=== PATIENT | female | born 1955 | race Caucasian/White ===

== ENCOUNTER → 2017-05-08 09:32 | Outpatient (CLI) | payer OTHER, SELFPAY ==
--- NOTE | 2017-05-08 09:47 | RAD_ITS ---
STUDY: X-RAY - LEFT KNEE REASON FOR EXAM: Female, 61 years old. Pain, no known injury TECHNIQUE: 4 view(s) of the knee. COMPARISON: None. FINDINGS: Normal visualized distal femur. Normal visualized proximal tibia and fibula. Normal proximal tibiofibular articulation. There is moderate degenerative arthrosis of the medial femorotibial compartment with moderate joint space narrowing. There is mild degenerative arthrosis of the lateral femorotibial compartment. There is mild degenerative arthrosis of the patellofemoral articulation. The soft tissue structures are unremarkable. RAD/Knee 4 or More Views IMPRESSION: Tricompartmental degenerative changes of the left knee most severely affecting the medial knee compartment. Electronically Signed: Joseph Boston MD at 22:22 EST , Service support ,
--- NOTE | 2017-05-08 09:49 | RAD_ITS ---
STUDY: X-RAY - RIGHT KNEE REASON FOR EXAM: Female, 61 years old. Bilateral knee pain TECHNIQUE: 4 view(s) of the knee. COMPARISON: None. FINDINGS: Normal visualized distal femur. Normal visualized proximal tibia and fibula. Normal proximal tibiofibular articulation. There is moderate degenerative arthrosis of the medial femorotibial compartment with moderate joint space narrowing. There is mild degenerative arthrosis of the lateral femorotibial compartment. There is severe degenerative arthrosis of the patellofemoral articulation. The soft tissue structures are unremarkable. RAD/Knee 4 or More Views IMPRESSION: Degenerative arthrosis. Electronically Signed: Josehp Boston MD at 16:52 EST , Service support ,
[2017-05-08 13:02] LABS: Absolute Lymphocyte Count 2.65 X10^3/ul (0.83-4.51); Absolute Neutrophil Count 3.6 X10^3/uL (2.0-7.7); Basophil# 0.04 X10^3/uL; Basophil% 0.6 % (0-1); Eosinophil# 0.16 X10^3/uL; Eosinophils% 2.3 % (0-5); Hematocrit 43.1 % (37-47); Hemoglobin 14.2 g/dl (12.0-15.0); Lymphocyte # 2.65 X10^3/ul (4.0); Lymphocyte % 37.7 % (19-41); Mean Corp Hgb Conc 32.9 g/gl (32-36); Mean Corpuscular Hgb 28.9 pg (27.0-32.0); Mean Corpuscular Volume 87.8 fL (81-99); Monocyte% 8.5 % (0-10); Neutrophil # 3.56 X10^3/uL (2.7-7.7); Neutrophil % 50.8 % (47-70); Platelet Count 285 K/mm3 (150-450); RBC Distribution Width CV 13.3 % (11.6-14.6); RBC Distribution Width SD 42.4 fl (35.1-43.9); Red Blood Count 4.91 M/mm3 (4.2-5.4)
[2017-05-08 13:06] LABS: POSITIVE COUNT NO; POSITIVE DIFFERENTIAL NO; POSITIVE MORPHOLOGY NO
[2017-05-08 13:08] LABS: Erythrocyte Sedimentation Rate 3 mm/hr (0-30)
[2017-05-08 13:14] LABS: ALB/GLOB Ratio 1.3 RATIO (0.9-2.4); AST(SGOT) 25 U/L (15-37); Alanine Aminotransfer ALT/SGPT 41 U/L (13-56); Albumin, Serum 4.3 g/dL (3.2-5.0); Alkaline Phosphatase 67 U/L (45-117); Anion Gap 9 (5-15); BUN 17 mg/dL (7-18); BUN/Creat Ratio 17.3 RATIO (10-20); CRP 5.27 mg/L (0.0-3.0); Calcium,Total 9.3 mg/dL (8.5-10.1); Chloride 101 mmol/L (98-107); Creatinine, Serum 0.98 mg/dL (0.55-1.02); EST Glomerular Filtration Rate 62 mL/min (>60); Est Glom Filt Rate - Afr Amer 74 mL/min (>60); Globulin 3.3 g/dL (2.2-4.2); Glucose 89 mg/dL (74-106); Potassium 3.9 mmol/L (3.5-5.1); Protein, Total 7.6 g/dL (6.4-8.2); Rheumatoid Factor < 10.0 IU/mL (<15); Sodium Level 138 mmol/L (136-145)
[2017-05-09 16:10] LABS: SJOGREN'S Anti-SS-A test < 0.2 AI (0.0-0.9); SJOGREN'S Anti-SS-B test 0.6 AI (0.0-0.9)
[2017-05-10 11:20] LABS: ANTINUCLEAR ANTIBODIES DIRECT Negative (Negative)
[2017-05-10 11:55] LABS: HEPATITIS B SURFACE AG Negative (Negative); Hep B Surface Antibodies Non Reactive (.); Hep C Antibodies <0.1 s/co ratio (0.0-0.9)
[2017-05-10 11:56] LABS: CCP IgG Antibodies < 1 units (0-19)
== END ==
PROVIDERS: Family Provider Internal Medicine; PCP Internal Medicine; Visit Provider Internal Medicine Rheumatology
DX: M06.4 Inflammatory polyarthropathy (principal); M17.0 Bilateral primary osteoarthritis of knee; M21.40 Flat foot [pes planus] (acquired), unspecified foot; I10 Essential (primary) hypertension; E11.9 Type 2 diabetes mellitus without complications; G47.33 Obstructive sleep apnea (adult) (pediatric)
CPT/HCPCS: 36415; 73564; 80053; 85025; 85652; 86038; 86140; 86200; 86235; 86431; 86706; 86803; 87340

== ENCOUNTER → 2017-09-17 07:37 | Outpatient (CLI) | payer OTHER, SELFPAY ==
[2017-09-17 10:41] LABS: Cholesterol 184 mg/dL (200); High Density Lipoprotein 42 mg/dL; Triglycerides 196 mg/dL; Very Low Density Lipoprotein 39 mg/dL (5-40)
== END ==
LOC: MTLAB 07:41
PROVIDERS: Family Provider Internal Medicine; PCP Internal Medicine; Visit Provider Internal Medicine
DX: E78.5 Hyperlipidemia, unspecified (principal)
CPT/HCPCS: 36415; 80061

== ENCOUNTER → 2018-03-13 08:17 | Outpatient (CLI) | payer OTHER, SELFPAY ==
[2018-03-13 10:20] LABS: Hemoglobin A1c 5.9 % (4.2-6.3)
[2018-03-13 10:30] LABS: Anion Gap 8 (5-15); BUN 24 mg/dL (7-18); BUN/Creat Ratio 30.3 RATIO (10-20); Calcium,Total 8.7 mg/dL (8.5-10.1); Chloride 104 mmol/L (98-107); Cholesterol 185 mg/dL (200); Creatinine, Serum 0.79 mg/dL (0.55-1.02); EST Glomerular Filtration Rate 78 mL/min (>60); Est Glom Filt Rate - Afr Amer 95 mL/min (>60); Glucose 105 mg/dL (74-106); High Density Lipoprotein 50 mg/dL; Potassium 3.7 mmol/L (3.5-5.1); Sodium Level 141 mmol/L (136-145); Triglycerides 146 mg/dL; Very Low Density Lipoprotein 29 mg/dL (5-40)
[2018-03-13 10:43] LABS: Microalbumin,Random Urine 5.9 mg/L (NO RANGE EST.)
== END ==
LOC: MTLAB 08:19
PROVIDERS: Family Provider Internal Medicine; PCP Internal Medicine; Referring Provider Internal Medicine; Visit Provider Internal Medicine
DX: E11.9 Type 2 diabetes mellitus without complications (principal); I10 Essential (primary) hypertension; E78.5 Hyperlipidemia, unspecified
CPT/HCPCS: 36415; 80048; 80061; 82043; 82570; 83036

== ENCOUNTER → 2018-05-12 07:46 | Outpatient (CLI) | payer OTHER, SELFPAY ==
[2018-05-12 10:10] LABS: Absolute Neutrophil Count 3.7 X10^3/uL (2.0-7.7); Basophil# 0.04 X10^3/uL; Basophil% 0.6 % (0-1); Eosinophil# 0.23 X10^3/uL; Eosinophils% 3.3 % (0-5); Hematocrit 42.4 % (37-47); Hemoglobin 13.9 g/dl (12.0-15.0); Lymphocyte % 35.6 % (19-41); Mean Corp Hgb Conc 32.8 g/gl (32-36); Mean Corpuscular Hgb 28.9 pg (27.0-32.0); Mean Corpuscular Volume 88.1 fL (81-99); Mean Platelet Vol. 9.8 fl (6.2-12.0); Monocyte# 0.55 X10^3/uL; Monocyte% 7.8 % (0-10); Neutrophil # 3.69 X10^3/uL (2.7-7.7); Neutrophil % 52.6 % (47-70); POSITIVE COUNT NO; POSITIVE DIFFERENTIAL NO; POSITIVE MORPHOLOGY NO; Platelet Count 263 K/mm3 (150-450); RBC Distribution Width CV 13.2 % (11.6-14.6); RBC Distribution Width SD 42.5 fl (35.1-43.9); Red Blood Count 4.81 M/mm3 (4.2-5.4)
[2018-05-12 10:46] LABS: ALB/GLOB Ratio 1.2 RATIO (0.9-2.4); AST(SGOT) 19 U/L (15-37); Alanine Aminotransfer ALT/SGPT 24 U/L (13-56); Alkaline Phosphatase 69 U/L (45-117); Anion Gap 8 (5-15); BUN 16 mg/dL (7-18); BUN/Creat Ratio 22.1 RATIO (10-20); Chloride 103 mmol/L (98-107); Cholesterol 137 mg/dL (200); Creatinine, Serum 0.72 mg/dL (0.55-1.02); EST Glomerular Filtration Rate 87 mL/min (>60); Est Glom Filt Rate - Afr Amer 105 mL/min (>60); Globulin 3.4 g/dL (2.2-4.2); Glucose 112 mg/dL (74-106); High Density Lipoprotein 63 mg/dL; Potassium 3.7 mmol/L (3.5-5.1); Protein, Total 7.4 g/dL (6.4-8.2); Sodium Level 138 mmol/L (136-145); Thyroid Stim Hormone (TSH) 2.59 uIU/mL (0.358-3.74); Triglycerides 98 mg/dL; Very Low Density Lipoprotein 20 mg/dL (5-40)
[2018-05-12 10:47] LABS: Hemoglobin A1c 5.7 % (4.2-6.3)
== END ==
LOC: MTLAB 07:49
PROVIDERS: Family Provider Family Medicine; PCP Family Medicine; Referring Provider Registered Nurse; Visit Provider Registered Nurse
DX: R53.82 Chronic fatigue, unspecified (principal); E66.9 Obesity, unspecified
CPT/HCPCS: 36415; 80053; 80061; 83036; 84443; 85025

== ENCOUNTER → 2019-03-20 08:57 | Outpatient (CLI) | payer OTHER, SELFPAY ==
--- NOTE | 2019-03-20 09:03 | RAD_ITS ---
STUDY: X-RAY - PELVIS AND BILATERAL HIPS REASON FOR EXAM: Female, 63 years old. hip pain, more on the left TECHNIQUE: AP view of the pelvis.? 2 views of the right hip, and 2 views of the left hip were obtained. COMPARISON: None. FINDINGS: There is a non-specific bowel gas pattern. Normal visualized soft tissue structures. There is narrowing with cortical sclerosis and osteophyte formation of the sacroiliac joint consistent with degenerative osteoarthritic changes. Normal bilateral superior and inferior pubic rami. Normal pubic symphysis. Normal bilateral ischial tuberosities. Normal visualized right femoral head. There is mild osteoarthritic spur formation of the right acetabular rim. There is mild articular joint space narrowing of the right hip. Normal visualized left femoral head. There is mild osteoarthritic spur formation of the left acetabular rim. There is mild articular joint space narrowing of the left hip. RAD/Hips B/L min 2 views w/ Pelvis IMPRESSION: Degenerative disease of the SI joints, bilateral hips otherwise normal X-ray examination of the pelvis and bilateral hips. Electronically Signed: Alana Zavala MD at 4:14 EST , Service support ,
--- NOTE | 2019-03-20 09:03 | RAD_ITS ---
STUDY: X-RAY - RIGHT KNEE REASON FOR EXAM: Female, 63 years old. Knee pain TECHNIQUE: 4 view(s) of the knee. COMPARISON: None. FINDINGS: Normal visualized distal femur. Normal visualized proximal tibia and fibula. Normal proximal tibiofibular articulation. There is moderate degenerative arthrosis of the medial femorotibial compartment with moderate joint space narrowing. Normal lateral femorotibial compartment. There is moderate degenerative arthrosis of the patellofemoral articulation. The soft tissue structures are unremarkable. RAD/Knee 4 or More Views IMPRESSION: Degenerative arthrosis. Electronically Signed: Abhishek Rubin MD at 9:08 EST , Service support ,
--- NOTE | 2019-03-20 09:03 | RAD_ITS ---
STUDY: X-RAY - LEFT KNEE REASON FOR EXAM: Female, 63 years old. Knee pain TECHNIQUE: 4 view(s) of the knee. COMPARISON: None. FINDINGS: Normal visualized distal femur. Normal visualized proximal tibia and fibula. Normal proximal tibiofibular articulation. Minimal spurring and narrowing at the medial femorotibial compartment. Mild spurring at the lateral femorotibial compartment. Mild spurring and narrowing at the patellofemoral articulation. The soft tissue structures are unremarkable. Chondrocalcinosis of the menisci. RAD/Knee 4 or More Views IMPRESSION: Degenerative changes of the knee. Electronically Signed: Alvin Cobb DO at 10:34 EST Tel [phone], Service support ,
[2019-03-20 09:09] LABS: Mucous, Urine 0 SEEN /hpf (<or=2+); Red Blood Cells-Urine 0 SEEN /hpf (0-5)
[2019-03-20 10:17] LABS: Color, Urine Yellow (Yellow); Glucose, Dipstick Normal (Normal); Ketone-Dipstick Negative (Negative); Leukocyte Esterase-Dipstick 500 /ul (Negative); Nitrite-Dipstick Negative (Negative); Occult Blood-Urine 10 /ul (Negative); Protein-Dipstick Negative (Negative); Urine Bilirubin Dipstick Negative (Negative); Urine Clarity Clear (Clear); Urine Urobilinogen Normal (Normal)
[2019-03-20 10:25] LABS: Absolute Lymphocyte Count 3.29 X10^3/uL (0.83-4.51); Absolute Neutrophil Count 4.7 X10^3/uL (2.0-7.7); Basophil# 0.07 X10^3/uL; Basophil% 0.8 % (0-1); Eosinophil# 0.15 X10^3/uL; Eosinophils% 1.7 % (0-5); Hematocrit 44.2 % (37-47); Hemoglobin 14.8 g/dL (12.0-15.0); Lymphocyte # 3.29 X10^3/ul (4.0); Lymphocyte % 36.7 % (19-41); Mean Corp Hgb Conc 33.5 g/dL (32-36); Mean Corpuscular Hgb 29.1 pg (27.0-32.0); Mean Platelet Vol. 9.9 fl (6.2-12.0); Monocyte# 0.78 X10^3/uL; Monocyte% 8.7 % (0-10); NRBC Flagged by Analyzer 0 % (0-5); Neutrophil # 4.65 X10^3/uL (2.7-7.7); Neutrophil % 51.9 % (47-70); Platelet Count 277 K/mm3 (150-450); RBC Distribution Width CV 12.7 % (11.6-14.6); Red Blood Count 5.08 M/mm3 (4.2-5.4)
[2019-03-20 10:38] LABS: Bacteria 1+ /hpf (None Seen); Squamous Epithelial Cells - UA 0-5 SEEN /hpf (5-10); White Blood Cells 0-5 SEEN /hpf (0-5)
[2019-03-20 10:49] LABS: Hemoglobin A1c 5.6 % (4.2-6.3)
[2019-03-20 10:54] LABS: ALB/GLOB Ratio 1.3 RATIO (0.9-2.4); AST(SGOT) 16 U/L (15-37); Alanine Aminotransfer ALT/SGPT 23 U/L (13-56); Albumin, Serum 4.4 g/dL (3.2-5.0); Alkaline Phosphatase 86 U/L (45-117); Anion Gap 5 (5-15); BUN 11 mg/dL (7-18); BUN/Creat Ratio 14.7 RATIO (10-20); Calcium,Total 9.7 mg/dL (8.5-10.1); Chloride 103 mmol/L (98-107); Cholesterol 153 mg/dL (200); Creatinine, Serum 0.75 mg/dL (0.55-1.02); EST Glomerular Filtration Rate 83 mL/min (>60); Est Glom Filt Rate - Afr Amer 101 mL/min (>60); Globulin 3.4 g/dL (2.2-4.2); Glucose 98 mg/dL (74-106); High Density Lipoprotein 66 mg/dL; Potassium 3.8 mmol/L (3.5-5.1); Protein, Total 7.8 g/dL (6.4-8.2); Sodium Level 137 mmol/L (136-145); Thyroid Stim Hormone (TSH) 1.44 uIU/mL (0.358-3.74); Triglycerides 105 mg/dL; Very Low Density Lipoprotein 21 mg/dL (5-40)
[2019-03-20 11:42] LABS: Microalbumin,Random Urine 10.3 mg/L (NO RANGE EST.); Microalbumin:Creatinine Ratio 15.8 mg/g CRE (<30 mg/g CRE)
== END ==
PROVIDERS: Family Provider Family Medicine; PCP Family Medicine; Referring Provider Family Medicine; Visit Provider Family Medicine
DX: M25.551 Pain in right hip (principal); M25.552 Pain in left hip; M25.561 Pain in right knee; M25.562 Pain in left knee; E11.9 Type 2 diabetes mellitus without complications; I10 Essential (primary) hypertension; E78.5 Hyperlipidemia, unspecified
CPT/HCPCS: 36415; 73521; 73564; 80053; 80061; 81001; 82043; 82570; 83036; 84443; 85025

== ENCOUNTER → 2020-05-26 11:34 | Outpatient (CLI) | payer MEDICAID, SELFPAY ==
[2020-05-26 14:56] LABS: Absolute Lymphocyte Count 3.13 X10^3/uL (0.83-4.51); Absolute Neutrophil Count 4.2 X10^3/uL (2.0-7.7); Basophil# 0.06 X10^3/uL; Basophil% 0.7 % (0-1); Eosinophil# 0.18 X10^3/uL; Eosinophils% 2.1 % (0-5); Lymphocyte # 3.13 X10^3/ul (4.0); Mean Corp Hgb Conc 33.3 g/dL (32-36); Mean Corpuscular Hgb 29.7 pg (27.0-32.0); Mean Corpuscular Volume 89.2 fL (81-99); Mean Platelet Vol. 10.1 fl (6.2-12.0); Monocyte# 0.84 X10^3/uL; Monocyte% 9.9 % (0-10); NRBC Flagged by Analyzer 0 % (0-5); Neutrophil # 4.22 X10^3/uL (2.7-7.7); Neutrophil % 49.9 % (47-70); Platelet Count 282 K/mm3 (150-450); RBC Distribution Width CV 13.8 % (11.6-14.6); RBC Distribution Width SD 45.1 fl (35.1-43.9); Red Blood Count 4.71 M/mm3 (4.2-5.4); White Blood Count 8.5 K/mm3 (4.4-11.0)
[2020-05-26 15:27] LABS: Hemoglobin A1c 5.6 % (3.8-5.6)
[2020-05-26 15:36] LABS: ALB/GLOB Ratio 1.2 RATIO (0.9-2.4); AST(SGOT) 10 U/L (15-37); Alanine Aminotransfer ALT/SGPT 20 U/L (13-56); Albumin, Serum 4.1 g/dL (3.2-5.0); Alkaline Phosphatase 73 U/L (45-117); Anion Gap 5 (5-15); BUN 25 mg/dL (7-18); BUN/Creat Ratio 31.7 RATIO (10-20); Calcium,Total 9.6 mg/dL (8.5-10.1); Chloride 102 mmol/L (98-107); Cholesterol 270 mg/dL (200); Creatinine, Serum 0.79 mg/dL (0.55-1.02); EST Glomerular Filtration Rate 78 mL/min (>60); Est Glom Filt Rate - Afr Amer 95 mL/min (>60); Globulin 3.5 g/dL (2.2-4.2); Glucose 97 mg/dL (74-106); High Density Lipoprotein 62 mg/dL; Potassium 3.9 mmol/L (3.5-5.1); Protein, Total 7.6 g/dL (6.4-8.2); Sodium Level 139 mmol/L (136-145); Thyroid Stim Hormone (TSH) 2.67 uIU/mL (0.358-3.74); Triglycerides 92 mg/dL; Very Low Density Lipoprotein 18 mg/dL (5-40)
== END ==
PROVIDERS: Nurse Practitioner Adult Health
DX: I10 Essential (primary) hypertension (principal); Z12.11 Encounter for screening for malignant neoplasm of colon
CPT/HCPCS: 36415; 80053; 80061; 82274; 83036; 84443; 85025

== ENCOUNTER → 2020-06-29 10:35 | Outpatient (CLI) | payer MEDICAID, SELFPAY ==
--- NOTE | 2020-06-29 10:37 | BI_ITS ---
MAMMOGRAPHY - BILATERAL SCREENING REASON FOR EXAM: Female, 64 years old. Routine annual screening examination. PERTINENT HISTORY: Non-contributory. TECHNIQUE: Digital bilateral breast emy (3D mammographic acquisition) in the CC and MLO projections. 2-D mediolateral oblique (MLO) and craniocaudad (CC) views of both breasts were obtained. CAD: Full Field Digital Mammography with Computer Added Detection was performed. COMPARISON: Comparison is made with prior examination dated 12/02/2015. FINDINGS: Breast Composition: The breasts are almost entirely fatty. There are no dominant masses or suspicious calcifications. No other significant abnormalities are identified. There has been no significant change since the prior study. BI/SCRN MAMM (CAD)W/EMY BILAT IMPRESSION: Stable bilateral screening mammogram. Yearly follow-up mammogram recommended. (A) ASSESSMENT CATEGORY: BIRADS Category 1: Negative. A letter regarding these results will be sent to the patient by the facility within 30 days. Approximately 10% of breast cancers are not detected by mammography. A normal mammogram should not delay biopsy of a clinically suspicious abnormality. [id number] Electronically Signed: Cooper Latham MD at 13:19 EDT , Service support ,
--- NOTE | 2020-06-29 10:40 | BD_ITS ---
STUDY: DUAL ENERGY X-RAY ABSORPTIOMETRY / DXA REASON FOR EXAM: Female, 64 years old. M810 -- OSTEO TECHNIQUE: Bone Mineral Density (BMD) measurements of lumbar spine and bilateral hips were obtained. COMPARISON: None. FINDINGS: Lumbar Spine (L1-L4): g/cm2 (1.384) / T-score (1.7) / Z-score (3.2) Findings are suggestive of normal bone density with a low fracture risk. Left Femur Total: g/cm2 (1.224) / T-score (1.7) / Z-score (2.8) Left Femoral Neck: g/cm2 (1.080) / T-score (0.3) / Z-score (1.7) Right Femur Total: g/cm2 (1.225) / T-score (1.7) / Z-score (2.8) Right Femoral Neck: g/cm2 (1.142) / T-score (0.7) / Z-score (2.1) BD/Dexa Bone Density Study IMPRESSION: The patient is considered normal as outlined below according to World Alok Organization (WHO) criteria with a low fracture risk. Reference Information: The T-score is the number of standard deviations above or below the standard which is normal for young adults at their peak bone mineral density. The World Health Organization (WHO) interprets the T-scores as follows: Above -1 Normal bone density Between -1 and -2.5 Osteopenia Equal to / or below -2.5 Osteoporosis As a practical clinical guideline, osteopenia may be graded as follows: Mild -1 through -1.5 Moderate -1.6 through -2.0 Severe -2.1 through -2.4 The Z-score is the number of standard deviations above or below age-matched controls. A Z-score of less than -1.5 would be considered abnormal. References: 1. NIH Osteoporosis and Related Bone Diseases www osteo.org 2. International Society for Clinical Densitometry www iscd.org 3. National Osteoporosis Foundation www nof.org Electronically Signed: Cooper Latham MD at 15:44 EDT , Service support ,
== END ==
DX: Z12.31 Encounter for screening mammogram for malignant neoplasm of breast (principal); M81.0 Age-related osteoporosis without current pathological fracture
CPT/HCPCS: 77063; 77067; 77080

== ENCOUNTER → 2022-05-18 | Outpatient (CLI) | payer MEDICARE, SELFPAY ==
[2022-05-18 11:28] LABS: Hematocrit 42.6 % (37-47); Hemoglobin 14.3 g/dL (12.0-15.0); Mean Corp Hgb Conc 33.6 g/dL (32-36); Mean Corpuscular Hgb 29.1 pg (27.0-32.0); Mean Corpuscular Volume 86.6 fL (81-99); Mean Platelet Vol. 9.8 fl (6.2-12.0); Platelet Count 287 K/mm3 (150-450); RBC Distribution Width CV 13.1 % (11.6-14.6); RBC Distribution Width SD 41.2 fl (35.1-43.9); Red Blood Count 4.92 M/mm3 (4.2-5.4)
[2022-05-18 11:59] LABS: ALB/GLOB Ratio 1.2 RATIO (0.9-2.4); AST(SGOT) 19 U/L (15-37); Alanine Aminotransfer ALT/SGPT 17 U/L (13-56); Albumin, Serum 4.3 g/dL (3.2-5.0); Alkaline Phosphatase 75 U/L (45-117); Anion Gap 5 (5-15); BUN 21 mg/dL (7-18); BUN/Creat Ratio 23.3 RATIO (10-20); Calcium,Total 9.4 mg/dL (8.5-10.1); Chloride 102 mmol/L (98-107); Cholesterol 151 mg/dL (200); EST Glomerular Filtration Rate 67 mL/min (>60); Est Glom Filt Rate - Afr Amer 81 mL/min (>60); Globulin 3.7 g/dL (2.2-4.2); Glucose 105 mg/dL (74-106); High Density Lipoprotein 59 mg/dL; Potassium 3.8 mmol/L (3.5-5.1); Sodium Level 138 mmol/L (136-145); T4 Total, Thyroxin 9.6 ug/dL (4.8-13.9); Thyroid Stim Hormone (TSH) 2.03 uIU/mL (0.358-3.74); Triglycerides 128 mg/dL; Very Low Density Lipoprotein 26 mg/dL (5-40)
[2022-05-18 12:01] LABS: Hemoglobin A1c 5.5 % (3.8-5.6)
== END | disposition home or self-care (01) ==
LOC: LAB 10:14
PROVIDERS: Referring Provider Nurse Practitioner Women's Health; Visit Provider Nurse Practitioner Women's Health
DX: R87.615 Unsatisfactory cytologic smear of cervix (principal); E78.5 Hyperlipidemia, unspecified
CPT/HCPCS: 36415; 80053; 80061; 83036; 84436; 84443; 85027

== ENCOUNTER → 2023-01-25 | Outpatient (CLI) | payer MEDICARE, SELFPAY ==
[2023-01-25 08:24] LABS: Erythrocyte Sedimentation Rate 7 mm/hr (0-30)
[2023-01-25 08:27] LABS: Absolute Lymphocyte Count 2.47 X10^3/uL (0.83-4.51); Absolute Neutrophil Count 4.8 X10^3/uL (2.0-7.7); Basophil# 0.06 X10^3/uL; Basophil% 0.7 % (0-1); Eosinophil# 0.28 X10^3/uL; Eosinophils% 3.3 % (0-5); Hematocrit 43.3 % (37-47); Hemoglobin 13.6 g/dL (12.0-15.0); Lymphocyte # 2.47 X10^3/ul (0.83-4.51); Lymphocyte % 29.5 % (19-41); Mean Corp Hgb Conc 31.4 g/dL (32-36); Mean Corpuscular Hgb 28.3 pg (27.0-32.0); Mean Corpuscular Volume 90.2 fL (81-99); Mean Platelet Vol. 9.6 fl (6.2-12.0); Monocyte% 8.4 % (0-10); NRBC Flagged by Analyzer 0 % (0-5); Neutrophil # 4.81 X10^3/uL (2.7-7.7); Neutrophil % 57.6 % (47-70); Platelet Count 316 K/mm3 (150-450); RBC Distribution Width CV 13.1 % (11.6-14.6); White Blood Count 8.4 K/mm3 (4.4-11.0)
[2023-01-25 09:37] LABS: Hemoglobin A1c 5.5 % (3.8-5.6)
[2023-01-25 11:07] LABS: ALB/GLOB Ratio 1.1 RATIO (0.9-2.4); AST(SGOT) 13 U/L (15-37); Alanine Aminotransfer ALT/SGPT 18 U/L (13-56); Albumin, Serum 3.8 g/dL (3.2-5.0); Alkaline Phosphatase 78 U/L (45-117); Anion Gap 3 (5-15); BUN 25 mg/dL (7-18); BUN/Creat Ratio 28.1 RATIO (10-20); CRP, High Sensitivity Cardiac 7.53 mg/L; Calcium,Total 9.3 mg/dL (8.5-10.1); Chloride 104 mmol/L (98-107); Cholesterol 230 mg/dL (200); Creatinine, Serum 0.89 mg/dL (0.55-1.02); EST Glomerular Filtration Rate 67 mL/min (>60); Est Glom Filt Rate - Afr Amer 82 mL/min (>60); Globulin 3.5 g/dL (2.2-4.2); Glucose 111 mg/dL (74-106); High Density Lipoprotein 51 mg/dL; Magnesium 2.6 mg/dL (1.6-2.6); Potassium 4.3 mmol/L (3.5-5.1); Protein, Total 7.3 g/dL (6.4-8.2); Rheumatoid Factor < 10.0 IU/mL (<15); Sodium Level 139 mmol/L (136-145); Triglycerides 152 mg/dL; Very Low Density Lipoprotein 30 mg/dL (5-40)
[2023-01-28 13:07] LABS: ANTINUCLEAR ANTIBODIES DIRECT Negative (Negative)
== END | disposition home or self-care (01) ==
LOC: LAB 07:19
PROVIDERS: Nurse Practitioner Family
DX: R00.2 Palpitations (principal); E78.5 Hyperlipidemia, unspecified; I10 Essential (primary) hypertension; E66.9 Obesity, unspecified; M25.50 Pain in unspecified joint
CPT/HCPCS: 36415; 80053; 80061; 83036; 83735; 84443; 85025; 85652; 86038; 86141; 86431

== ENCOUNTER 2023-02-04 14:31 | Emergency (ER) | payer MEDICARE, SELFPAY ==
[2023-02-04] VITALS (7 sets, daily range): BP systolic 187–231; BP diastolic 70–114; PULSE 60–90; RESP 20–22; TEMP 36.2; O2SAT 91–97; BMI 51.3
--- NOTE | 2023-02-04 14:50 | EKG12_ITS ---
Test Reason : SOB Blood Pressure : / mmHG Vent. Rate : 064 BPM Atrial Rate : 064 BPM P-R Int : 162 ms QRS Dur : 086 ms QT Int : 436 ms P-R-T Axes : 040 -17 006 degrees QTc Int : 449 ms Normal sinus rhythm Moderate voltage criteria for LVH, may be normal variant ( R in aVL , Patterson product ) Borderline ECG Confirmed by BIN MAN, KYLER ([id number]), book editor GABRIEL MANTILLA ([id number]) on 02/05/2023 7:53:53 AM Referred By: Confirmed By:KYLER STEWARD MD
--- NOTE | 2023-02-04 14:52 | ED.RN ---
NO OLD EKG
--- NOTE | 2023-02-04 14:54 | ED.VIS.DYS ---
HPI History of Present Illness Chief Complaint: Shortness of Breath Informant: patient Narrative Narrative: Presents to the ED by private vehicle worsening dyspnea over the past week. Denies cough. States minimal leg swelling. Denies orthopnea. Denies COPD or asthma, remote tobacco quit 15 years ago. Occasional chest pain and tightness with walking. No fevers or headaches. History of hypertension on metoprolol losartan hydrochlorothiazide took her dosing this morning. Denies any cardiac history. She states she works in [employer] and [employer]. Symptoms worsened today. States her pulse ox was 87% at home. She denies recent travel, surgeries, or immobilizations. No history of PE or DVT. She states she is hoping it was just COVID. PE Risk Factors: Negative for Cancer, OCP + Smoking + > 35, Prior DVT or PE, Recent immobilization, Recent surgery or Recent travel Prior similar symptoms: No PFSH PFSH Medical History (Updated 02/04/23 @ 20:[address] Stevenson Falcon DO) HTN (hypertension) Home Medications losartan 100 mg-hydrochlorothiazide 25 mg tablet tab 02/04/23 [History Last Taken Unknown] meloxicam 15 mg tablet mg 02/04/23 [History Last Taken Unknown] metoprolol tartrate 100 mg tablet mg 02/04/23 [History Last Taken Unknown] oxybutynin chloride 10 mg tablet,extended release 24 hr mg PO 02/04/23 [History Last Taken Unknown] rosuvastatin 10 mg tablet mg 02/04/23 [History Last Taken Unknown] Allergy/AdvReac Type Severity Reaction Status Date / Time No Known Allergies Allergy Verified 02/04/23 14:32 Social History Smoking Status: Former smoker ROS ROS ED Constitutional Constitutional ED: Denies chills, fever(s) or sweats Eyes Eyes: Denies change in vision ENT ENT ED: Denies dysphagia or sore throat Cardiovascular Cardiovascular: Denies chest pain, leg edema, orthopnea, palpitations or racing heartbeat Respiratory/Chest Respiratory/Chest: Reports dyspnea and dyspnea on exertion; Denies cough or orthopnea Gastrointestinal Gastrointestinal: Denies abdominal pain, diarrhea, nausea or vomiting Genitourinary Genitourinary ED: Denies dysuria, hematuria or urinary frequency Musculoskeletal Musculoskeletal: Denies back pain, extremity pain or neck pain Integumentary Denies rash or wounds Neurologic Neurologic: Denies headache(s), paresthesias or weakness EXAM Physical Exam Const Vital Signs: 02/04/23 14:32 02/04/23 15:01 02/04/23 15:05 Temperature 97.2 F L Temperature Source Temporal Pulse Rate 90 66 Respiratory Rate 20 H 20 H Respiratory Effort Normal Respiratory Depth Normal Respiratory Pattern Normal Blood Pressure 231/114 H 193/96 H Blood Pressure Mean 153 128 Pulse Ox 91 95 Oxygen Delivery Method Room Air Room Air Room Air 02/04/23 18:38 02/04/23 19:47 02/04/23 20:13 Temperature Temperature Source Pulse Rate 60 64 Respiratory Rate 22 H 21 H Respiratory Effort Respiratory Depth Respiratory Pattern Blood Pressure 187/70 H 195/97 H 202/95 H Blood Pressure Mean 109 129 130 Pulse Ox 96 97 Oxygen Delivery Method Room Air Room Air Positive well nourished and well developed General Appearance ED: well developed and NAD HEENT Reports moist mucous membranes normocephalic and atraumatic Eyes PERRL, EOMs intact bilaterally and conjunctivae normal General Eye ED: Yes normal appearance of both eyes Neck no lymphadenopathy and supple General: Negative for tenderness Chest Wall Chest: Negative for tenderness Resp normal respiratory effort and normal air movement Effort and Inspection: symmetric chest movement; Negative for respiratory distress Cardio regular rate, regular rhythm and no murmurs Peripheral Pulses: pulses 2+ throughout GI normal to inspection, nondistended, normoactive bowel sounds and non-tender Palpation: Negative for guarding or rebound tenderness present Back/Spine no CVA tenderness and no thoracic nor lumbar tenderness Extremity normal to inspection General Extremety ED: Negative for edema or tenderness General Extremity: Negative for edema Neuro oriented x3 and no sensory deficits noted Sensorium / Orientation: awake and alert Skin no rashes or lesions noted and no wounds MDM MDM MDM Narrative Medical decision making narrative: Interventions / MDM: Differential diagnosis: Dyspnea, hypertension Diagnosis considered but do not suspect: Pulm embolism however CT negative. DVT, negative ultrasound. ACS however EKG with no ischemic findings with cardiac enzymes negative x 2. My EKG interpretation: Sinus rhythm 64, no ST changes, isolated T wave version lead III. Nonspecific. Imaging independently reviewed and interpreted by myself: CTA chest: No PE, no acute process, artifact noted peripherally per radiology. External documents reviewed: N/A Test considered but not ordered:N/A ED course: Patient exertional dyspnea without any cough. Blood pressure elevated 231/114 on arrival. No orthopnea symptoms. Cardiac workup initiated, low risk Wells criteria for PE, D-dimer obtained. EKG with nonspecific findings. 1600: Initial opponent negative BNP 433. D-dimer up at 1.66. CTA chest ordered for further evaluation. COVID and flu. 1800: CTA negative for central PE there is respiratory artifact unable to evaluate peripherally per radiology read. Ultrasound lower extremities ordered negative for DVT. 1900: Repeat troponin negative. Patient was ambulated reported mild dyspnea however not as significant as previous, pulse ox lowest at 94%. Blood pressure improved without treatment. Daughter currently present and patient states she has been having increasing urine frequency no dysuria. Request urine be sent. This was ordered. Results of urine negative. Patient reassured. She will continue home blood pressure medicines she will keep a log. She will monitor symptoms. Discussed likely would need a stress echocardiogram for further evaluation as an outpatient. Strict return precautions. All questions were answered. Re-evaluation: stable Disposition discussed with patient/family/significant other: Patient and daughter Case discussed with consulting clinician: N/A This note was generated with [employer] dictation software. It may contain incorrect words, spelling, and punctuation that were not noted in checking the note before signing. Lab Data Attestation: I reviewed the patient's lab results. Labs: Laboratory Results - last 24 hr 02/04/23 02/04/23 02/04/23 15:00 17:45 19:20 WBC 10.7 RBC 4.79 Hgb 13.6 Hct 42.2 MCV 88.1 MCH 28.4 MCHC 32.2 RDW Std Deviation 42.1 RDW Coeff of Angelica 13.0 Plt Count 281 MPV 9.5 Immature Gran % (Auto) 0.600 Neut % (Auto) 63.2 Lymph % (Auto) 26.4 [place] % (Auto) 6.5 Eos % (Auto) 2.6 Baso % (Auto) 0.7 Absolute Neuts (auto) 6.8 Absolute Lymphs (auto) 2.83 Nucleated RBC % 0 PT 12.9 INR 1.0 APTT 29.6 D-Dimer Quant (PE/DVT) 1.66 H* Sodium 138 Potassium 3.9 Chloride 105 Carbon Dioxide 27.0 Anion Gap 6 BUN 19 H Creatinine 0.66 Estim Creat Clear Calc 51.81 Est GFR (MDRD) Af Amer 115 Est GFR (MDRD) Non-Af 95 BUN/Creatinine Ratio 28.8 H Glucose 105 Calcium 9.0 Troponin I High Sens 15 15 B-Natriuretic Peptide 433.7 H Urine Color Yellow Urine Clarity Clear Urine pH 8.0 Ur Specific [place] 1.010 Urine Protein Negative Urine Glucose (UA) Normal Urine Ketones Negative Urine Occult Blood 10 H Urine Nitrite Negative Urine Bilirubin Negative Urine Urobilinogen Normal Ur Leukocyte Esterase Negative Urine RBC 0 SEEN Urine WBC 0 SEEN Ur Squamous Epith Cells 0 SEEN Urine Bacteria 0 SEEN Urine Mucus 0 SEEN Radiography Diagnostic Testing: Clinical Impression(s) from Imaging Studies Chest CTA 02/04/23 15:36 IMPRESSION: No definitive evidence for embolus given limited study due to respiratory motion artifact If strong clinical suspicion for pulmonary embolus Doppler scanning of deep venous system of lower extremities recommended ASHD and mild interstitial thickening in the lower lobes. Electronically Signed: oCmpa Flowers MD at 16:33 EST Reading Location ID and State: [address] [place] [address] Tel [phone], Service support , Venous Duplex 02/04/23 17:07 IMPRESSION: Normal venous Doppler ultrasound of the bilateral lower extremities. Electronically Signed: Compa Flowers MD at 18:00 EST , Discharge Plan Triage Chief Complaint: Shortness of Breath ED Provider: Stevenson Falcon Dx/Rx/DC Orders Clinical Impression: Urine frequency, Dyspnea, Hypertension Instructions: Controlling High Blood Pressure, ED Dyspnea Prescriptions: No Action oxybutynin chloride 10 mg tablet extended release 24hr PO Patient Comments: take 1 tablet by mouth once daily metoprolol tartrate 100 mg tablet Patient Comments: take 1 tablet by mouth twice a day meloxicam 15 mg tablet Patient Comments: take 1 tablet by mouth once daily losartan-hydrochlorothiazide 100-25 mg tablet Patient Comments: take 1 tablet by mouth once daily rosuvastatin 10 mg tablet Patient Comments: take 1 tablet by mouth once daily Primary Care Provider: [facility] Referrals: [facility] [Primary Care Provider] - 3-5 Days Activity Restrictions/Additional Instructions: Your cardiac workup negative today. You are CT chest negative for PE. Your ultrasound leg negative for DVT. Your urine is negative for any infection. Blood pressure is elevated, continue home blood pressure medicines keep a log of your blood pressure. Follow-up with your primary team for recheck blood pressure and adjust medications if needed. He will likely need a stress echocardiogram for further evaluation of your symptoms continue. Pulse ox is stable in the ED. If your symptoms worsens, return to the emergency department for reevaluation. Disposition Disposition: Home, Self Care Discharge Date/Time: 02/04/23 20:35
[2023-02-04 15:13] LABS: Absolute Lymphocyte Count 2.83 X10^3/uL (0.83-4.51); Absolute Neutrophil Count 6.8 X10^3/uL (2.0-7.7); Basophil# 0.07 X10^3/uL; Basophil% 0.7 % (0-1); Eosinophil# 0.28 X10^3/uL; Eosinophils% 2.6 % (0-5); Hematocrit 42.2 % (37-47); Hemoglobin 13.6 g/dL (12.0-15.0); Lymphocyte # 2.83 X10^3/ul (0.83-4.51); Lymphocyte % 26.4 % (19-41); Mean Corp Hgb Conc 32.2 g/dL (32-36); Mean Corpuscular Hgb 28.4 pg (27.0-32.0); Mean Corpuscular Volume 88.1 fL (81-99); Mean Platelet Vol. 9.5 fl (6.2-12.0); Monocyte% 6.5 % (0-10); NRBC Flagged by Analyzer 0 % (0-5); Neutrophil # 6.76 X10^3/uL (2.7-7.7); Neutrophil % 63.2 % (47-70); Platelet Count 281 K/mm3 (150-450); RBC Distribution Width SD 42.1 fl (35.1-43.9); Red Blood Count 4.79 M/mm3 (4.2-5.4); White Blood Count 10.7 K/mm3 (4.4-11.0)
[2023-02-04 15:23] LABS: Prothrombin Time (Protime)PT. 12.9 SECONDS (11.7-14.9)
[2023-02-04 15:24] LABS: Partial Thromboplast Time 29.6 Seconds (24.1-36.2)
[2023-02-04 15:31] LABS: Anion Gap 6 (5-15); BUN 19 mg/dL (7-18); BUN/Creat Ratio 28.8 RATIO (10-20); Chloride 105 mmol/L (98-107); Creatinine, Serum 0.66 mg/dL (0.55-1.02); EST Glomerular Filtration Rate 95 mL/min (>60); Est Glom Filt Rate - Afr Amer 115 mL/min (>60); Estimated Creatinine Clearance 51.81 ml/min; Glucose 105 mg/dL (74-106); Potassium 3.9 mmol/L (3.5-5.1); Sodium Level 138 mmol/L (136-145); Troponin-I HS (w/2H Reflex) 15 pg/mL (3.0-54.0)
[2023-02-04 15:34] LABS: D-Dimer Quantitative (DVT/PE) 1.66 FEU/ug/m (0.27-0.49)
--- NOTE | 2023-02-04 15:36 | CT_ITS ---
STUDY: CTA CHEST REASON FOR EXAM: Female, 67 years old. dyspnea RADIATION DOSAGE (If Supplied By Facility): CTDIvol = ( 40.89 ) mGy, DLP = ( 745.65 ) mGycm TECHNIQUE: The examination was performed with the intravenous administration of IV 100mL Isovue-370. Post-processing of the angiographic images was performed, with multiplanar reformation and 3D reconstruction. Individualized dose optimization techniques were used for this CT. COMPARISON: None. FINDINGS: Normal enhancement of the main pulmonary artery and right and left pulmonary arteries. There is no definitive evidence for intraluminal clot although examination is limited due to multiple filling defects within the segmental and subsegmental vessels bilaterally due to respiratory motion artifact . Atherosclerotic changes of the aorta without evidence for aneurysm There is no demonstrated aortic dissection. The heart is enlarged. There is mild coronary artery calcification Tiny calcified left hilar and mediastinal nodes. Normal visualized trachea and bronchi. The lungs are well expanded. Mild interstitial thickening in the lower lobes. No focal infiltration or pulmonary nodules. Normal pleura. Normal chest wall structures. Dorsal spine demonstrates degenerative changes.. Small hiatal hernia noted Normal visualized upper abdomen. CT/CTA Chest W/WO Contrast IMPRESSION: No definitive evidence for embolus given limited study due to respiratory motion artifact If strong clinical suspicion for pulmonary embolus Doppler scanning of deep venous system of lower extremities recommended ASHD and mild interstitial thickening in the lower lobes. Electronically Signed: Compa Flowers MD at 16:33 EST ,
[2023-02-04 15:41] LABS: BNP,B-Type NATRIURETIC PEPTIDE 433.7 pg/mL (0-100)
--- NOTE | 2023-02-04 17:07 | US_ITS ---
STUDY: VENOUS DOPPLER ULTRASOUND - BILATERAL LOWER EXTREMITIES REASON FOR EXAM: Female, 67 years old. SOB TECHNIQUE: Ultrasound evaluation of the deep vein system to include onofre-scale imaging and compression was performed. Onofre-scale imaging and Doppler sonographic evaluation, including duplex spectral analysis and qualitative color flow sonography, was performed. COMPARISON: None. FINDINGS: RIGHT LEG Common Femoral Vein: Normal compression, spontaneity and augmentation. Normal color Doppler. Common Femoral Vein/Greater Saphenous Junction: Normal compression, spontaneity and augmentation. Normal color Doppler. Deep Femoral Vein: Normal compression, spontaneity and augmentation. Normal color Doppler. Femoral Proximal: Normal compression, spontaneity and augmentation. Normal color Doppler. Femoral Middle: Normal compression, spontaneity and augmentation. Normal color Doppler. Femoral Distal: Normal compression, spontaneity and augmentation. Normal color Doppler. Popliteal Vein: Normal compression, spontaneity and augmentation. Normal color Doppler. Posterior Tibial Vein: Normal compression, spontaneity and augmentation. Normal color Doppler. Peroneal Vein: Normal compression, spontaneity and augmentation. Normal color Doppler. LEFT LEG Common Femoral Vein: Normal compression, spontaneity and augmentation. Normal color Doppler. Common Femoral Vein/Greater Saphenous Junction: Normal compression, spontaneity and augmentation. Normal color Doppler. Deep Femoral Vein: Normal compression, spontaneity and augmentation. Normal color Doppler. Femoral Proximal: Normal compression, spontaneity and augmentation. Normal color Doppler. Femoral Middle: Normal compression, spontaneity and augmentation. Normal color Doppler. Femoral Distal: Normal compression, spontaneity and augmentation. Normal color Doppler. Popliteal Vein: Normal compression, spontaneity and augmentation. Normal color Doppler. Posterior Tibial Vein: Normal compression, spontaneity and augmentation. Normal color Doppler. Peroneal Vein: Normal compression, spontaneity and augmentation. Normal color Doppler. US/Venous Duplex Imag/Kody Extrem IMPRESSION: Normal venous Doppler ultrasound of the bilateral lower extremities. Electronically Signed: Compa Flowers MD at 18:00 EST ,
[2023-02-04 17:08] LABS: Reflex Troponin-HS? (from REC) Y
[2023-02-04 18:11] LABS: Troponin-I HS 15 pg/mL (3.0-54.0)
[2023-02-04 19:29] LABS: Color, Urine Yellow (Yellow); Glucose, Dipstick Normal (Normal); Ketone-Dipstick Negative (Negative); Leukocyte Esterase-Dipstick Negative /ul (Negative); Nitrite-Dipstick Negative (Negative); Occult Blood-Urine 10 /ul (Negative); Protein-Dipstick Negative (Negative); Urine Bilirubin Dipstick Negative (Negative); Urine Clarity Clear (Clear); Urine Urobilinogen Normal (Normal)
[2023-02-04 19:30] LABS: Bacteria 0 SEEN /hpf (None Seen); Mucous, Urine 0 SEEN /hpf (<or=2+); Red Blood Cells-Urine 0 SEEN /hpf (0-5); Squamous Epithelial Cells - UA 0 SEEN /hpf (5-10); White Blood Cells 0 SEEN /hpf (0-5)
== END 2023-02-04 20:35 | disposition home or self-care (01) ==
PROVIDERS: Emergency Provider Emergency Medicine; Visit Provider Emergency Medicine
DX: R35.0 Frequency of micturition (principal); I10 Essential (primary) hypertension; Z11.52 Encounter for screening for COVID-19; R06.00 Dyspnea, unspecified; R07.9 Chest pain, unspecified; Z79.899 Other long term (current) drug therapy; Z87.891 Personal history of nicotine dependence
CPT/HCPCS: 71275; 80048; 81001; 83880; 84484; 85025; 85379; 85610; 85730; 87428; 93005; 93970; 99284; Q9967; A4216

== ENCOUNTER → 2023-02-07 | Outpatient (CLI) | payer MEDICARE, SELFPAY | END | disposition home or self-care (01) | LOC: PSN 06:51 | PROVIDERS: Referring Provider Nurse Practitioner Family; Visit Provider Nurse Practitioner Family | DX: R00.2 Palpitations (principal) | CPT/HCPCS: 93225; 93226 ==

== ENCOUNTER → 2023-03-01 | Outpatient (CLI) | payer MEDICARE, SELFPAY ==
--- NOTE | 2023-03-01 15:10 | STRESSREP ---
Stress Test Report Pharmacologic myocardial perfusion stress test. 67-year-old lady with a history of shortness of breath Resting EKG demonstrates normal sinus rhythm with a rate of 62 bpm. Resting blood pressure is 128/70 mmHg. 0.4 mg of regadenoson was infused per usual protocol followed by rapid intravenous saline flush injection. Continuous EKG monitoring was performed. The maximum heart rate was 109 bpm which was 70% of max impacted heart rate the maximum workload was 1 metabolic equivalent. At rest there were no ST or T wave changes noted to suggest ischemia and at peak infusion nonspecific ST changes were noted which did not meet the criteria for ischemia. No clinical angina is noted. The final blood pressure was 132/70 mmHg. Myocardial perfusion protocol. 15.0 mCi of technetium 99m sestamibi was injected at rest. 0.4 mg of regadenoson was infused per usual protocol. At peak infusion 44.8 mCi of technetium 99m sestamibi was injected stress images were obtained stress and rest images were reconstructed and compared in the short axis vertical long and horizontal long axis. Gated images were also obtained. Perfusion SPECT analysis: Review of the stress images demonstrate normal uptake of tracer noted in all areas of the myocardium. The resting images similar demonstrated normal uptake of tracer noted in all areas of the myocardium. No areas of reversibility are noted to suggest ischemia and no previous infarct is noted. Gated SPECT analysis: The gated ejection fraction is 52%. Conclusion: Normal pharmacologic myocardial perfusion stress test. Preserved ejection fraction.
== END | disposition home or self-care (01) ==
LOC: CVS 06:09
PROVIDERS: Referring Provider Nurse Practitioner Family; Visit Provider Nurse Practitioner Family
DX: R06.09 Other forms of dyspnea (principal)
CPT/HCPCS: 78452; 93017; A9500; A4216; J2785

== ENCOUNTER → 2023-03-20 | Outpatient (CLI) | payer MEDICARE, SELFPAY ==
--- OUTSIDE RECORDS SUMMARY | 2023-03-20 16:57 | XMS RPT_ITS | CCD ---
Author Name Unknown Address [address] [place] [address] Organization [facility] Care Team Providers Care Runner Man Name Role Phone RAMON, HERBER AMADO Unavailable Unavailable ROYAL, SEAN S. Unavailable Unavailable [place], Sean S Unavailable Unavailable [place], Sean S Unavailable Unavailable [place], Sean S Unavailable Unavailable [place], Sean S Unavailable Unavailable [place], Sean S Unavailable Unavailable [place], Sean S Unavailable Unavailable [place], Sean S Unavailable Unavailable [place], Sean S Unavailable Unavailable [place], Sean S Unavailable Unavailable [place], Sean S Unavailable Unavailable [place], Sean S Unavailable Unavailable [place], Sean S Unavailable Unavailable [place], Sean S Unavailable Unavailable [place], Sean S Unavailable Unavailable [place], Sean S Unavailable Unavailable [place], Sean S Unavailable Unavailable [place], Sean S Unavailable Unavailable [place], Sean S Unavailable Unavailable [place], Sean S Unavailable Unavailable [place], Sean S Unavailable Unavailable [place], Sean S Unavailable Unavailable [place], Sean S Unavailable Unavailable SUSY TAFOYA Referring Unavailable BENJAMIN CONTRERAS Primary Care Unavailable BENJAMIN CONTRERAS Primary Care Unavailable SUSY TAFOYA Referring Unavailable BENJAMIN CONTRERAS Primary Care Unavailable SUSY TAFOYA Attending Unavailable Problems Problem Classification Problem Date Documented Da te Episodic/Chronic Other aftercare (1 source) 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; Translations: [Anticoagulated] Onset: 03-14-2023 Episodic Other circulatory disease (1 source) Personal history of other diseases of the circulatory system; Translations: [History of atrial fibrillation] Onset: 03-14-2023 Episodic Other connective tissue disease (1 source) Trochanteric bursitis, left hip; Translations: [Trochanteric bursitis of left hip] Onset: 03-14-2023 Episodic Other connective tissue disease (1 source) Trochanteric bursitis, right hip; Translations: [Trochanteric bursitis of right hip] Onset: 03-14-2023 Episodic Other non-traumatic joint disorders (1 source) Pain in right shoulder; Translations: [Bilateral shoulder pain, unspecified chronicity] Onset: 03-14-2023 Episodic Other non-traumatic joint disorders (1 source) Pain in left shoulder; Translations: [Bilateral shoulder pain, unspecified chronicity] Onset: 03-14-2023 Episodic Other non-traumatic joint disorders (1 source) Pain in unspecified joint; Translations: [Pain in joint, multiple sites] Onset: 03-14-2023 Episodic Other skin disorders (1 source) Rash and other nonspecific skin eruption; Translations: [Rash and nonspecific skin eruption] Onset: 03-14-2023 Episodic Results Test Name Value Interpretation Reference Range Facil ity Encounters Encounter Date Encounter Type Care Provider Facility Start: 03-14-2023 End: 03-14-2023 ambulatory [facility] Facility:[facility] Start: 09-19-2017 End: 09-20-2017 Patient encounter Sean S [facility] Start: 09-19-2017 Patient encounter Facil [id number] Start: 07-05-2017 End: 07-05-2017 Patient encounter Sean S [facility] Start: 05-06-2017 Ambulatory [facility] Start: 05-02-2017 End: 05-03-2017 Patient encounter Sean David Facility[facility] Start: 04-18-2017 End: 04-18-2017 Patient encounter Sean S [facility] Start: 03-20-2017 End: 03-21-2017 Patient encounter Sean David [facility] Start: 03-06-2017 End: 03-07-2017 Patient encounter Sean S [facility] Payers Date Payer Category Payer Private Health Insurance [id number] 2017 Private Health Insurance Private Health Insurance [id number] Progress note 03-14-2023 Note Date & Type Note Facility 03-14-2023 Note HNO ID: [id number] Author: MATTHEW HUERTAS RT(R) Service: Radiology Author Type: Technologist Type: Progress Notes Filed: 03/14/2023 13:27 Note Text: Radiology Service Progress Note PATIENT NAME: Ximena Odom DATE OF SERVICE: March 14, 2023 TIME: 1:26 PM PATIENT IDENTITY VERIFICATION COMPLETED USING TWO (2) IDENTIFIERS: Name and Date of confirmed by patient verbally. FALL SCREENING: Has the patient had 2 falls in the last year or 1 fall with injury or currently using an Ambulatory Assistive Device (Walker, Cane, Wheelchair, Crutches, etc.)? No PATIENT GENDER DATA: Female. status: Unknown status: NO. PATIENT RELEVANT IMPLANT DATA REVIEWED: Yes RADIOLOGY DEPARTMENT: General X-ray: Exam(s) Completed: Pelvis X-Ray: Pelvis with Hip Right and Left Lower Extremity X-Ray(s): Knee, AP / Lat / Tunne / Merchant Bilateral and Wt. Bearing and Feet, Bilateral Upper Extremity X-Ray(s): Shoulder, AP / TRUE AP bilateral and Hand, bilateral PERIPHERAL IV DATA: Not applicable SIGNED BY: RT Kalli(R) March 14, 2023 1:26 PM [facility] Summary Purpose Family History No Family History Records FoundNo Family History Records FoundNo Family History Records FoundNo Family History Records FoundNo Family History Records Found Advance Directives No Advanced Directives Records FoundNo Advanced Directives Records FoundNo Advanced Directives Records FoundNo Advanced Directives Records FoundNo Advanced Directives Records Found Additional Source Comments INFORMATION SOURCE (unrecogn ized section and content) DATE CREATED AUTHOR AUTHOR'S ORGANIZ ATION 09/20/2017 [facility] DATE CREATED AUTHOR AUTHOR'S ORGANIZ ATION 11/01/2017 [facility] DATE CREATED AUTHOR AUTHOR'S ORGANIZ ATION 04/25/2021 [facility] DATE CREATED AUTHOR AUTHOR'S ORGANIZ ATION 03/15/2023 [facility] FOR RECORDS PERTAINING TO PATIENTS WHO ARE OR HAVE BEEN ENROLLED IN A CHEMICAL DEPENDENCY/SUBSTANCEABUSE PROGRAM, SOME INFORMATION MAY BE OMITTED. This clinical summary was aggregated from multiple sources. Caution should be exercised in using it in the provision of clinical care. This summary normalizes information from multiple sources, and as a consequence, information in this document may materially change the coding, format and clinical context of patient data. In addition, data may be omitted in some cases. CLINICAL DECISIONS SHOULD BE BASED ON THE PRIMARY CLINICAL RECORDS. [facility] [employer] [facility]. provides no warranty or guarantee of the accuracy or completeness of information in this document.
[2023-03-23 16:09] LABS: Lyme IgG P18 Ab Absent (.); Lyme IgG P23 Ab Absent (.); Lyme IgG P28 Ab Absent (.); Lyme IgG P30 Ab Absent (.); Lyme IgG P39 Ab Absent (.); Lyme IgG P41 Ab Absent (.); Lyme IgG P45 Ab Absent (.); Lyme IgG P58 Ab Absent (.); Lyme IgG P66 Ab Absent (.); Lyme IgG P93 Ab Absent (.); Lyme IgG WB Interpretation Negative (.); Lyme IgM P23 Ab Absent (.); Lyme IgM P39 Ab Absent (.); Lyme IgM P41 Ab Absent (.); Lyme IgM WB Interpretation Negative (.)
== END | disposition home or self-care (01) ==
LOC: LAB 16:47
PROVIDERS: Referring Provider Nurse Practitioner Family; Visit Provider Nurse Practitioner Family
DX: M25.50 Pain in unspecified joint (principal)
CPT/HCPCS: 36415; 86617

== ENCOUNTER → 2023-04-29 | Outpatient (CLI) | payer MEDICARE, SELFPAY ==
--- NOTE | 2023-04-29 14:58 | ECHOD_ITS ---
Reason For Study: PALPITATIONS Procedure This was a 2D Doppler, Color Flow transthoracic echocardiogram. The study was technically difficult. Exam performed in department. Left Ventricle Normal LV size. Left ventricular systolic function is normal. The estimated ejection fraction is 65 %. Stage 1 diastolic dysfunction. No regional wall motion abnormalities noted. Right Ventricle Normal RV size. Normal systolic function. Atria The left atrium is mildly enlarged. Normal right atrium. Mitral Valve Normal mitral valve. Tricuspid Valve Normal tricuspid valve. Mild tricuspid valve insufficiency. Pulmonary artery systolic pressure is 30 mmHg. Aortic Valve Normal aortic valve. Pulmonic Valve Normal pulmonic valve. Great Vessels Normal aortic root. The pulmonary artery is normal size. Inferior vena cava collapse with respiration. Pericardium/Pleural No pericardial effusion. MMode/2D Measurements & Calculations LVIDd: 4.7 cm IVSd: 1.1 cm Ao root diam: 3.1 cm LVIDs: 3.2 cm LVPWd: 1.1 cm RVDd: 3.5 cm FS: 32.7 % LAV(MOD-bp): 55.1 ml LVAd ap4: 37.8 cm2 SV(MOD-sp4): 85.2 ml LAV(MOD-bp) Indexed: 23.2 ml/m2 LVLd ap4: 8.8 cm LAV(MOD-sp2): 54.1 ml EDV(MOD-sp4): 132.6 ml LAV(MOD-sp4): 55.9 ml EDV(sp4-el): 138.1 ml LVAs ap4: 20.0 cm2 LVLs ap4: 7.1 cm ESV(MOD-sp4): 47.4 ml ESV(sp4-el): 47.8 ml EF(MOD-sp4): 64.2 % EF(sp4-el): 65.4 % SV(sp4-el): 90.3 ml LA A4 area: 21.7 cm2 LA dimension(2D): 4.7 cm RA A4 area: 18.7 cm2 TAPSE: 2.8 cm Time Measurements MV dec time: 0.27 sec Doppler Measurements & Calculations MV E max elier: 72.1 cm/sec Lat Peak E' Elier: 13.1 cm/sec Med Peak E' Elier: 7.2 cm/sec MV A max elier: 83.0 cm/sec E/E' lat: 5.5 E/E' med: 10.0 MV E/A: 0.87 Ao V2 max: 155.1 cm/sec LV V1 max: 116.3 cm/sec PA V2 max: 122.9 cm/sec Ao max P.6 mmHg LV V1 max P.4 mmHg TR max elier: 260.0 cm/sec TR max P.0 mmHg ECHO/Echo Complete Interpretation Summary Normal LV size. Left ventricular systolic function is normal. The estimated ejection fraction is 65 %. Stage 1 diastolic dysfunction. The left atrium is mildly enlarged. Pulmonary artery systolic pressure is 30 mmHg. Ordering Physician: Mitch Perez Referring Physician: RAYMON TAM Performed By: Sully Ulloa RDCS
--- OUTSIDE RECORDS SUMMARY | 2023-04-29 17:56 | XMS RPT_ITS | CCD ---
Author Name Unknown Address [address] [place] [address] Organization [facility] Care Team Providers Care Vamp Wetter Name Role Phone RAMONHERBER Unavailable Unavailable ROYAL, SEAN S. Unavailable Unavailable Dundee, Sean S Unavailable Unavailable Dundee, Sean S Unavailable Unavailable Dundee, Sean S Unavailable Unavailable Dundee, Sean S Unavailable Unavailable Dundee, Sean S Unavailable Unavailable Dundee, Sean S Unavailable Unavailable Dundee, Sean S Unavailable Unavailable Dundee, Sean S Unavailable Unavailable Dundee, Sean S Unavailable Unavailable Dundee, Sean S Unavailable Unavailable Dundee, Sean S Unavailable Unavailable Dundee, Sean S Unavailable Unavailable Dundee, Sean S Unavailable Unavailable Dundee, Sean S Unavailable Unavailable Dundee, Sean S Unavailable Unavailable Dundee, Sean S Unavailable Unavailable Dundee, Sean S Unavailable Unavailable Dundee, Sean S Unavailable Unavailable Dundee, Sean S Unavailable Unavailable Dundee, Sean S Unavailable Unavailable Dundee, Sean S Unavailable Unavailable Dundee, Sean S Unavailable Unavailable Mika [employer] COUNSELOR, Benjamin Primary Care Provider ZAID DELGADILLO Attending Unavailable MIKA, BENJAMIN Primary Care Unavailable MICHELET, AMBREESH Referring Unavailable MIKA, BENJAMIN Primary Care Unavailable MICHELET, AMBREESH Referring Unavailable O'KIKIMALU ORTEGABENJAMIN Attending Unavailable MIKA, BENJAMIN Primary Care Unavailable MICHELET, AMBREESH Referring Unavailable MIKA, BENJAMIN Primary Care Unavailable MICHELET, AMBREESH Referring Unavailable MIKA, BENJAMIN Primary Care Unavailable MICHELET, AMBREESH Attending Unavailable MIKA, BENJAMIN Primary Care Unavailable MICHELET, AMBREESH Referring Unavailable O'KIKI, BENJAMIN Attending Unavailable MIKA, BENJAMIN Primary Care Unavailable MICHELET, AMBREESH Referring Unavailable BENJAMIN JAUREGUI Attending Unavailable Medications Current Medications Medication Drug Class(es) Dates Sig (Normalized) Sig (Original) methocarbamol 750 mg oral tablet (1 source) Muscle Relaxant Start: 04-09-2023 End: 07-08-2023 take 1 tablet by mouth three times daily methocarbamol (ROBAXIN) 750 mg tablet Take 1 tablet by mouth three times a day. 90 tablet 2 04/09/2023 07/08/2023 Active Completed/Discontinued Medications Medication Drug Class(es) Dates Sig (Normalized) Sig (Original) amLODIPine 10 mg oral tablet (2 sources) Dihydropyridine Calcium Channel Alan Start: 03-13-2023 take 1 tablet by mouth once amLODIPine (NORVASC) 10 mg tablet Take 1 tablet by mouth every afternoon. 0 03/13/2023 Active Problems Problem Classification Problem Date Documented Da te Episodic/Chronic Other aftercare (1 source) Drug therapy finding; Translations: [intermediate (current) use of anticoagulants] 03-14-2023 Episodic Other aftercare (1 source) intermediate (current) use of anticoagulants; Translations: [Anticoagulated] Onset: 03-14-2023 Episodic Other circulatory disease (1 source) H/O: atrial fibrillation; Translations: [Personal history of other diseases of the circulatory system] 03-14-2023 Episodic Other circulatory disease (1 source) Personal history of other diseases of the circulatory system; Translations: [History of atrial fibrillation] Onset: 03-14-2023 Episodic Other connective tissue disease (2 sources) Trochanteric bursitis of left hip; Translations: [Trochanteric bursitis, left hip] Onset: 03-26-2023 03-14-2023 Episodic Other connective tissue disease (2 sources) Trochanteric bursitis of right hip; Translations: [Trochanteric bursitis, right hip] Onset: 03-26-2023 03-14-2023 Episodic Other connective tissue disease (1 source) Trochanteric bursitis, left hip; Translations: [Trochanteric bursitis of left hip] Onset: 03-14-2023 Episodic Other connective tissue disease (1 source) Trochanteric bursitis, right hip; Translations: [Trochanteric bursitis of right hip] Onset: 03-14-2023 Episodic Other non-traumatic joint disorders (3 sources) Pain in right shoulder; Translations: [Pain in joint, shoulder region] Onset: 03-14-2023 03-14-2023 Episodic Other non-traumatic joint disorders (3 sources) Multiple joint pain; Translations: [Pain in unspecified joint] Onset: 03-26-2023 03-14-2023 Episodic Other non-traumatic joint disorders (1 source) Pain in left shoulder; Translations: [Bilateral shoulder pain, unspecified chronicity] Onset: 03-14-2023 Episodic Other non-traumatic joint disorders (1 source) Pain in unspecified joint; Translations: [Pain in joint, multiple sites] Onset: 03-14-2023 Episodic Other skin disorders (1 source) Eruption; Translations: [Rash and other nonspecific skin eruption] 03-14-2023 Episodic Other skin disorders (1 source) Rash and other nonspecific skin eruption; Translations: [Rash and nonspecific skin eruption] Onset: 03-14-2023 Episodic Results Test Name Value Interpretation Reference Range Facil ity Vital Signs Date Time Vital Sign Value Performing Clinician Faci lity 03-14-2023 11:14-0500 Body weight 138.71 kg Charlene Villalta MD Work Phone: [facility] 03-14-2023 11:14-0500 Diastolic blood pressure 73 mm[Hg] Charlene Villalta MD Work Phone: [facility] 03-14-2023 11:14-0500 Heart rate 59 /min Charlene Villalta MD Work Phone: [facility] 03-14-2023 11:14-0500 Systolic blood pressure 161 mm[Hg] Charlene Villalta MD Work Phone: [facility] Encounters Encounter Date Encounter Type Care Provider Facility Start: 04-16-2023 ambulatory Charlene briones MD Work Phone: Rheumatology Plan of Treatment Date Care Activity Detail Author Start: 03-14-2026 Diabetes Screening Diabetes Screening [facility] Start: 04-18-2023 End: 07-18-2023 Erythrocyte sedimentation rate SED RATE [facility] Lab Routine Pain in joint, multiple sites Expected: 04/18/2023, Expires: 07/18/2023 [facility] Work Phone: Payers Date Payer Category Payer Medicare [employer]NA MEDICARE HU[employer]NA GOLD PLUS [id number] 2022-Present [phone] [address] [address] [place] [address] HMO [id number] 2022 Private Health Insurance [id number] 2017 Private Health Insurance Private Health Insurance [id number] Social History Date Type Detail Facility Start: 03-14-2023 [facility] End: 03-11-2002 History of tobacco use Current smoker [facility] End: 03-11-2002 History of tobacco use Cigarette Smoker [facility] Start: 03-14-2023 Tobacco use and exposure Smoke less tobacco non-user [facility] Start: 03-14-2023 History of Social function [facility] Start: 03-14-2023 Tobacco use panel [facility] National Score (1-10 0), lower number is lower risk 51 [facility] Start: 1955 Sex Assigned At Not on file [facility] Clinical Notes 03-14-2023 to 04-15-2023 Patient Charlene Mary MD - 03/14/2023 11:32 AM EST Note Date & Type Note Facility 04-15-2023 Note HNO ID: [id number] Author: ZAID DELGADILLO PT, DPT Service: ? Author Type: Physical Therapist Type: Progress Notes Filed: 04/15/2023 17:48 Note Text: Episode Visit Count: 4 Therapist That Will Accept/Oversee The Plan Of Care: Benjamin Jauregui Start of Care Date: 03/26/23 Onset Date: 02/04/23 Plan of Care Certification Date: 03/26/23 Next Certification Due Date: 04/30/23 Patient Identified by Name and Date of : Yes REHABILITATION AND SPORTS THERAPY PHYSICAL THERAPY TREATMENT NOTE ASSESSMENT: Ximena Odom tolerated the session with decreased symptoms. She demonstrated ongoing difficulty with AROM of bilateral shoulders L>R due to pain. Tolerated scapular strengthening exercises well this session. Enjoyed GH distraction pendulum with 5# DB. She tolerated progression of LE exercises without pain this session. The patient will continue to benefit from ongoing skilled physical therapy to progress toward set goals. PLAN FOR NEXT VISIT: Progress shoulder and hip HEP as able, shoulder AAROM, scapular strength SUBJECTIVE: Patient is taking muscle relaxer but is unsure if it is helping. Patient is doing HEP ~1 time per day Pain: Pain Pain Level: 6 Pain Location: Shoulder - Left, Hip - Right Post Treatment Pain Post Treatment Pain Level: Better Post Treatment Pain Location: Hip - Right, Shoulder - Left OBJECTIVE MEASURES WITH LEVEL OF FUNCTION: UE AROM R Shoulder Flex: (~160 degrees AAROM during wall slide) L Shoulder Flex: (~160 degrees AAROM during wall slide, more painful than right) TREATMENT: Therapeutic Exercise: 1: Nustep level 2, 5 min, 1:1 throughout, subjective collected 2: Standing straight arm pull down verse GTB 2x10 3: Standing shoulder extension AAROM with dowel 2x10 4: Wall slide x10 bilat, table slide x10 bilat 5: ER band pull apart at neutral verse OTB 2x10 6: GH joint distraction pendulum position with 5# DB x1 minute bilat 7: Seated hip add isometric with ball 5 sec hold 2x10 8: Seated hip IR x10 bilat 9: *Standing hip abduction 2x10 bilat 10: *Supine bridge x10, supine bridge adduction iso x10, supine bridge abduction iso GTB x10 Skilled Intervention: Patient was educated in proper exercise technique and purpose for exercises. Reviewed and educated patient on additions/changes for home exercise program as above (*). Skilled judgment was used in selection of appropriate interventions. Provided written instruction for home exercise program to facilitate proper performance and compliance. Correct performance of therapeutic exercises was facilitated with verbal and visual cuing. Billing Therapeutic Exercise Treatment Minutes: 42 Skilled Treatment Time Minutes (timed and untimed codes): 42 Total Session Time (minutes): 42 Session Start Time : 1546 Session Stop Time : 1628 Zaid Delgadillo PT, DPT [facility] 04-10-2023 Note HNO ID: [id number] Author: BENJAMIN JAUREGUI PT Service: ? Author Type: Physical Therapist Type: Progress Notes Filed: 04/10/2023 17:01 Note Text: Episode Visit Count: 3 Therapist That Will Accept/Oversee The Plan Of Care: Benjamin Jauregui Start of Care Date: 03/26/23 Onset Date: 02/04/23 Plan of Care Certification Date: 03/26/23 Next Certification Due Date: 04/30/23 REHABILITATION AND SPORTS THERAPY PHYSICAL THERAPY TREATMENT NOTE ASSESSMENT: Ximena Odom tolerated the session with increased symptoms. She demonstrated improvements in activity tolerance when using nustep and beata AAROM for the shoulders. She demonstrates full AAROM FE with beata each shoulder without reports of pain. The patient will continue to benefit from ongoing skilled physical therapy to progress toward set goals. PLAN FOR NEXT VISIT: Address hip pain SUBJECTIVE: Pt. reports that physician has Rx'd a muscle relaxer for her. She plans to try this at home, she just picked it up. Pain: Pain Pain Level: 10 Pain Location: Shoulder - Right Description: Aching Pain Level 2: 10 Pain Location 2: Hip - Right Frequency 2: Standing, Walking Post Treatment Pain Post Treatment Pain Level: 0 Post Treatment Pain Location: Shoulder - Left Post Treatment Symptoms: 0 Post Treatment Pain Location 2: Hip - Right OBJECTIVE MEASURES WITH LEVEL OF FUNCTION: TREATMENT: Therapeutic Exercise: 1: Nustep level 1, 5 min, 1:1 throughout, subjective collected 2: seated beata AAROM flexion 2x10,5 sec hold 3: seated scapular retraction 2x15 4: seated H abd beata 2x10 each side 5: Access Code: [email or web address] URL: [email or web address] Date: 04/10/2023 Prepared by: Benjamin Jauregui Exercises - Seated Shoulder Flexion AAROM with Beata Behind - 2 x daily - 7 x weekly - 2 sets - 20 reps - 5 hold - Seated Scapular Retraction - 2 x daily - 7 x weekly - 2 sets - 15 reps - 1 hold - Seated Shoulder Scaption AAROM with Beata at Side - 1 x daily - 7 x weekly - 2 sets - 20 reps - 1 hold 6: seated scapular circles fwd and reverse 1x15 each direction 7: *old HEP 1x./day, new beata HEP 1x/day 8: *beata issued Skilled Intervention: Patient was educated in proper exercise technique and purpose for exercises. Skilled judgment was used in selection of appropriate interventions. Provided written instruction for home exercise program to facilitate proper performance and compliance. Correct performance of therapeutic exercises was facilitated with verbal, visual, and tactile cuing. Educated patient on rationale for performing exercises in regards to decreasing fatigue , increase ease of ADL, and ROM and function . Patient education as noted. Billing Therapeutic Exercise Treatment Minutes: 40 Skilled Treatment Time Minutes (timed and untimed codes): 40 Total Session Time (minutes): 40 Session Start Time : 1628 Session Stop Time : 1708 Benjamin Jauregui PT [facility] 04-02-2023 Note HNO ID: [id number] Author: BENJAMIN JAUREGUI PT Service: ? Author Type: Physical Therapist Type: Progress Notes Filed: 04/02/2023 17:02 Note Text: Episode Visit Count: 2 Therapist That Will Accept/Oversee The Plan Of Care: Benjamin Jauregui Start of Care Date: 03/26/23 Onset Date: 02/04/23 Plan of Care Certification Date: 03/26/23 Next Certification Due Date: 04/30/23 REHABILITATION AND SPORTS THERAPY PHYSICAL THERAPY TREATMENT NOTE ASSESSMENT: Ximena Odom tolerated the session with decreased symptoms. She demonstrated improvements in R hip and L shoulder pain following AAROM repeated movements today. The patient will continue to benefit from ongoing skilled physical therapy to progress toward set goals. Current Frequency: 2x/week PLAN FOR NEXT VISIT: SUBJECTIVE: Pt. reports her hip has increased hip pain. Pain: Pain Pain Level: 7 Pain Location: Shoulder - Left, Elbow - Left Description: Aching Frequency: With movement Pain Level 2: 0 Pain Location 2: Hip - Right Frequency 2: Standing, Walking Post Treatment Pain Post Treatment Pain Level: Better Post Treatment Pain Location: Shoulder - Left Post Treatment Symptoms: better per pt. report -- even with WB ambulation Post Treatment Pain Location 2: Hip - Right OBJECTIVE MEASURES WITH LEVEL OF FUNCTION: UE PROM R UE PROM: 180 AAROM with wand scaption and flexion L UE PROM: 180 AAROM with wand scaption and flexion ( discomfort but not pain felt at end range) LE PROM R Hip Flexion: 100 Degrees LE Flexibility Flexibility: Hip Flexor Flexibility R Hip Flexor Flexibility: limited TREATMENT: Therapeutic Exercise: 1: supine hook lying RLE hip [place] 2x10 ( feels good per pt. report) 2: *Access Code: [email or web address] URL: [email or web address] Date: 04/02/2023 Prepared by: Benjamin Jauregui Exercises - Supine Gluteal Sets - 2 x daily - 7 x weekly - 2 sets - 10 reps - 1 hold - Supine Quad Set - 2 x daily - 7 x weekly - 2 sets - 10 reps - 5 hold - Supine Heel Slide - 2 x daily - 7 x weekly - 2 sets - 10 reps - 1 hold 3: supine wand scapular protraction wand AAROM 2x15 4: supine AAROM wand B shoulder flexion 2x15 5: supine AAROM wand B shoulder scaption 2x15 Skilled Intervention: Patient was educated in proper exercise technique and purpose for exercises. Skilled judgment was used in selection of appropriate interventions. Provided written instruction for home exercise program to facilitate proper performance and compliance. Educated patient on rationale for performing exercises in regards to decreasing fatigue , increase ease of ADL, and ROM and function . Patient education as noted. Billing Therapeutic Exercise Treatment Minutes: 40 Skilled Treatment Time Minutes (timed and untimed codes): 40 Total Session Time (minutes): 40 Session Start Time : 1624 Session Stop Time : 1704 Benjamin Jauregui PT [facility] 03-26-2023 Note HNO ID: [id number] Author: BENJAMIN JAUREGUI PT Service: ? Author Type: Physical Therapist Type: Progress Notes Filed: 03/26/2023 16:26 Note Text: Episode Visit Count: 1 Therapist That Will Accept/Oversee The Plan Of Care: Benjamin Jauregui Start of Care Date: 03/26/23 Onset Date: 02/04/23 Plan of Care Certification Date: 03/26/23 Next Certification Due Date: 04/30/23 Patient Identified by Name and Date of : Yes REHABILITATION AND SPORTS THERAPY PHYSICAL THERAPY EVALUATION PLAN OF CARE: Assessment: Ximena Odom presents with diagnosis of bilateral shoulder pain, trochanteric bursitis of the R and L hip, pain in multiple joints that interferes with physical activities, walking in the community, walking in the house, walking, standing, reaching overhead, use hand with arm at shoulder level . She presents with impairments in ADL's, flexibility, gait, independence in exercise, joint mobility, overall function, patient reported outcome measures, posture, range of motion, strength, and symptom management. PROMIS? (Patient-Reported Outcomes Measurement Information System) scores were reviewed and physical function domain and self efficacy domain identified as a rehabilitation concern. Prognosis for therapy is Good due to: current objective clinical presentation, good overall health status, acuteness of condition, good support system/ coping skills, within-session changes, positive past response to therapy . She will benefit from skilled therapy services to meet the goals established for this plan of care as noted below. Goals for Episode of Care: created on 03/26/23 through 05/07/23 [place] in home exercise program. Patient will decrease pain rating by 2 points to meet minimal clinical important difference for numeric pain rating scale. Patient will increase active ROM of L shoulder abduction to 135 or greater to allow pt to to improve performance of ADLs. Perform sit > standing with decreased report of symptoms/pain in 6 weeks. Perform community distance ambulation without pain. Normal gait. Patient Goals: pt. wants to be able to help her daughter with ADLs Planned Interventions, Frequency, and Duration: Current Frequency: 2x/week Duration: 6 weeks Total Number of Visits Planned: 12 Planned Treatment Interventions: Therapeutic exercise (00874), Self-mcfp management (99779), Neuromuscular re-education (37159), Manual therapy (60900), Therapeutic activities (33398), Gait Training (37362) PLAN FOR NEXT VISIT: assess hip next visit Patient demonstrates good understanding of plan of care and treatment. The above goals and plan of care were discussed and agreed upon by patient/family. SUBJECTIVE: for pain everywhere. She reports that she became ill and had ED visit 02/04/23. Not admitted to the hospital. Pt. reports SOB, HTN, and aftib. She states that she tested negative for covid but has felt generalized pain and fatigue since. Pt. has started some chair exercises. Pt. reports new onset of L shoulder pain since hospitalization, stating she can barely lift it up. Pt. has returned to a keto diet but does not noticed reduced symptoms. R hip pain with rising from a chair and L shoulder pain with raising the L shoulder overhead or out to the side Patient Goals: pt. wants to be able to help her daughter with ADLs Functional Limitations: physical activities, walking in the community, walking in the house, walking, standing, reaching overhead, use hand with arm at shoulder level Prior Level of Function: Independent without limitations Relevant History Past Relevant Medical Conditions: Anxiety, Depression, Hypertension, Atrial Fibrillation Right or Left Handed: Right Home Environment Patient Lives With: Family Intake Information: Prescription present Falls Interview: No positive findings with falls interview Red Flags Vertebral Fracture Red Flags: Female Vertebral Fracture Clinical Reasoning: Proceed with caution due to the above (1-2) risk factors Abdominal Aortic Aneurysm Red Flags: Age >60 Abdominal Aortic Aneurysm Clinical Reasoning: Proceed with caution Cancer Red Flags: Age >50 or <20 Cancer Clinical Reasoning: Proceed with caution Infection Clinical Reasoning: No identified risk factors. Cauda Equina Syndrome Clinical Reasoning: No identified risk factors. Red Flags - Cervical Cancer Red Flags: Age >50 or <20 Cancer Clinical Reasoning: Proceed with caution Infection Clinical Reasoning: No identified risk factors. Spine History Symptoms Location at Onset: Back, Thigh Symptoms Since Onset: Unchanging Pain is Worse Always: Standing, Walking, On the Move, Rising Pain is Better Always: Lying Sleeping Position: Supine Sleep Affected by Pain: Pain awakens Pain: Pain Pain Level: 8 Pain Location: Shoulder - Left, Elbow - Left Description: Aching Frequency: With movement Additional Pain Information : Location 2 Pa (more content not included)... [facility] 03-14-2023 Note HNO ID: [id number] Author: RHIANNON JARRETT RT(R) Service: Radiology Author Type: Technologist Type: [...] PERIPHERAL IV DATA: Not applicable SIGNED BY: Rhiannon Jarrett, RT(R) March 14, 2023 1:26 PM [facility] 03-14-2023 Note HNO ID: [id number] Author: CHARLENE VILLALTA MD Service: ? Author Type: Physician Type: Progress Notes Filed: 03/24/2023 12:16 Note Text: Rheumatology History AND Physical Patient name: Ximena Odom Requesting provider: No att. providers found SUBJECTIVE History of Present Illness: Ms. Ximena Odom is a 67 year old female who has a PMHx of former smoker, atrial fibrillation (on AC), HTN, obesity, anxiety/depression, urinary incontinence, HLD, anxiety/depression who presents for rheumatologic evaluation. PSHx: She has no past surgical history on file. Allergies: She has No Known Allergies. Current Meds: amlodipine, eliquis, fluoxetine, lisdexamfetamine, losartan-hydrochlorothiazide, metoprolol tartrate (short acting), oxybutynin er, and rosuvastatin. Family History: she is unsure whether she has any FHx of rheumatologic conditions. Social History: She reports that she quit smoking about 21 years ago. Her smoking use included cigarettes. She has never used smokeless tobacco. OUTSIDE RECORDS: 01/31: (-)RF TSH WNL DEXA 06/29: normal lowest T score 0.3 LFN XR L KNEE 03/30: minimal spurring and narrowing of medial femorotibial compartment. Chondrocalcinosis of menisci XR R KNEE 04/28: moderate degenerative arthrosis of the medial femorotibial compartment with moderate joint space narrowing RHEUMATOLOGY EVALUATION 03/14/2023 Patient seen and examined - c/o joint pain. Notes today worsening pain in hips, shoulders bilaterally. Feels these are most bothersome on a day to day basis I can hardly raise my arms anymore over the past month. Has been on rosuvastatin/crestor for years notes she was initially on atorvastatin and was switched to rosuvastatin (switched 2 months ago) per patient no subjective improvement in joint pain. No pain/stiffness over hands/feet. No recent joint swelling/redness/warmth, denies prolonged morning stiffness; able to make a fist. 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 Rheumatologic ROS (+) in bold; all rest are negative/denies history of: Chest pain, shortness of breath, history of pleural effusion or pericarditis, oral/nasal ulcers, photosensitivity, rash, history of DVT/PE/ANDor miscarriages, renal disease, seizures, dry eyes, dry mouth, cervical lymphadenopathy or parotid gland swelling, raynaud's phenomenon, alopecia, psoriasis, history of iritis/uveitis or scleritis, nail pitting, dactylitis, history of sacroiliitis or inflammatory bowel disease, arm weakness in raising arms above head, leg weakness in standing up from a seated position, skin tightening, dysphagia, changes in vision, scalp tenderness, jaw claudication, stiffness in shoulders/hip girdle, auricular or nasal chondritis OBJECTIVE 03/14/23 1114 BP: 161/73 BP Site: Left Arm BP Position: Sitting BP Cuff Size: Large Adult Pulse: (!) 59 Weight: (!) 138.7 kg (305 lb 12.8 oz) General: No acute distress. obese Eye: Pupils are equal, round and reactive to light, Extraocular movements are intact, Normal conjunctiva. HENT: Oral mucosa is moist, no oral ulcerations, no areas of alopecia appreciated Neck: Supple, Non-tender. No lymphadenopathy Respiratory: Lungs are clear to auscultation, Respirations are non-labored, Breath sounds are equal. Cardiovascular: Normal rate, Regular rhythm. Gastrointestinal: soft, non-tender, non-distended. Musculoskeletal: no synovitis appreciated; Camilo positive over R shoulder; TTP over trochanteric bursa bilaterally Integumentary: Warm, Dry. Scalp with flakey maculopapular rash, possibly psoriatic in nature; no nail dysplasia Neurologic: Alert, Oriented. Psychiatric: Cooperative. IMPRESSION AND RECOMMENDATIONS Ms. Ximena Odom is a 67 year old female who has a PMHx of former smoker, atrial fibrillation (on AC), HTN, obesity, anxiety/depression, urinary incontinence, HLD, anxiety/depression who presents for rheumatologic evaluation. OUTSIDE RECORDS: 01/31: (-)RF TSH WNL DEXA 06/29: normal lowest T score 0.3 LFN XR L KNEE 03/30: minimal spurring and narrowing of medial femorotibial compartment. Chondrocalcinosis of menisci XR R KNEE 04/28: moderate degenerative arthrosis of the medial femorotibial compartment with moderate joint space narrowing 67 y/o F with medical history as above - pleasant 67 y/o F with medical history as above - outside records as above; current articular complaints, MSK exam c/w mechanical/degenerative etiology. No h/o small joint pain/stiffness, joint swelling - lower clinical suspicion for inflammatory arthritis. Suspect severe OA, rotator cuff pathology. Recommend PT, weight loss; h/o skin psoriasis without signs of inflammatory arthritis to suspect psoriatic arthritis. Recommend dermatology evaluation. Recommendations provided to patient: The lack of hist (more content not included)... [facility] 03-14-2023 Instructions Charlene Villalta MD - 03/14/2023 12:10 PM EST The lack of history of joint pain associated with swelling/redness/warmth, limitations in range of motion/closing your hands to make a fist points against a rheumatologic etiology for your arthritis. I suspect you have osteoarthritis/degenerative joint disease and trochanteric bursitis. Please complete -blood work -x-rays -read over information provided on trochanteric bursitis, at home exercises for hips, knees, shoulders Call [phone] to schedule with -physical therapy -dermatology for evaluation of your scalp rash to ensure this is not psoriasis. For osteoarthritis, I recommend: -physical therapy -occupational therapy -tylenol arthritis strength 650mg tablet every 8 hours as needed (do not exceed 2500-3000mg per 24 hours) Do not use any NSAIDs as you are on a blood thinner for your AFib -topicals such as voltaren gel, capsaicin cream, asper cream (topical lidocaine/menthol), paraffin wax bath, salonpas patches, icy hot, aleve x spray, biofreeze, arnica gel -weight loss -can consider injections in the next visit if clinically appropriate documented in this encounter [facility] 03-14-2023 History of Present illness Narrative Images from the original note were not included. Rheumatology History & Physical Patient name: Ximena Odom Requesting provider: No att. providers found SUBJECTIVE History of Present Illness: Ms. Ximena Odom is a 67 year old female who has a PMHx of former smoker, atrial fibrillation (on AC), HTN, obesity, anxiety/depression, urinary incontinence, HLD, anxiety/depression who presents for rheumatologic evaluation. PSHx: She has no past surgical history on file. Allergies: She has No Known Allergies. Current Meds: amlodipine, eliquis, fluoxetine, lisdexamfetamine, losartan-hydrochlorothiazide, metoprolol tartrate (short acting), oxybutynin er, and rosuvastatin. Family History: she is unsure whether she has any FHx of rheumatologic conditions. Social History: She reports that she quit smoking about 21 years ago. Her smoking use included cigarettes. She has never used smokeless tobacco. OUTSIDE RECORDS: 01/31: (-)RF TSH WNL DEXA 06/29: normal lowest T score 0.3 LFN XR L KNEE 03/30: minimal spurring and narrowing of medial femorotibial compartment. Chondrocalcinosis of menisci XR R KNEE 04/28: moderate degenerative arthrosis of the medial femorotibial compartment with moderate joint space narrowing RHEUMATOLOGY EVALUATION 03/14/2023 Patient seen and examined - c/o joint pain. Notes today worsening pain in hips, shoulders bilaterally. Feels these are most bothersome on a day to day basis I can hardly raise my arms anymore over the past month. Has been on rosuvastatin/crestor for years notes she was initially on atorvastatin and was switched to rosuvastatin (switched 2 months ago) per patient no subjective improvement in joint pain. No pain/stiffness over hands/feet. No recent joint swelling/redness/warmth, denies prolonged morning stiffness; able to make a fist. Notes she feels she has scalp psoriasis - notes Tgel, dandruf shampoo has not been helpful No h/o dactylitis, joint swelling, nail pitting/dysplasia, or IBD. Rheumatologic ROS (+) in bold; all rest are negative/denies history of: Chest pain, shortness of breath, history of pleural effusion or pericarditis, oral/nasal ulcers, photosensitivity, rash, history of DVT/PE/&or miscarriages, renal disease, seizures, dry eyes, dry mouth, cervical lymphadenopathy or parotid gland swelling, raynaud's phenomenon, alopecia, psoriasis, history of iritis/uveitis or scleritis, nail pitting, dactylitis, history of sacroiliitis or inflammatory bowel disease, arm weakness in raising arms above head, leg weakness in standing up from a seated position, skin tightening, dysphagia, changes in vision, scalp tenderness, jaw claudication, stiffness in shoulders/hip girdle, auricular or nasal chondritis OBJECTIVE 03/14/23 1114 BP: 161/73 BP Site: Left Arm BP Position: Sitting BP Cuff Size: Large Adult Pulse: (!) 59 Weight: (!) 138.7 kg (305 lb 12.8 oz) General: No acute distress. obese Eye: Pupils are equal, round and reactive to light, Extraocular movements are intact, Normal conjunctiva. HENT: Oral mucosa is moist, no oral ulcerations, no areas of alopecia appreciated Neck: Supple, Non-tender. No lymphadenopathy Respiratory: Lungs are clear to auscultation, Respirations are non-labored, Breath sounds are equal. Cardiovascular: Normal rate, Regular rhythm. Gastrointestinal: soft, non-tender, non-distended. Musculoskeletal: no synovitis appreciated; Camilo positive over R shoulder; TTP over trochanteric bursa bilaterally Integumentary: Warm, Dry. Scalp with flakey maculopapular rash, possibly psoriatic in nature; no nail dysplasia Neurologic: Alert, Oriented. Psychiatric: Cooperative. IMPRESSION & RECOMMENDATIONS Ms. Ximena Odom is a 67 year old female who has a PMHx of former smoker, atrial fibrillation (on AC), HTN, obesity, anxiety/depression, urinary incontinence, HLD, anxiety/depression who presents for rheumatologic evaluation. OUTSIDE RECORDS: 01/31: (-)RF TSH WNL DEXA 06/29: normal lowest T score 0.3 LFN XR L KNEE 03/30: minimal spurring and narrowing of medial femorotibial compartment. Chondrocalcinosis of menisci XR R KNEE 04/28: moderate degenerative arthrosis of the medial femorotibial compartment with moderate joint space narrowing 67 y/o F with medical history as above - pleasant 67 y/o F with medical history as above - outside records as above; current articular complaints, MSK exam c/w mechanical/degenerative etiology. No h/o small joint pain/stiffness, joint swelling - lower clinical suspicion for inflammatory arthritis. Suspect severe OA, rotator cuff pathology. Recommend PT, weight loss; h/o skin psoriasis without signs of inflammatory arthritis to suspect psoriatic arthritis. Recommend dermatology evaluation. Recommendations provided to patient: The lack of history of joint pain associated with swelling/redness/warmth, limitations in range of motion/closing your hands to make a fist points against a rheumatologic etiology for your arthritis. I suspect you have osteoarthritis/degenerative joint disease and trochanteric bursitis. Please complete -blood work -x-rays -read over information provided on trochanteric bursitis, at home exercises for hips, knees, shoulders Schedule with: -physical therapy -dermatology for evaluation of your scalp rash to ensure this is not psoriasis. For osteoarthritis, I recommend: -physical therapy -occupational therapy -tylenol arthritis strength 650mg tablet every 8 hours as needed (do not exceed 2500-3000mg per 24 hours) Do not use any NSAIDs as you are on a blood thinner for your AFib -topicals such as voltaren gel, capsaicin cream, asper cream (topical lidocaine/menthol), paraffin wax bath, salonpas patches, icy hot, aleve x spray, biofreeze, arnica gel -weight loss -can consider injections in the next visit if clinically appropriate I spent a total of 50 minutes on the date of the service which included preparing to see the patient, [id number] patient care, completing clinical documentation, obtaining and/or reviewing separately obtained history, performing a medically appropriate examination, counseling and educating the patient/family/caregiver, ordering medications, tests, or procedures, communicating results to the patient/family/caregiver and care coordination (not separately reported). Charlene Villalta MD Rheumatology Staff documented in this encounter [facility] Diagnosis Pain in joint, multiple sites- Primary [facility] Diagnostic Procedure Only (Routine) - Closed Specialty Diagnoses / Procedures Referred By Contac t Referred To Contact XR IMAGING Diagnoses Bilateral shoulder pain, unspecified chronicity Trochanteric bursitis of left hip Trochanteric bursitis of right hip History of atrial fibrillation Anticoagulated Pain in joint, multiple sites Rash and nonspecific skin eruption Procedures XR FOOT GENERAL 3V AP/LAT/OBL BILATERAL RADEX FOOT COMPLETE MINIMUM 3 VIEWS Charlene Villalta MD [address] [place] [address] [facility] [place] [address] Referral ID Status Reason Start Date Expiration Date V isits Requested Visits Authorized [id number] Closed Auto-Generate d Referral 03/14/2023 04/12/2024 1 1 * Diagnostic Procedure Only (Routine) - Closed Specialty Diagnoses / Procedures Referred By Jose Rafael t Referred To Contact XR IMAGING Diagnoses Bilateral shoulder pain, unspecified chronicity Trochanteric bursitis of left hip Trochanteric bursitis of right hip History of atrial fibrillation Anticoagulated Pain in joint, multiple sites Rash and nonspecific skin eruption Procedures XR KNEE GENERAL 4V AP BOTH/PA BOTH/LAT/MERC BILATERAL RADIOLOGIC EXAM KNEE COMPLETE 4/MORE VIEWS Charlene Villalta MD [address] [place] [address] [facility] [place] [address] Referral ID Status Reason Start Date Expiration Date V isits Requested Visits Authorized [id number] Closed Auto-Generate d Referral 03/14/2023 04/12/2024 1 1 * Physical Therapy (Routine) - Authorized Specialty Diagnoses / Procedures Referred By Jose Rafael t Referred To Contact [facility] Diagnoses Bilateral shoulder pain, unspecified chronicity Trochanteric bursitis of left hip Trochanteric bursitis of right hip History of atrial fibrillation Anticoagulated Pain in joint, multiple sites Rash and nonspecific skin eruption Procedures CONSULT TO PHYSICAL THERAPY PHYSICAL THERAPY EVALUATION HIGH COMPLEX 45 MINS Charlene Villalta MD [address] [place] [id number] [facility] [place] [address] [place] [address] Referral ID Status Reason Start Date Expiration Date Visits Requested Visits Authorized [id number] Authorized Auto-Generat ed Referral 03/11/2023 03/10/2024 1 1 * Transition of Care (Routine) - Ref Not Required Specialty Diagnoses / Procedures Referred By Jose Rafael t Referred To Contact Dermatology Diagnoses Bilateral shoulder pain, unspecified chronicity Trochanteric bursitis of left hip Trochanteric bursitis of right hip History of atrial fibrillation Anticoagulated Pain in joint, multiple sites Rash and nonspecific skin eruption Procedures CONSULT TO DERMATOLOGY Charlene Villalta MD [address] [place] [address] Referral ID Status Reason Start Date Expiration Date Visits Requested Visits Authorized [id number] Ref Not Required PCP Requested Referral 03/14/2023 03/13/2024 1 1 * Diagnostic Procedure Only (Routine) - Closed Specialty Diagnoses / Procedures Referred By Contac t Referred To Contact XR IMAGING Diagnoses Bilateral shoulder pain, unspecified chronicity Trochanteric bursitis of left hip Trochanteric bursitis of right hip History of atrial fibrillation Anticoagulated Pain in joint, multiple sites Rash and nonspecific skin eruption Procedures XR HAND GENERAL 3V PA/LAT/OBL BILATERAL RADEX HAND MINIMUM 3 VIEWS Charlene Villalta MD [address] [place] [address] [place] [address] Referral ID Status Reason Start Date Expiration Date V isits Requested Visits Authorized [id number] Closed Auto-Generate d Referral 03/14/2023 04/12/2024 1 1 * Diagnostic Procedure Only (Routine) - Closed Specialty Diagnoses / Procedures Referred By Contac t Referred To Contact XR IMAGING Diagnoses Bilateral shoulder pain, unspecified chronicity Trochanteric bursitis of left hip Trochanteric bursitis of right hip History of atrial fibrillation Anticoagulated Pain in joint, multiple sites Rash and nonspecific skin eruption Procedures XR SHOULDER [id number] AP/TRUE AP RIGHT RADEX SHOULDER COMPLETE MINIMUM 2 VIEWS Charlene Villalta MD [address] [place] [phone] [id number] Referral ID Status Reason Start Date Expiration Date V isits Requested Visits Authorized [id number] Closed Auto-Generate d Referral 03/14/2023 04/12/2024 1 1 * Diagnostic Procedure Only (Routine) - Closed Specialty Diagnoses / Procedures Referred By Contac t Referred To Contact XR IMAGING Diagnoses Bilateral shoulder pain, unspecified chronicity Trochanteric bursitis of left hip Trochanteric bursitis of right hip History of atrial fibrillation Anticoagulated Pain in joint, multiple sites Rash and nonspecific skin eruption Procedures XR SHOULDER LIMITED 2V AP/TRUE AP LEFT RADEX SHOULDER COMPLETE MINIMUM 2 VIEWS Charlene Villalta MD [address] [place] [address] Xr Imaging [id number] Referral ID Status Reason Start Date Expiration Date V isits Requested Visits Authorized [id number] Closed Auto-Generate d Referral 03/14/2023 04/12/2024 1 1 * Diagnostic Procedure Only (Routine) - Closed Specialty Diagnoses / Procedures Referred By Contac t Referred To Contact XR IMAGING Diagnoses Bilateral shoulder pain, unspecified chronicity Trochanteric bursitis of left hip Trochanteric bursitis of right hip History of atrial fibrillation Anticoagulated Pain in joint, multiple sites Rash and nonspecific skin eruption Procedures XR HIP GENERAL 3V PELV/AP/LAT RIGHT RADEX HIP UNILATERAL WITH PELVIS 2-3 VIEWS Charlene Villalta MD [address] [place] [phone] [id number] Referral ID Status Reason Start Date Expiration Date V isits Requested Visits Authorized [id number] Closed Auto-Generate d Referral 03/14/2023 04/12/2024 1 1 * Diagnostic Procedure Only (Routine) - Closed Specialty Diagnoses / Procedures Referred By Jose Rafael t Referred To Contact XR IMAGING Diagnoses Bilateral shoulder pain, unspecified chronicity Trochanteric bursitis of left hip Trochanteric bursitis of right hip History of atrial fibrillation Anticoagulated Pain in joint, multiple sites Rash and nonspecific skin eruption Procedures XR HIP GENERAL 3V PELV/AP/LAT LEFT RADEX HIP UNILATERAL WITH PELVIS 2-3 VIEWS Charlene Villalta MD [address] [place] [phone] [facility] [place] [address] Referral ID Status Reason Start Date Expiration Date V isits Requested Visits Authorized [id number] Closed Auto-Generate d Referral 03/14/2023 04/12/2024 1 1 [facility] Summary Purpose Family History No Family History [...] DATE CREATED AUTHOR AUTHOR'S ORGANIZ ATION 09/20/2017 [facility] DATE CREATED AUTHOR AUTHOR'S ORGANIZ ATION 11/01/2017 [facility] DATE CREATED AUTHOR AUTHOR'S ORGANIZ ATION 04/25/2021 [facility] DATE CREATED AUTHOR AUTHOR'S ORGANIZ ATION 04/16/2023 [facility] Source Comments (unrecognize d section and content) In the event this informatio n is protected by the Federal Confidentiality of Alcohol and Drug Abuse Patient Records regulations: The Federal rules restrict any use of the information to criminally investigate or prosecute any alcohol or drug abuse patient.[facility] the event this information is protected by the Federal Confidentiality of Alcohol and Drug Abuse Patient Records regulations: The Federal rules restrict any use of the information to criminally investigate or prosecute any alcohol or drug abuse patient.[facility] Reason for Visit (unrecogniz ed section and content) Care Teams (unrecognized sec tion and content) Vamp Wetter Relationship Specialty Start Date End Date Benjamin Brennan NP [address] [place] [id number] PCP - General Family Medicine 02/05/23 FOR RECORDS PERTAINING TO PATIENTS WHO ARE [...] BE BASED ON THE PRIMARY CLINICAL RECORDS. [employer] provides no warranty or guarantee of the accuracy or completeness of information in this document.
== END | disposition home or self-care (01) ==
PROVIDERS: Referring Provider Internal Medicine Cardiovascular Disease; Visit Provider Internal Medicine Cardiovascular Disease
DX: R00.2 Palpitations (principal); I10 Essential (primary) hypertension
CPT/HCPCS: 93306

== ENCOUNTER → 2023-10-31 | Outpatient (CLI) | payer MEDICARE, SELFPAY ==
[2023-10-31 17:19] LABS: Absolute Lymphocyte Count 3.23 X10^3/uL (0.83-4.51); Absolute Neutrophil Count 6.2 X10^3/uL (2.0-7.7); Basophil# 0.07 X10^3/uL; Basophil% 0.7 % (0-1); Eosinophil# 0.27 X10^3/uL; Eosinophils% 2.6 % (0-5); Hematocrit 40.8 % (37-47); Hemoglobin 13.9 g/dL (12.0-15.0); Lymphocyte # 3.23 X10^3/ul (0.83-4.51); Lymphocyte % 30.8 % (19-41); Mean Corp Hgb Conc 34.1 g/dL (32-36); Mean Corpuscular Hgb 29.6 pg (27.0-32.0); Mean Platelet Vol. 9.4 fl (6.2-12.0); Monocyte# 0.74 X10^3/uL; Monocyte% 7.1 % (0-10); NRBC Flagged by Analyzer 0 % (0-5); Neutrophil # 6.15 X10^3/uL (2.7-7.7); Neutrophil % 58.5 % (47-70); Platelet Count 350 K/mm3 (150-450); RBC Distribution Width CV 12.7 % (11.6-14.6); RBC Distribution Width SD 40.2 fl (35.1-43.9); Red Blood Count 4.69 M/mm3 (4.2-5.4); White Blood Count 10.5 K/mm3 (4.4-11.0)
[2023-10-31 17:38] LABS: Vitamin D,25 Hydroxy 22.6 ng/mL
[2023-10-31 17:50] LABS: AST(SGOT) 21 U/L (15-37); Alanine Aminotransfer ALT/SGPT 22 U/L (13-56); Albumin, Serum 3.9 g/dL (3.2-5.0); Alkaline Phosphatase 83 U/L (45-117); Anion Gap 8 (5-15); BUN 19 mg/dL (7-18); BUN/Creat Ratio 18.4 RATIO (10-20); Calcium,Total 9.6 mg/dL (8.5-10.1); Chloride 101 mmol/L (98-107); Cholesterol 237 mg/dL (200); Creatinine, Serum 1.03 mg/dL (0.55-1.02); EST Glomerular Filtration Rate 57 mL/min (>60); Est Glom Filt Rate - Afr Amer 69 mL/min (>60); Globulin 3.8 g/dL (2.2-4.2); Glucose 103 mg/dL (74-106); High Density Lipoprotein 43 mg/dL; Potassium 3.5 mmol/L (3.5-5.1); Protein, Total 7.7 g/dL (6.4-8.2); Sodium Level 138 mmol/L (136-145); Triglycerides 248 mg/dL; Very Low Density Lipoprotein 50 mg/dL (5-40)
== END | disposition home or self-care (01) ==
LOC: VSLAB 16:33
PROVIDERS: PCP Nurse Practitioner Family; Visit Provider Nurse Practitioner Family
DX: E66.9 Obesity, unspecified (principal); I10 Essential (primary) hypertension; E55.9 Vitamin D deficiency, unspecified
CPT/HCPCS: 36415; 80053; 80061; 82306; 84443; 85025

== ENCOUNTER → 2023-12-17 | Outpatient (CLI) | payer MEDICARE, SELFPAY ==
--- NOTE | 2023-12-17 13:55 | BD_ITS ---
STUDY: DUAL ENERGY X-RAY ABSORPTIOMETRY / DXA REASON FOR EXAM: Female, 67 years old. 733.00OsteoporosisBONE DENSITY REASON FOR EXAM TECHNIQUE: Bone Mineral Density (BMD) measurements of lumbar spine and bilateral hips were obtained. COMPARISON: None. FINDINGS: Lumbar Spine (L1-L4): g/cm2 (1.260) / T-score (1.9) / Z-score (3.8) Findings are suggestive of normal bone density with a low fracture risk. Left Femur Total: g/cm2 (1.160) / T-score (1.8) / Z-score (3.1) Left Femoral Neck: g/cm2 (0.803) / T-score (-0.4) / Z-score (1.2) Right Femur Total: g/cm2 (1.134) / T-score (1.6) / Z-score (2.9) Right Femoral Neck: g/cm2 (0.910) / T-score (0.5) / Z-score (2.) The T-Scores on the most recent prior examination were: Lumbar Spine (L1-L4): There has been improvement of bone density since the previous examination. Left Femur Total: which represents an improvement of 0.7%. Right Femur Total: which represents a worsening of 1.6%. BD/Dexa Bone Density Study IMPRESSION: The patient is considered normal as outlined below according to World Alok Organization (WHO) criteria with a low fracture risk. There has been improvement of bone density since the previous examination. Reference Information: The T-score is the number of standard deviations above or below the standard which is normal for young adults at their peak bone mineral density. The World Health Organization (WHO) interprets the T-scores as follows: Above -1 Normal bone density Between -1 and -2.5 Osteopenia Equal to / or below -2.5 Osteoporosis As a practical clinical guideline, osteopenia may be graded as follows: Mild -1 through -1.5 Moderate -1.6 through -2.0 Severe -2.1 through -2.4 The Z-score is the number of standard deviations above or below age-matched controls. A Z-score of less than -1.5 would be considered abnormal. References: 1. NIH Osteoporosis and Related Bone Diseases www osteo.org 2. International Society for Clinical Densitometry www iscd.org 3. National Osteoporosis Foundation www nof.org Electronically Signed: Cooper Latham MD at 8:43 EDT ,
== END | disposition home or self-care (01) ==
LOC: OPBD 13:45
PROVIDERS: PCP Nurse Practitioner Family; Referring Provider Nurse Practitioner Family; Visit Provider Nurse Practitioner Family
DX: M81.0 Age-related osteoporosis without current pathological fracture (principal)
CPT/HCPCS: 77080

== ENCOUNTER → 2024-02-18 | Outpatient (CLI) | payer MEDICARE, SELFPAY ==
[2024-02-18 16:28] LABS: AST(SGOT) 17 U/L (15-37); Alanine Aminotransfer ALT/SGPT 22 U/L (13-56)
== END | disposition home or self-care (01) ==
PROVIDERS: PCP Nurse Practitioner Family; Referring Provider Podiatrist; Visit Provider Podiatrist
DX: D35.1 Benign neoplasm of parathyroid gland (principal)
CPT/HCPCS: 36415; 84450; 84460

== ENCOUNTER → 2024-06-09 | Outpatient (CLI) | payer MEDICARE, SELFPAY ==
[2024-06-09 17:13] LABS: Absolute Neutrophil Count 6.4 X10^3/uL (2.0-7.7); Basophil# 0.08 X10^3/uL; Basophil% 0.7 % (0-1); Eosinophil# 0.23 X10^3/uL; Eosinophils% 2.1 % (0-5); Hematocrit 42.4 % (37-47); Hemoglobin 14.6 g/dL (12.0-15.0); Lymphocyte % 30.7 % (19-41); Mean Corp Hgb Conc 34.4 g/dL (32-36); Mean Corpuscular Hgb 30.2 pg (27.0-32.0); Mean Corpuscular Volume 87.6 fL (81-99); Monocyte# 0.91 X10^3/uL; Monocyte% 8.2 % (0-10); NRBC Flagged by Analyzer 0 % (0-5); Neutrophil # 6.42 X10^3/uL (2.7-7.7); Platelet Count 305 K/mm3 (150-450); RBC Distribution Width CV 12.6 % (11.6-14.6); RBC Distribution Width SD 40.2 fl (35.1-43.9); Red Blood Count 4.84 M/mm3 (4.2-5.4); White Blood Count 11.1 K/mm3 (4.4-11.0)
[2024-06-09 18:21] LABS: ALB/GLOB Ratio 1.4 RATIO (0.9-2.4); AST(SGOT) 21 U/L (<=31); Alanine Aminotransfer ALT/SGPT 14 U/L (<=34); Albumin, Serum 4.6 g/dL (3.4-4.8); Alkaline Phosphatase 93 U/L (35-104); Anion Gap 14 (5-15); BUN 21 mg/dL (4-19); BUN/Creat Ratio 19.4 RATIO (10-20); Calcium,Total 9.4 mg/dL (7.6-11.0); Chloride 99 mmol/L (98-108); Cholesterol 291 mg/dL (<=200); Creatinine, Serum 1.07 mg/dL (0.70-1.20); EST Glomerular Filtration Rate 57 (>60); Globulin 3.3 g/dL (2.2-4.2); Glucose 101 mg/dL (70-99); High Density Lipoprotein 55 mg/dL; Low Density Lipoprotein Calc. 187 mg/dL; Potassium 3.5 mmol/L (3.3-5.1); Protein, Total 7.9 g/dL (5.9-8.4); Sodium Level 138 mmol/L (133-145); Triglycerides 246 mg/dL; Very Low Density Lipoprotein 49 mg/dL (5-40); Vitamin B12 1001 pg/mL (180-914); Vitamin D,25 Hydroxy 42.2 ng/mL (30-100)
== END | disposition home or self-care (01) ==
LOC: VSLAB 15:56
PROVIDERS: PCP Nurse Practitioner Family; Visit Provider Nurse Practitioner Family
DX: I10 Essential (primary) hypertension (principal); E55.9 Vitamin D deficiency, unspecified; E66.9 Obesity, unspecified; R41.3 Other amnesia
CPT/HCPCS: 36415; 80053; 80061; 82306; 82607; 82746; 84443; 85025

== ENCOUNTER → 2024-08-06 | Outpatient (CLI) | payer MEDICARE, SELFPAY ==
--- NOTE | 2024-08-06 11:43 | RAD_ITS ---
PROCEDURE: CHEST PA AND LATERAL 08/06/2024 REASON FOR EXAM: SOB Wheezing and shortness of breath. TECHNIQUE: Frontal and lateral views of the chest. COMPARISON: None FINDINGS: Hardware: None Heart: Heart size upper limits of normal. Mediastinum: The mediastinal contour is unremarkable. Lungs: The lungs are clear. Bones: Degenerative changes are identified within the thoracic spine. RAD/Chest PA and Lateral IMPRESSION: NO ACUTE FINDINGS. Reading Location: [facility]
[2024-08-06 12:30] LABS: Absolute Lymphocyte Count 2.86 X10^3/uL (0.83-4.51); Absolute Neutrophil Count 6.5 X10^3/uL (2.0-7.7); Basophil% 0.9 % (0-1); Eosinophils% 2.8 % (0-5); Hemoglobin 12.9 g/dL (12.0-15.0); Lymphocyte # 2.86 X10^3/ul (0.83-4.51); Lymphocyte % 26.9 % (19-41); Mean Corp Hgb Conc 33.9 g/dL (32-36); Mean Corpuscular Hgb 29.6 pg (27.0-32.0); Mean Corpuscular Volume 87.2 fL (81-99); Mean Platelet Vol. 9.1 fl (6.2-12.0); Monocyte# 0.79 X10^3/uL; Monocyte% 7.4 % (0-10); NRBC Flagged by Analyzer 0 % (0-5); Neutrophil # 6.54 X10^3/uL (2.7-7.7); Neutrophil % 61.6 % (47-70); Platelet Count 300 K/mm3 (150-450); RBC Distribution Width CV 12.9 % (11.6-14.6); Red Blood Count 4.36 M/mm3 (4.2-5.4); White Blood Count 10.6 K/mm3 (4.4-11.0)
[2024-08-06 12:56] LABS: ALB/GLOB Ratio 1.5 RATIO (0.9-2.4); AST(SGOT) 24 U/L (<=31); Alanine Aminotransfer ALT/SGPT 18 U/L (<=34); Albumin, Serum 4.3 g/dL (3.4-4.8); Alkaline Phosphatase 80 U/L (35-104); Anion Gap 11 (5-15); BUN 16 mg/dL (4-19); BUN/Creat Ratio 21.4 RATIO (10-20); Calcium,Total 9.7 mg/dL (7.6-11.0); Carbon Dioxide 25.7 mmol/L (21.0-32.0); Chloride 101 mmol/L (98-108); Creatinine, Serum 0.73 mg/dL (0.70-1.20); EST Glomerular Filtration Rate 90 (>60); Globulin 2.8 g/dL (2.2-4.2); Glucose 113 mg/dL (70-99); Potassium 4.1 mmol/L (3.3-5.1); Pro- Brain NATRIURETIC PEPTIDE 435 pg/mL (<=900); Protein, Total 7.1 g/dL (5.9-8.4); Sodium Level 138 mmol/L (133-145); Total Bilirubin 0.25 mg/dL (0.00-1.30)
[2024-08-06 15:06] LABS: D-Dimer Quantitative (DVT/PE) 0.86 FEU/ug/m (0.27-0.49)
== END | disposition home or self-care (01) ==
LOC: VSLAB 11:17
PROVIDERS: PCP Nurse Practitioner Family; Visit Provider Nurse Practitioner Family
DX: R06.02 Shortness of breath (principal); I48.0 Paroxysmal atrial fibrillation; R60.0 Localized edema
CPT/HCPCS: 36415; 71046; 80053; 83880; 85025; 85379

== ENCOUNTER → 2024-08-28 | Outpatient (CLI) | payer MEDICARE, SELFPAY ==
--- NOTE | 2024-08-28 09:43 | STEWCON_ITS ---
Reason For Study Reason For Study: Dyspnea Stress Results Protocol: Rachid Protocol WITH DEFINITY Maximum Predicted HR: 153 bpm Target HR: 130 bpm % Maximum Predicted HR: 91 % DurationHeart Rate Stage (mm:ss) (bpm) BP Comment Baseline 80 152/78No Chest Pain; 2 ML Diluted Definity Rachid Protocol Stage I 3:00 114 172/74No Chest Pain; Mild/Moderate Dyspnea Rachid Protocol Stage II 1:40 139 190/72No Chest Pain; Moderate/Severe Dyspnea Recovery 99 136/72No Chest Pain; No Dyspnea Stress Duration: 4:40 mm:ss Maximum Stress HR: 139 bpm METS: 7 Baseline Echocardiogram Findings Stress Echo Wall motion Data Resting WM Intermediate WM Stress WM ECHO/Stress Test Echo W/Contrast Interpretation Summary Stress echo with and without Definity. Resting EKG demonstrates normal sinus rhythm with a rate of 75 bpm resting bloo d pressure is 152/78 mmHg. Patient exercised according to the regular Rachid protocol for total duration of 4 minut es and 40 seconds. The maximum heart rate attained was 139 bpm which was 90% of maximum predicted heart rate the maximum workload was 7 metabolic equivalents. At rest there were no ST ST or T wave changes noted suggest ischemia and at peak e xercise nonspecific ST-T wave changes were noted we did not meet the criteria for ischemia. No clinical angina was no davon. The test was terminated due to shortness of breath. The peak blood pressure was 190/72 mmHg which was a normal blood pressure response to exercise. No arrhythmias were noted. Stress echocardiogram. Stress echocardiogram was performed with Definity enhanc ement. The resting echocardiogram demonstrated preserved ejection fraction of 65% with no wall motion abnormaliti es present. At peak exercise there was thickening of all kent and reduction of low ventricular cavity size peaking at 70% no ischemia was noted no arrhythmias were noted. Conclusion: Stress echocardiogram with no EKG or echocardiographic criteria for ischemia at a moderate workload. No arrhythmias noted. Ordering Physician: Emery Lira Referring Physician: Emery Lira Performed By: Estelita Buenrostro RDCS
== END | disposition home or self-care (01) ==
LOC: CVS 09:40
PROVIDERS: PCP Nurse Practitioner Family; Referring Provider Student in an Organized Health Care Education/Training Program; Visit Provider Student in an Organized Health Care Education/Training Program
DX: R06.02 Shortness of breath (principal)
CPT/HCPCS: 93017; 93350; Q9957; A4216; C8928

== ENCOUNTER → 2024-10-06 | Outpatient (CLI) | payer MEDICARE, SELFPAY ==
[2024-10-06 14:56] LABS: Anion Gap 13 (5-15); BUN 15 mg/dL (4-19); BUN/Creat Ratio 16.3 RATIO (10-20); Calcium,Total 10.0 mg/dL (7.6-11.0); Carbon Dioxide 27.4 mmol/L (21.0-32.0); Chloride 100 mmol/L (98-108); Glucose 105 mg/dL (70-99); Potassium 4.2 mmol/L (3.3-5.1)
[2024-10-06 15:14] LABS: D-Dimer Quantitative (DVT/PE) 1.04 FEU/ug/m (0.27-0.49)
== END | disposition home or self-care (01) ==
LOC: LAB 14:09
PROVIDERS: PCP Nurse Practitioner Family; Referring Provider Student in an Organized Health Care Education/Training Program; Visit Provider Student in an Organized Health Care Education/Training Program
DX: R06.02 Shortness of breath (principal); I10 Essential (primary) hypertension; M79.605 Pain in left leg
CPT/HCPCS: 36415; 80048; 85379

== ENCOUNTER → 2024-10-08 | Outpatient (CLI) | payer MEDICARE, SELFPAY ==
--- NOTE | 2024-10-08 10:11 | VDLE_ITS ---
Reason For Study Reason For Study: Elevated D-dimer RIGHT LEFT CFV is compressible, spontaneous, phasic, competent GSV is normal. and demonstrates normal augmentation. CFV is compressible, spontaneous, phasic, competent, Procedure and demonstrates normal augmentation. This is a venous duplex using B-mode, color flow and FV is compressible, spontaneous, phasic, competent spectral Doppler. and demonstrates normal augmentation. Exam performed in department. POP V is compressible, spontaneous, phasic, competent A preliminary report was called and/or faxed to [facility] and demonstrates normal augmentation. RN. T/P Trunk is compressible. PTV is compressible. LT PerV is compressible. VL/Venous Duplex US, Unilateral Interpretation Summary Deep veins of the left lower extremity are patent and compressible segmentally. There is no evidence of left lower extremity deep vein thrombosis. The left great saphenous vein appears patent an d compressible segmentally. Ordering Physician: Emery Lira Referring Physician: Brook Brennan Performed By: Charu Sparrow RVT
--- NOTE | 2024-10-08 10:35 | RAD_ITS ---
PROCEDURE: KNEE 4 OR MORE VIEWS 10/08/2024 REASON FOR EXAM: KNEE PAIN TECHNIQUE: KNEE 4 OR MORE VIEWS COMPARISON: 03/20/2019 FINDINGS: Severe medial femorotibial joint space narrowing, subchondral sclerosis, osteophytes. No acute bone or soft tissue pathology. RAD/Knee 4 or More Views IMPRESSION: Advanced left knee osteoarthritis. Reading Location: [place] [address]
--- NOTE | 2024-10-08 10:35 | RAD_ITS ---
PROCEDURE: SHOULDER MIN 2 VIEWS 10/08/2024 REASON FOR EXAM: SHOULDER PAIN TECHNIQUE: Four view left shoulder series and four view right shoulder series (combined dictation). COMPARISON: None. RAD/Shoulder min 2 Views IMPRESSION: On the left, mild acromioclavicular joint degenerative changes are seen. Moderate to moderately severe left glenohumeral joint degenerative changes are noted, with partial associated joint narrowing. On the right, moderate acromioclavicular joint degenerative changes are seen. The right glenohumeral joint demonstrates moderately severe degenerative change s, with moderately severe to severe associated joint narrowing. No acute fracture or dislocation is seen. Reading Location: [facility]
--- NOTE | 2024-10-08 10:36 | RAD_ITS ---
PROCEDURE: SHOULDER MIN 2 VIEWS 10/08/2024 REASON FOR EXAM: SHOULDER PAIN TECHNIQUE: Four view left shoulder series and four view right shoulder series (combined dictation). COMPARISON: None. RAD/Shoulder min 2 Views IMPRESSION: On the left, mild acromioclavicular joint degenerative changes are seen. Moderate to moderately severe left glenohumeral joint degenerative changes are noted, with partial associated joint narrowing. On the right, moderate acromioclavicular joint degenerative changes are seen. The right glenohumeral joint demonstrates moderately severe degenerative change s, with moderately severe to severe associated joint narrowing. No acute fracture or dislocation is seen. Reading Location: [facility]
--- NOTE | 2024-10-08 10:36 | RAD_ITS ---
PROCEDURE: KNEE 4 OR MORE VIEWS 10/08/2024 REASON FOR EXAM: KNEE PAIN TECHNIQUE: KNEE 4 OR MORE VIEWS COMPARISON: 03/20/2019 FINDINGS: Severe medial femorotibial joint space narrowing, osteophytes. Severe lateral patellofemoral joint space narrowing, large osteophytes. Varus angulation. No acute bone or soft tissue pathology. RAD/Knee 4 or More Views IMPRESSION: Severe right knee osteoarthritis. [facility]
--- NOTE | 2024-10-08 10:36 | RAD_ITS ---
EXAM: XR Cervical Spine, 6 or More Views CLINICAL INDICATION: NECK PAIN TECHNIQUE: Frontal, lateral, oblique and flexion/extension views of the cervical spine. COMPARISON: No relevant prior studies available. FINDINGS: VERTEBRAE: Degenerative facet arthropathy throughout the cervical spine. Normal alignment. No fracture or significant dynamic instability. DISC SPACES: Degenerative disc disease throughout the cervical spine. SOFT TISSUES: Unremarkable. RAD/Cerv Spine Obl/Flex/Ext Comp IMPRESSION: 1. No fracture or significant dynamic instability. 2. Degenerative changes of the cervical spine as described. Reading Location: [id number]
== END | disposition home or self-care (01) ==
PROVIDERS: PCP Nurse Practitioner Family; Referring Provider Student in an Organized Health Care Education/Training Program; Visit Provider Student in an Organized Health Care Education/Training Program
DX: M79.89 Other specified soft tissue disorders (principal); M79.661 Pain in right lower leg
CPT/HCPCS: 72052; 73030; 73564; 93971

== ENCOUNTER → 2024-11-05 | Outpatient (CLI) | payer MEDICARE, SELFPAY ==
[2024-11-05 12:00] LABS: Anion Gap 12 (5-15); BUN 17 mg/dL (4-19); BUN/Creat Ratio 19.4 RATIO (10-20); Calcium,Total 9.7 mg/dL (7.6-11.0); Carbon Dioxide 27.4 mmol/L (21.0-32.0); Chloride 100 mmol/L (98-108); Glucose 110 mg/dL (70-99); Potassium 4.4 mmol/L (3.3-5.1)
[2024-11-05 12:05] LABS: Cholesterol 150 mg/dL (<=200); Low Density Lipoprotein Calc. 44 mg/dL; Triglycerides 262 mg/dL; Very Low Density Lipoprotein 52 mg/dL (5-40); cholesterol:hdl ratio screen 2.80
[2024-11-05 12:14] LABS: AST(SGOT) 26 U/L (<=31); Alanine Aminotransfer ALT/SGPT 14 U/L (<=34); Albumin, Serum 4.4 g/dL (3.4-4.8); Alkaline Phosphatase 74 U/L (35-104); Bilirubin, Direct < 0.08 mg/dL (0.00-0.30); Globulin 3.0 g/dL (2.2-4.2)
== END | disposition home or self-care (01) ==
LOC: LAB 10:29
PROVIDERS: PCP Nurse Practitioner Family; Referring Provider Student in an Organized Health Care Education/Training Program; Visit Provider Student in an Organized Health Care Education/Training Program
DX: I10 Essential (primary) hypertension (principal); E78.49 Other hyperlipidemia
CPT/HCPCS: 36415; 80048; 80061; 80076

== ENCOUNTER 2024-11-23 10:09 | Day surgery (SDC) | payer MEDICARE, SELFPAY ==
--- NOTE | 2024-11-17 13:04 | PAT.ANESEVAL ---
Pre-Assessment Diagnosis/Proposed Procedure Planned Operative Procedure(s): Injection,Shoulder, RIGHT Anesthesia History Anesthesia History - customer support advisor: Anesthesia History - customer support advisor Hx Hospitalization No 11/17/24 08:54 Any Problems With Anesthesia No 11/17/24 08:54 Cholinesterase deficiency No 11/17/24 08:54 You/Your Family Experience No 11/17/24 08:54 fever (hyperthermia) with Relationship Recent Exposure to Contagious Disease Does patient have nerve No 11/17/24 08:54 stimulator Patient instructed to have device shut off --Does patient have Pacemaker or ICD? When Was Last Pacemaker Check QUESTION #4 FULL TEXT: You/Your Family Experience fever (hyperthermia) with Anesthesia Last Oral Intake Last Oral intake: Last Oral Intake NPO since Meds taken in AM with sips of water? Meds patient instructed to take am of surgery PONV PONV - customer support advisor: PONV - customer support advisor Female Yes 11/17/24 08:54 HX of Motion Sickness No 11/17/24 08:54 HX of N/V After Surgery No 11/17/24 08:54 Non-Smoker Yes 11/17/24 08:54 Duration of Surgery greater No 11/17/24 08:54 than 60 minutes Number of Risk Factors 2 11/17/24 08:54 PONV Score Moderate Risk 11/17/24 08:54 Height & Weight Height & Weight: Anesthesia: Height & Weight Height 5 ft 6 in 10/06/24 13:00 Respiratory Assessment Respiratory Assessment - customer support advisor: Respiratory Tract Infection Hx - customer support advisor Hx Respiratory Tract Infection No 11/17/24 08:54 STOP Sleep Apnea STOP Sleep Apnea - customer support advisor: STOP Sleep Apnea - customer support advisor Hx Hypertension Yes: PER PT, CONTROLLED ON 11/17/24 08:54 MEDS Hx Sleep Apnea Yes 11/17/24 08:54 CPAP Yes 11/17/24 08:54 BIPAP No 11/17/24 08:54 Do you snore loudly (louder than talking or can be heard Do you often feel tired/ fatigued/ sleepy during daytime? Has anyone observed you stop breathing during sleep? STOP Results Positive 11/17/24 08:54 QUESTION #5 FULL TEXT : Do you snore loudly (louder than talking or can be heard through closed doors)? 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 Specify any problems Hx of Preganancy in last 3 No 11/17/24 08:54 Months Nurse Filling Out Transfusion JERAMY 11/17/24 08:54 & Questions: Date: 11/17/24 11/17/24 08:54 Time: 08:57 11/17/24 08:54 Patient unable to answer at this time (ie. confused, unrespo /Reproduction History /Reproductive History - customer support advisor: /Reproductive Hx- customer support advisor Hx Now No 11/17/24 08:54 Gestational Age (in weeks): EDC: Hx Hx Para Hx Section SAB No 11/17/24 08:54 PFS Medical History (Updated 11/17/24 @ 09:05 by Arely Honeycutt) Wears glasses Loose, teeth Wears partial dentures Depression Anxiety Arthritis Urinary incontinence High cholesterol CPAP (continuous positive airway pressure) dependence Sleep apnea Former smoker Leg cramps History of edema Shortness of breath on exertion History of atrial fibrillation History of Holter monitoring History of echocardiogram History of stress test Cardiology follow-up encounter KEV (obstructive sleep apnea) Intermittent palpitations HTN (hypertension) Home Medications ?Medication ?Instructions ?Recorded ?Last Taken ?Type metoprolol tartrate 100 mg tablet 100 mg PO BID 02/11/23 Unknown History oxybutynin chloride 10 mg 10 mg PO DAILY 02/11/23 Unknown History tablet,extended release 24 hr apixaban 5 mg tablet (Eliquis) 5 mg PO BID #60 tabs 03/13/23 Unknown Rx cholecalciferol (vitamin D3) 125 125 mcg PO QDAY 08/25/24 Unknown History mcg (5,000 unit) capsule terbinafine HCl 250 mg tablet 250 mg PO QDAY 08/25/24 Unknown History amlodipine 5 mg tablet 5 mg PO DAILY #90 tabs 10/06/24 Unknown Rx bupropion HCl 150 mg 24 hr tablet, 300 mg PO QDAY 10/06/24 Unknown History extended release evolocumab 140 mg/mL subcutaneous 140 mg subcut Q2W #2 mL 10/06/24 Unknown Rx pen injector (Reptodda Telloick) hydrochlorothiazide 25 mg tablet 50 mg (2 x 25 mg) PO QDAY #180 tabs 10/06/24 Unknown Rx losartan 100 mg tablet 100 mg PO QDAY #90 tabs 10/06/24 Unknown Rx Allergy/AdvReac Type Severity Reaction Status Date / Time rosuvastatin AdvReac Severe myalgias Verified 11/17/24 08:49 [id number] Reductase AdvReac Intermediate intolerant Verified 11/17/24 08:49 Inhibitor Family History Father Heart disease Surgical History History of dilatation and curettage Social History Smoking Status: Former smoker Tobacco: How many years used: 12 alcohol intake: never substance use type: does not use caffeine: Yes Audit: Pertinent Findings Pertinent Findings EKG Perinent findings: March 13, 2023. Sinus rhythm. LVH. Nonspecific T abnormality. Stress test pertinent findings: August 28, 2024. Patient achieved a METS of 7. No EKG or echogenic criteria met for ischemia at a moderate workload. No arrhythmias. Echo (EF%) pertinent findings: August 28, 2024. Resting EF of 65% improved to 70% with stress. April 29, 2023. EF of 65%. PASP is 30 mmHg. No aortic valve stenosis is noted. Consult pertinent findings: October 06, 2024. 1. Shortness of breath-improved since last visit. Last stress echo was negative for ischemia with a preserved EF. Increase HCTZ. 2. Atrial fibrillation-paroxysmal by history. Patient has 16% A-fib on her 48-hour Holter in 2022. Patient has a [id number] score of 3 Continue metoprolol and Eliquis. 3. Hypertension-slightly elevated in office and at home. Patient will continue losartan and metoprolol. Increase her HCTZ. Monitor BPs at home and report back to office. 4. KEV-patient is compliant with her CPAP. 5. Left leg pain?acute-obtain D-dimer and if elevated recommend ultrasound. Additional pertinent findings: Holter monitor. 02/07/2023. Normal sinus rhythm with paroxysmal atrial fibrillation and occasional PACs/ PVCs. Recommendation Anesthesia Recommendation Anesthesia recommendation: OPTIMIZED for anesthesia
[2024-11-23] VITALS (7 sets, daily range): BP systolic 119–161; BP diastolic 59–85; PULSE 60–68; RESP 16–18; TEMP 36.2–36.8; O2SAT 96–100; BMI 51.5
--- NOTE | 2024-11-23 10:22 | PCM.PRE.AN2 ---
ASA Classification* ASA Classification ASA Classification: 3 Assessment & Plan Anesthesia* Anesthesia Assessment Anesthesia Assessment: Discussed sedation and/or anesthesia options, risks, benefits, and alternatives with patient/parents/legal guardian/POA. Questions invited. The patient/parents/legal guardian/POA seems to understand and agrees to proceed with anesthesia plan. Reviewed the physical assessment, medical history, allergy history and patient home medications list prior to surgery/procedure/anesthetic and documented any changes. Performed airway and anesthesia risk assessments. Anesthesia Type Anesthesia Type: MAC Anesthesia Focused Assessment* Airway Assessment Mouth opens: >3 cm Mallampati Score: II Labs Anesthesia Preop lab: CBC WBC 10.6 K/mm3 (4.4-11.0) 08/06/24 11:17 08/06/24 RBC 4.36 M/mm3 (4.2-5.4) 08/06/24 11:17 08/06/24 Hgb 12.9 g/dL (12.0-15.0) 08/06/24 11:17 08/06/24 Hct 38.0 % (37-47) 08/06/24 11:17 08/06/24 Plt Count 300 K/mm3 (150-450) 08/06/24 11:17 08/06/24 CHEMISTRY Potassium 4.4 mmol/L (3.3-5.1) 11/05/24 10:37 11/05/24 Sodium 139 mmol/L (133-145) 11/05/24 10:37 11/05/24 Magnesium 2.6 mg/dL (1.6-2.6) 01/25/23 07:23 01/25/23 BUN 17 mg/dL (4-19) 11/05/24 10:37 11/05/24 Creatinine 0.90 mg/dL (0.70-1.20) 11/05/24 10:37 11/05/24 Glucose 110 mg/dL (70-99) H 11/05/24 10:37 11/05/24 TSH 2.310 uIU/mL (0.300-4.200) 06/09/24 15:57 06/09/24 COAG PT 12.9 SECONDS (11.7-14.9) 02/04/23 15:00 02/04/23 Pre-Assessment Diagnosis/Proposed Procedure Planned Operative Procedure(s): Injection,Shoulder, RIGHT Anesthesia History 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 When Was Last Pacemaker Check QUESTION #4 FULL TEXT: You/Your Family Experience fever (hyperthermia) with Anesthesia Last Oral Intake Last Oral intake: Last Oral Intake NPO since Meds taken in AM with sips of water? Meds patient instructed to take am of surgery PONV PONV - balance bridge inspector: PONV - balance bridge inspector Female Yes 11/17/24 08:54 HX of Motion Sickness No 11/17/24 08:54 HX of N/V After Surgery No 11/17/24 08:54 Non-Smoker Yes 11/17/24 08:54 Duration of Surgery greater No 11/17/24 08:54 than 60 minutes Number of Risk Factors 2 11/17/24 08:54 PONV Score Moderate Risk 11/17/24 08:54 Height & Weight Height & Weight: Anesthesia: Height & Weight Height 5 ft 6 in 10/06/24 13:00 Respiratory Assessment Respiratory Assessment - balance bridge inspector: Respiratory Tract Infection Hx - balance bridge inspector Hx Respiratory Tract Infection No 11/17/24 08:54 STOP Sleep Apnea STOP Sleep Apnea - balance bridge inspector: STOP Sleep Apnea - balance bridge inspector Hx Hypertension Yes: PER PT, CONTROLLED ON 11/17/24 08:54 MEDS Hx Sleep Apnea Yes 11/17/24 08:54 CPAP Yes 11/17/24 08:54 BIPAP No 11/17/24 08:54 Do you snore loudly (louder than talking or can be heard Do you often feel tired/ fatigued/ sleepy during daytime? Has anyone observed you stop breathing during sleep? STOP Results Positive 11/17/24 08:54 QUESTION #5 FULL TEXT : Do you snore loudly (louder than talking or can be heard through closed doors)? 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 Specify any problems Hx of Preganancy in last 3 No 11/17/24 08:54 Months Nurse Filling Out Transfusion MGRIFFITH 11/17/24 08:54 & Questions: Date: 11/17/24 11/17/24 08:54 Time: 08:57 11/17/24 08:54 Patient unable to answer at this time (ie. confused, unrespo /Reproduction History /Reproductive History - balance bridge inspector: /Reproductive Hx- balance bridge inspector Hx Now No 11/17/24 08:54 Gestational Age (in weeks): EDC: Hx Hx Para Hx Section SAB No 11/17/24 08:54 Active Medications Active Medications: Current Medications Generic Name Dose Route Start Last Admin Trade Name Freq PRN Reason Stop Dose Admin Lactated Ringer's 1,000 mls @ 15 mls/hr 11/23/24 10:30 IV .Q48H ISIS PFSH Medical History Wears glasses Loose, teeth Wears partial dentures Depression Anxiety Arthritis Urinary incontinence High cholesterol CPAP (continuous positive airway pressure) dependence Sleep apnea Former smoker Leg cramps History of edema Shortness of breath on exertion History of atrial fibrillation History of Holter monitoring History of echocardiogram History of stress test Cardiology follow-up encounter KEV (obstructive sleep apnea) Intermittent palpitations HTN (hypertension) Home Medications ?Medication ?Instructions ?Recorded ?Last Taken ?Type metoprolol tartrate 100 mg tablet 100 mg PO BID 02/11/23 Unknown History oxybutynin chloride 10 mg 10 mg PO DAILY 02/11/23 Unknown History tablet,extended release 24 hr apixaban 5 mg tablet (Eliquis) 5 mg PO BID #60 tabs 03/13/23 Unknown Rx cholecalciferol (vitamin D3) 125 125 mcg PO QDAY 08/25/24 Unknown History mcg (5,000 unit) capsule terbinafine HCl 250 mg tablet 250 mg PO QDAY 08/25/24 Unknown History amlodipine 5 mg tablet 5 mg PO DAILY #90 tabs 10/06/24 Unknown Rx bupropion HCl 150 mg 24 hr tablet, 300 mg PO QDAY 10/06/24 Unknown History extended release evolocumab 140 mg/mL subcutaneous 140 mg subcut Q2W #2 mL 10/06/24 Unknown Rx pen injector (Randal Chavez) hydrochlorothiazide 25 mg tablet 50 mg (2 x 25 mg) PO QDAY #180 tabs 10/06/24 Unknown Rx losartan 100 mg tablet 100 mg PO QDAY #90 tabs 10/06/24 Unknown Rx Allergy/AdvReac Type Severity Reaction Status Date / Time rosuvastatin AdvReac Severe myalgias Verified 11/17/24 08:49 [id number] Reductase AdvReac Intermediate intolerant Verified 11/17/24 08:49 Inhibitor Family History Father Heart disease Surgical History History of dilatation and curettage Social History Smoking Status: Former smoker Tobacco: How many years used: 12 alcohol intake: never substance use type: does not use caffeine: Yes Review of Systems (Anesthesia) ROS Narrative System reviewed and no additional complaints, except as documented.
[2024-11-23] MEDS: Lactated Ringers 1,000 ML 15 ML IV (10:42)
--- NOTE | 2024-11-23 11:04 | RAD_ITS ---
PROCEDURE: SHOULDER ONE VIEW 11/23/2024 REASON FOR EXAM: SHOULDER INJECTION TECHNIQUE: Fluoro for procedure COMPARISON: None FINDINGS: 1 image, 5 seconds, 1.2 mGy RAD/Shoulder One View IMPRESSION: Fluoro was provided. Reading Location: [facility]
[2024-11-23] MEDS: Lidocaine 1% (5 ml sdv) 5 ML Vial (11:11)
--- NOTE | 2024-11-23 11:18 | PCM.POST.ANE ---
Anesthesia: Postop Eval I Current Vital Signs Temperature: 97.2 F Pulse Rate: 68 Blood Pressure: 119/64 Respiratory Rate: 18 Pulse Ox: 100 Oxygen Delivery Method: Room Air Assessment Airway patent: Yes Spontaneous unlabored respirations: Yes Mental status: Awake and Calm nausea: No Vomiting: No Anesthesia Complication: No Fluid Hydration Crystalloid volume administer (ml): 200 Total IV fluid infused: 200 Progress Note Anesthesia document: Postop Eval 1 completed: Yes
--- NOTE | 2024-11-23 11:18 | PCM.OPRPT ---
Operative Report (Standard) Operative Information Date of Procedure: 11/23/24 Pre-Operative Diagnosis: Osteoarthritis of the right shoulder Post-Operative Diagnosis: Osteoarthritis of the right shoulder Surgery/Procedure Performed: Right shoulder intra-articular steroid injection under fluoroscopic guidance application developer manager: No Type of Anesthesia: Local MAC RN Documented Start/Stop Times: Operation Date: 11/23/24 11:40 Case Time Into Pre-Op 11/23/24 10:15 Anesthesia Start 11/23/24 11:05 Into Room 11/23/24 11:05 Procedure Start 11/23/24 11:10 Procedure End 11/23/24 11:13 Anesthesia End 11/23/24 11:15 Out of Room 11/23/24 11:15 Procedure Start Time: 11:19 Procedure Stop Time: 11:19 Select all DRAINS/GRAFTS/IMPLANTS that apply: None Estimated Blood Loss: 1 Specimen collected: No Description of surgery: PROCEDURE PERFORMED: Right shoulder intraarticular steroid injection under fluoroscopic guidance. ANESTHESIA: MAC. BLOOD LOSS: Minimal. COMPLICATIONS: None. DESCRIPTION OF PROCEDURE: History and physical of today was reviewed. Risks and benefits of the procedure were explained. The patient understood and agreed to proceed. Informed consent was obtained. IV inserted per routine protocol. The patient was taken to the operating room and placed in the supine position. The right shoulder area was prepped and draped in a sterile fashion using iodine x3. Under fluoroscopic guidance on AP view, the right shoulder joint was visualized. The skin and subcutaneous tissue was anesthetized with approximately 3 mL of 1% lidocaine using a 25-gauge regular needle at the anterior shoulder joint area. Under direct visualization with fluoroscopy on AP view, using a 22-gauge 3-1/2-inch spinal needle, the needle was advanced via the skin directed towards the intraarticular position at the supraspinatus level. Once the tip of the needle was at the vicinity of the shoulder joint, after negative aspiration for blood, positive aspiration for serosanguineous synovial fluid, a total of 3 mL of contrast was injected to confirm correct placement of the needle as well as anterior and posterior spread of the contrast at the shoulder joint. Cephalocaudal spread as well was visualized through the arthrogram. After confirmation on AP as well as oblique view and repeated negative aspiration for blood, a total of 4 mL of preservative-free 0.25% Marcaine with 40 mg of Depo-Medrol was injected easily. The needle was then removed intact. The patient experienced no sign or symptoms of intravascular injection. The patient experienced no paresthesia. The procedure was completed without any apparent difficulty or any complications. The patient appeared to tolerate it well. Assessment and plan: This is a 68-year-old female with osteoarthritis of the right shoulder status post right shoulder intra-articular steroid injection under fluoroscopic guidance, patient will continue her current medications, patient will follow-up in approximately 2 weeks for reevaluation. Surgical Findings: 0 Complications Complications: No Admit VTE Documentation VTE Present on Admission: No VTE Mechan Device Prophylaxis: None VTE Pharm Prophylaxis ordered?: No
--- NOTE | 2024-11-23 12:12 | POSTOPAN2_ITS ---
Anesthesia Postop Eval I Sum Postop Eval Completion status Anesthesia document: Postop Eval 1 completed: Yes Anesthesia Postop Eval I Summary Anesthesia Postop Eval I Summary: Anesthesia Postop Eval I: Assessment Summary Airway patent Yes 11/23/24 11:19 ECONOMIC RESEARCH ANALYST.EVELYNOBMiguel Spontaneous unlabored Yes 11/23/24 11:19 ECONOMIC RESEARCH ANALYST.YAKELIN respirations Mental status Awake,Calm 11/23/24 11:19 ECONOMIC RESEARCH ANALYST.YAKELIN nausea No 11/23/24 11:19 ECONOMIC RESEARCH ANALYST.YAKELIN Vomiting No 11/23/24 11:19 ECONOMIC RESEARCH ANALYST.YAKELIN Anesthesia Postop Eval I: Fluid Summary Crystalloid volume administer 200 11/23/24 11:19 ECONOMIC RESEARCH ANALYST.EVELYNOBY (ml) Colloids volume administered ( ml) Blood Product volume administered (ml) Total IV fluid infused 200 11/23/24 11:19 ECONOMIC RESEARCH ANALYST.YAKELIN Anesthesia Postop Eval I: Summary Notes Anesthesia Complication No 11/23/24 11:19 ECONOMIC RESEARCH ANALYST.YAKELIN Anesthesia Complication Comment: Post-operative progress note Anesthesia: Postop Eval II Evaluation Mental status: Awake Pain Level: 2 nausea: No Vomiting: No
--- NOTE | 2024-11-23 12:12 | PCM.POSTANE2 ---
Anesthesia Postop Eval I Sum Postop Eval Completion status Anesthesia document: Postop Eval 1 completed: Yes Anesthesia Postop Eval I Summary Anesthesia Postop Eval I Summary: Anesthesia Postop Eval I: Assessment Summary Airway patent Yes 11/23/24 11:19 BSA/AML COMPLIANCE OFFICER.EVELYNOBMiguel Spontaneous unlabored Yes 11/23/24 11:19 BSA/AML COMPLIANCE OFFICER.YAKELIN respirations Mental status Awake,Calm 11/23/24 11:19 BSA/AML COMPLIANCE OFFICER.YAKELIN nausea No 11/23/24 11:19 BSA/AML COMPLIANCE OFFICER.YAKELIN Vomiting No 11/23/24 11:19 BSA/AML COMPLIANCE OFFICER.YAKELIN Anesthesia Postop Eval I: Fluid Summary Crystalloid volume administer 200 11/23/24 11:19 BSA/AML COMPLIANCE OFFICER.EVELYNOBY (ml) Colloids volume administered ( ml) Blood Product volume administered (ml) Total IV fluid infused 200 11/23/24 11:19 BSA/AML COMPLIANCE OFFICER.YAKELIN Anesthesia Postop Eval I: Summary Notes Anesthesia Complication No 11/23/24 11:19 BSA/AML COMPLIANCE OFFICER.YAKELIN Anesthesia Complication Comment: Post-operative progress note Anesthesia: Postop Eval II Evaluation Mental status: Awake Pain Level: 2 nausea: No Vomiting: No
== END 2024-11-23 12:13 | disposition home or self-care (01) ==
LOC: SDC 10:11 → AC 10:12
PROVIDERS: PCP Nurse Practitioner Family; Referring Provider Anesthesiology Pain Medicine; Visit Provider Anesthesiology Pain Medicine
PROC: 3E0U3GC Introduction of Other Therapeutic Substance into Joints, Percutaneous Approach (ICD-10-PCS; CPT 20610; principal; 2024-11-23 11:35)
DX: M19.011 Primary osteoarthritis, right shoulder (principal)
CPT/HCPCS: 20611; 64490; 73020

== ENCOUNTER → 2024-12-08 | Outpatient (CLI) | payer MEDICARE, SELFPAY ==
--- NOTE | 2024-12-08 16:44 | CT_ITS ---
PROCEDURE: CT CHEST WITH CONTRAST 12/08/2024 REASON FOR EXAM: SOB, ABNORMAL COAGULATION PROFILE TECHNIQUE: Procedure Code: CTCHW Modality: CT Procedure: CHEST WITH CONTRAST Coronal and Sagittal reconstruction series were provided. CONTRAST: Isovue 300 VOLUME: 98 mL One or more dose reduction techniques were used (e.g., Automated exposure control, adjustment of the mA and/or kV according to patient size, use of iterative reconstruction technique). RADIATION DOSE SUMMARY: DLP: 706.47 mGycm COMPARISON: 02/04/2023 FINDINGS: LUNGS/PLEURA: Clear. No airspace consolidation or findings of pulmonary edema. No pneumothorax or pleural effusion. Patent central airways. Fat containing right Bochdalek hernia. MEDIASTINUM: No lymphadenopathy. Benign granulomatous calcifications. HEART: Normal in size. No pericardial effusion. Mild aortic root and coronary artery calcification. No central pulmonary arterial emboli identified. THORACIC AORTA: Normal caliber. No aneurysm or dissection. Mild atherosclerotic disease. UPPER ABDOMEN: No significant abnormality. Multiple splenic calcified granulomas. BONES: Degenerative changes of the spine with DISH, and bilateral glenohumeral arthrosis. CT/Chest WITH Contrast IMPRESSION: No acute intrathoracic abnormality. Clear lungs and pleura. Reading Location: [id number]
== END | disposition home or self-care (01) ==
LOC: CT 16:41
PROVIDERS: PCP Nurse Practitioner Family; Referring Provider Nurse Practitioner Family; Visit Provider Nurse Practitioner Family
DX: R06.02 Shortness of breath (principal); R79.1 Abnormal coagulation profile
CPT/HCPCS: 71260; Q9967

== ENCOUNTER 2025-01-25 08:27 | Day surgery (SDC) | payer MEDICARE, SELFPAY ==
[2025-01-25] MEDS: Lidocaine 1% (5 ml sdv) 5 ML Vial (07:04)
[2025-01-25 09:25] VITALS: BP 166/93; PULSE 66; RESP 16; TEMP 36.1; O2SAT 97; BMI 50.5
--- NOTE | 2025-01-25 09:40 | RAD_ITS ---
PROCEDURE: FLUORO GUIDED NEEDLE PLACEMENT; O.R. FLUORO FOR C-ARM 01/25/2025 REASON FOR EXAM: BILATERAL KNEE INJECTIONS TECHNIQUE: Procedure Code: RADFGN; RADORFL_C_ARM Modality: DX Procedure: FLUORO GUIDED NEEDLE PLACEMENT; O.R. FLUORO FOR C-ARM. Fluoroscopy time: 5.1 seconds. Dose: 0.83 mGy. RAD/Fluoro Guided Needle Placement IMPRESSION: Intraoperative fluoroscopy was performed before right knee joint injection. A solitary fluoroscopic image was obtained. Reading Location: [place] [address]
--- NOTE | 2025-01-25 09:40 | RAD_ITS ---
PROCEDURE: FLUORO GUIDED NEEDLE PLACEMENT 01/25/2025 REASON FOR EXAM: BILATERAL KNEE INJECTIONS TECHNIQUE: Procedure Code: RADFGN Modality: DX Procedure: FLUORO GUIDED NEEDLE PLACEMENT. RAD/Fluoro Guided Needle Placement IMPRESSION: Intraoperative fluoroscopy was performed for left knee injection. A total of 2 spot images were also obtained. Reading Location: [place] [address]
--- NOTE | 2025-01-25 09:40 | RAD_ITS ---
PROCEDURE: FLUORO GUIDED NEEDLE PLACEMENT; O.R. FLUORO FOR C-ARM 01/25/2025 REASON FOR EXAM: BILATERAL KNEE INJECTIONS TECHNIQUE: Procedure Code: RADFGN; RADORFL_C_ARM Modality: DX Procedure: FLUORO GUIDED NEEDLE PLACEMENT; O.R. FLUORO FOR C-ARM. Fluoroscopy time: 5.1 seconds. Dose: 0.83 mGy. RAD/O.R. Fluoro for C-Arm IMPRESSION: Intraoperative fluoroscopy was performed before right knee joint injection. A solitary fluoroscopic image was obtained. Reading Location: [place] [address]
--- NOTE | 2025-01-25 09:54 | OP.PCM_ITS ---
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 BLOOD LOSS: Minimal. COMPLICATIONS: None. DESCRIPTION OF PROCEDURE: History and physical of today was reviewed. Risks and benefits of the procedure were explained. The patient understood and agreed to proceed. Informed consent was obtained. IV inserted per routine protocol. The patient was taken to the operating room and placed in the supine position. The bilateral knee area was prepped and draped in a sterile fashion using iodine x3. Under fluoroscopy guidance on AP view, the bilateral knee joint was visualized. The skin and subcutaneous tissue was anesthetized with approximatel y 3 mL of 1% lidocaine using a 25-gauge regular needle at the medial aspect of the bilateral knee. Under direct visualization with fluoroscopy, on AP view, using a 22-gauge 3-1/2-inch spinal needle, the needle was advanced via the skin. The tip of the needle was maneuvered and directed towards the intraarticular space at the medial compartment of the bilateral knee. Once the tip of the needle was at the vicinity of the knee, after negative aspiration for blood, positive aspiration of the synovial fluid, a total of 1 mL of contrast was injected to confirm correct placement of the needle as well as intraarticular spread medial as well as lateral compartment. After confirmation on AP as well as lateral view and repeated negative aspiration, a total of 5 mL of preservative-free 0.25% Marcaine with 40 mg of Depo-Medrol was injected easily into each joint. The needle was then removed intact. The patient experienced no sign or symptoms of intravascular injection. The patient experienced no paresthesia. The procedure was completed without any apparent difficulty or any complications. The patient appeared to tolerate it well. Assessment and plan: This is a 69-year-old female with osteoarthritis of bilateral knees status post bilateral knee intra-articular steroid injection under fluoroscopic guidance, patient will continue her current medications, patient will follow-up in approximately 2 weeks for reevaluation. Surgical Findings: none Complications Complications: No Admit VTE Documentation VTE Present on Admission: No VTE Mechan Device Prophylaxis: None VTE Pharm Prophylaxis ordered?: No
[2025-01-25 09:59] VITALS: BP 149/69; BP 166/93; PULSE 65; RESP 16; TEMP 36.3; O2SAT 97
== END 2025-01-25 10:10 | disposition home or self-care (01) ==
LOC: SDC 08:29 → AC 08:52
PROVIDERS: PCP Nurse Practitioner Family; Visit Provider Anesthesiology Pain Medicine
DX: M17.0 Bilateral primary osteoarthritis of knee (principal); E78.5 Hyperlipidemia, unspecified; Z79.899 Other long term (current) drug therapy; Z79.01 Long term (current) use of anticoagulants
CPT/HCPCS: 20610; 36415; 76000; 77002; 80061; 80076; A4216

== ENCOUNTER → 2025-01-25 | Outpatient (CLI) | payer MEDICARE, SELFPAY ==
--- OUTSIDE RECORDS SUMMARY | 2025-01-25 09:00 | XMS RPT_ITS | CCD ---
Author Organization [facility] Care Team Providers Care Ed Transporter Name Role Phone HERBER RAMON Unavailable Unavailable ROYAL, JAYMIE S. Unavailable Unavailable [place], Jaymie S Unavailable Unavailable [place], Jaymie S Unavailable Unavailable [place], Jaymie S Unavailable Unavailable [place], Jaymie S Unavailable Unavailable [place], Jaymie S Unavailable Unavailable [place], Jaymie S Unavailable Unavailable [place], Jaymie S Unavailable Unavailable [place], Jaymie S Unavailable Unavailable [place], Jaymie S Unavailable Unavailable [place], Jaymie S Unavailable Unavailable [place], Jaymie S Unavailable Unavailable [place], Jaymie S Unavailable Unavailable [place], Jaymie S Unavailable Unavailable [place], Jaymie S Unavailable Unavailable [place], Jaymie S Unavailable Unavailable [place], Jaymie S Unavailable Unavailable [place], Jaymie S Unavailable Unavailable [place], Jaymie S Unavailable Unavailable [place], Jaymie S Unavailable Unavailable [place], Jaymie S Unavailable Unavailable [place], Jaymie S Unavailable Unavailable [place], Jaymie S Unavailable Unavailable [facility], [facility] Primary Care Pro vider Mika PROMOTIONS MANAGER, PROMOTIONS MANAGER-C Brook Referring Provider Mika PROMOTIONS MANAGER, PROMOTIONS MANAGER-C Brook Other Provider Dr. Mitch Perez Attending Provider Mika PROMOTIONS MANAGER, Brook Primary Care Provider [phone] [facility] Referring Provid er Mika PROMOTIONS MANAGER-CBrook Primary Care Provider Dr. Shahzad Pagan DPM Attending Provider Dr. Shahzad Pagan DPM Referring Provider [phone] Mika PROMOTIONS MANAGER-CBrook Attending Provider Mika PROMOTIONS MANAGER-C, Brook Primary Care Provider Tannhof PROMOTIONS MANAGER-C, Laurel Attending Provider Mika PROMOTIONS MANAGER-C, Brook Referring Provider Demiter PA Emery Attending Provider Demiter PA, Emery Referring Provider Chris MAN, Dr. Meyer Attending Provider Mika PROMOTIONS MANAGER-C, Brook Primary Care Provider NP. Destinee Padilla Other Provider Raven MAN, Dr. Posadas Attending Provider Willem MAN, Dr. Chatman Attending Provider Willem MAN, Dr. Chatman Referring Provider [phone] Mika PROMOTIONS MANAGER-C, Brook Primary Care Physician [phone] Joel Peñalozayler Attending Physician Chris MAN, Dr. Meyer Attending Physician NP. Randy Destinee Nurse Practitioner Raven MAN, Dr. Posadas Attending Physician Willem MAN, Dr. Chatman Attending Physician Tannhof PROMOTIONS MANAGER-C, Laurel Attending Physician Tannhof PROMOTIONS MANAGER-C, Laurel Referring Provider Mika VSC, Brook Primary Care Unavailabl e Tannhof, Laurel Referring Unavailable Tannhof, Laurel Attending Unavailable Mika VSC, Brook Primary Care Unavailabl Compa Martinez Attending Unavailable Imka VSC, Brook Primary Care Unavailabl e RandyDestinee carreon Consulting Unavailable Demiter, Emery Attending Unavailable Demiter, Emery Referring Unavailable Mika VSC, Brook Primary Care Unavailabl e Mitch Perez Attending Unavailable Cuauhtemoc Carbajal Attending Unavailable Mika VSC, Brook Primary Care Unavailabl e Demiter, Emery Referring Unavailable Mika VSC, Brook Primary Care Unavailabl e Mika VSC, Brook Referring Unavailabl e Chris Mitch Attending Unavailable [facility], [facility] Primary Care Unavailabl e [facility], [facility] Referring Unavailabl e Demiter, Emery Attending Unavailable [facility] Primary Care Unavailabl e [facility], [facility] Referring Unavailabl e Demiter, Emery Attending Unavailable [facility], [facility] Unavailabl e Demiter, Emery Attending Unavailable Demiter, Emery Referring Unavailable [facility], [facility] Primary [facility] Unavailabl e Tannhof, Laurel Referring Unavailable Tannhof, Laurel Attending Unavailable [facility], [facility] Unavailabl e Shahzad Pagan Referring Unavailable Shahzad Pagan Attending Unavailable [facility], [facility] Attending Unavailabl e [facility], [facility] Care Unavailabl e [facility], [facility] Care Unavailabl e Tannhof, Laurel Attending Unavailable [facility], [facility] Unavailabl e Compa Bangura Referring Unavailable Compa Bangura Attending Unavailable [facility], [facility] Unavailabl e Demiter, Emery Referring Unavailable Demiter, Emery Attending Unavailable [facility] Unavailabl e Demiter, Emery Attending Unavailable Demiter, Emery Referring Unavailable Allergies Allergy Classification Reported Allergen(s) Allergy Type Date of Onset Reaction(s) Facility (6 sources) rosuvastatin Drug Allergy 5 myalgias [facility] (6 sources) Pmpblcv-Sof-Efk Reductase Inhibitor Propensity to adverse reactions 5 intolerant [facility] (1 source) rosuvastatin Drug Allergy 5 [facility] (1 source) Uwsghfm-Hts-Iud Reductase Inhibitor Drug allergy (disorder) 5 [facility] Medications Current Medications Medication Drug Class(es) Dates Sig (Normalized) Sig (Original) amLODIPine 5 mg oral tablet (20 sources) Dihydropyridine Calcium Channel Alan Start: 10-06-2024 take 1 tablet by mouth once daily Start: 08-25-2024 End: 08-25-2024 take 5 mg by mouth once daily Amlodipine 10 mg tablet Discontinued 5 mg PO DAILY August 25, 2024 1:11pm August 25, 2024 2:00pm Start: 03-13-2023 End: 10-06-2024 take 1 tablet by mouth once daily Amlodipine 10 mg tablet Discontinued 10 mg PO DAILY 90 3 August 31, 2024 1:14pm October 06, 2024 1:43pm Comment on above: Take 1 tablet by shabnam th every afternoon. 24 hr buPROPion hydrochlorid e 150 mg extended release oral tablet (20 sources) Aminoketone Start: 10-06-2024 Start: 10-06-2024 take 1 tablet by shabnam th once daily Bupropion Hcl 150 mg tablet extended release 24 hr Active 150 mg PO daily October 06, 2024 12:00am Start: 08-25-2024 End: 10-06-2024 take 1 tablet by mouth twice daily Bupropion Hcl 100 mg tablet sustained-release 12 hr Discontinued 100 mg PO TWICE A DAY August 25, 2024 12:00am October 06, 2024 1:02pm Start: 02-11-2023 End: 03-13-2023 take 1 tablet by mouth twice daily Bupropion Hcl 100 mg tablet sustained-release 12 hr Discontinued 100 mg PO TWICE A DAY February 11, 2023 1:00am March 13, 2023 11:59am cholecalciferol 0.125 mg oral capsule (9 sources) Vitamin D Start: 08-25-2024 take 1 capsule by mouth once daily 1 ml evolocumab 140 mg/ml auto-injector (1 source) PCSK9 Inhibitor Start: 10-06-2024 Evolocumab (Repatha Sureclick) 140 mg/mL pen injector (6 sources) Start: 10-06-2024 Evolocumab (Repatha Sureclick) 140 mg/mL pen injector Active 140 mg SC every 2 weeks 2 October 06, 2024 12:00am hydroCHLOROthiazide 25 mg oral tablet (7 sources) Thiazide Diuretic Start: 10-06-2024 take 2 tablets by mouth once daily losartan potassium 100 mg oral tablet (7 sources) Angiotensin 2 Receptor Alan Start: 10-06-2024 take 1 tablet by mouth once daily methocarbamol 750 mg oral tablet (3 sources) Muscle Relaxant Start: 04-09-2023 End: 07-08-2023 take 1 tablet by mouth three times daily methocarbamol (ROBAXIN) 750 mg tablet Take 1 tablet by mouth three times a day. 90 tablet 2 04/09/2023 07/08/2023 Active Comment on above: Take 1 tablet by shabnam th three times a day. metoprolol tartrate 100 mg oral tablet (20 sources) beta-Adrenergic Alan Start: 02-04-2023 End: 02-11-2023 take 1 tablet by mouth twice daily Start: 02-04-2023 End: 02-11-2023 Metoprolol Tartrate Disconti nued MG February 04, 2023 12:00am February 11, 2023 9:50am Start: 01-22-2023 take 1 tablet by shabnam th every twelve hours metoprolol tartrate, short acting, (LOPRESSOR) 100 mg tablet Take 1 tablet by mouth every 12 hours. 0 01/22/2023 Active Comment on above: Take 1 tablet by shabnam th every 12 hours. 24 hr oxybutynin chloride 10 mg extended release oral tablet (20 sources) Cholinergic Muscarinic Antagonist Start: 02-11-2023 take 1 tablet by mouth once daily Start: 02-04-2023 End: 02-11-2023 take 1 tablet by mouth every twenty-four hours Oxybutynin Chloride 10 mg tablet extended release 24hr Discontinued mg PO February 04, 2023 1:00am February 11, 2023 10:50am Start: 02-04-2023 End: 02-11-2023 Oxybutynin Chloride Disconti nued MG PO February 04, 2023 12:00am February 11, 2023 9:50am Start: 01-24-2023 take 1 tablet by mouth every h our oxybutynin ER (DITROPAN XL) 10 mg 24 hr tablet Take 1 tablet by mouth every afternoon. 0 01/24/2023 Active Comment on above: Take 1 tablet by shabnam th every afternoon. terbinafine 250 mg oral tablet (9 sources) Allylamine Antifungal Start: 08-25-2024 take 1 tablet by mouth once daily Completed/Discontinued Medications Medication Drug Class(es) Dates Sig (Normalized) Sig (Original) apixaban 5 mg oral tablet (17 sources) Factor Xa Inhibitor Start: 03-13-2023 take 1 tablet by mouth every twelve hours ELIQUIS 5 mg tab(s) Take 1 tablet by mouth every 12 hours. 0 03/13/2023 Active Start: 03-13-2023 take 1 tablet by mouth twice d aily Comment on above: Take 1 tablet by shabnam th every 12 hours. FLUoxetine 20 mg oral capsule (19 sources) Serotonin Reuptake Inhibitor Start: End: take 1 capsule by mouth once daily Fluoxetine 20 mg capsule Discontinued 20 mg PO DAILY February 11, 2023 1:00am August 25, 2024 1:13pm Comment on above: Take 1 tablet by shabnam th every afternoon. hydroCHLOROthiazide 25 mg / losartan potassium 100 mg oral tablet (20 sources) Thiazide Diuretic, Angiotensin 2 Receptor Alan Start: End: Losartan-Hydrochlor othiazide 100-25 mg tablet Discontinued 1 {tbl} PO DAILY February 11, 2023 10:47am October 06, 2024 1:41pm Start: 02-11-2023 take 1 tablet by shabnam th once daily Losartan-Hydrochlorothiazide Active 1 TA BLET PO DAILY February 11, 2023 9:47am Start: 02-04-2023 End: 02-11-2023 Losartan-Hydrochlorothiazide 100-25 mg tablet Discontinued {tbl} February 04, 2023 1:00am February 11, 2023 10:50am Start: 02-04-2023 End: 02-11-2023 Losartan-Hydrochlorothiazide Discontinued TABLET February 04, 2023 12:00am February 11, 2023 9:50am Start: 01-24-2023 take 1 tablet by shabnam th once losartan-hydroCHLOROthiazide (HYZAAR) 10 0-25 mg per tablet Take 1 tablet by mouth every afternoon. 0 01/24/2023 Active Comment on above: Take 1 tablet by shabnam th every afternoon. lisdexamfetamine dimesylate 30 mg oral capsule (4 sources) Central Nervous System Stimulant Start: take 1 capsule by mouth once daily in the morning lisdexamfetamine (VYVANSE) 30 mg capsule Take 30 mg by mouth every morning. 0 03/08/2023 Active Comment on above: Take 30 mg by mouth every morning. Magnesium (20 sources) Start: 024 End: take 1 tablet by mouth once daily as needed Magnesium 250 mg tablet Discontinued 250 mg PO DAILY as needed March 13, 2023 11:59am August 25, 2024 1:15pm Start: 03-13-2023 take 1 tablet by shabnam once daily as needed Magnesium 250 mg tablet Active 250 mg PO DAILY as needed March 13, 2023 11:59am Start: 03-13-2023 take 250 mg by mouth once chula y Magnesium Active 250 MG PO DAILY March 13, 2023 10:59am Start: 02-11-2023 End: 03-13-2023 take 1 tablet by mouth once daily Magnesium 250 mg tablet Discontinued 250 mg PO DAILY February 11, 2023 1:00am March 13, 2023 12:00pm Start: 02-11-2023 End: 03-13-2023 take 250 mg by mouth once daily Magnesium Discontinued 250 MG PO DAILY February 11, 2023 12:00am March 13, 2023 11:00am Start: 02-11-2023 take 250 mg by mouth once chula y Magnesium Active 250 MG PO DAILY February 11, 2023 12:00am meloxicam 15 mg oral tablet (20 sources) Nonsteroidal Anti-inflammatory Drug Start: 02-04-2023 End: 03-13-2023 take 1 tablet by mouth once daily Meloxicam 15 mg tablet Discontinued 15 mg PO DAILY February 11, 2023 10:48am March 13, 2023 11:59am Start: 02-04-2023 End: 02-11-2023 Meloxicam Discontinued MG No vember 2022 12:00am February 11, 2023 9:50am naltrexone hydrochloride 50 mg oral tablet (15 sources) Opioid Antagonist Start: 02-11-2023 End: 03-13-2023 take 1 tablet by mouth twice daily Naltrexone 50 mg tablet Discontinued 25 mg PO TWICE A DAY February 11, 2023 1:00am March 13, 2023 11:59am Start: 02-11-2023 End: 03-13-2023 take 25 mg by mouth twice daily Naltrexone Discontinued 25 MG PO TWICE A DAY February 11, 2023 12:00am March 13, 2023 10:59am rosuvastatin calcium 10 mg oral tablet (20 sources) HMG-CoA Reductase Inhibitor Start: 08-25-2024 End: 10-06-2024 take 5 mg by mouth once daily Rosuvastatin 10 mg tablet Discontinued 5 mg PO DAILY August 25, 2024 1:12pm October 06, 2024 1:21pm Start: 02-04-2023 End: 02-11-2023 Rosuvastatin Discontinued MG February 04, 2023 12:00am February 11, 2023 9:50am Start: 01-22-2023 End: 08-25-2024 take 1 tablet by mouth once daily Rosuvastatin 10 mg tablet Discontinued 10 mg PO DAILY February 11, 2023 10:46am August 25, 2024 1:15pm Comment on above: Take 1 tablet by shabnam th every afternoon. Problems Active Problems Problem Classification Problem Date Documented Da te Episodic/Chronic Cardiac dysrhythmias (20 sources) Atrial fibrillation; Translations: [Unspecified atrial fibrillation] Onset: 10-07-2024 03-13-2023 Chronic Cardiac dysrhythmias (15 sources) Intermittent palpitations; Translations: [Palpitations] 02-11-2023 Episodic Disorders of lipid metabolism (13 sources) Hyperlipidemia; Translations: [Hyperlipidemia, unspecified] Onset: 10-07-2024 10-06-2024 Chronic Essential hypertension (20 sources) Hypertensive disorder; Translations: [Essential (primary) hypertension] Onset: 11-17-2024 02-12-2023 Chronic Comment on above: PER PT, CONTROLLED O N MEDS Genitourinary symptoms and ill-defined conditions (15 sources) Increased frequency of urination; Translations: [Frequency of micturition] 02-12-2023 Episodic Malaise and fatigue (1 source) Malaise and fatigue; Translations: [Other malaise] 05-01-2023 Episodic Osteoarthritis (1 source) Primary osteoarthritis, right shoulder; Translations: [Primary osteoarthritis, right shoulder] Onset: 12-02-2024 Chronic Other aftercare (1 source) Drug therapy finding; Translations: [super[employer] (current) use of anticoagulants] 03-14-2023 Episodic Other circulatory disease (1 source) H/O: atrial fibrillation; Translations: [Personal history of other diseases of the circulatory system] 03-14-2023 Episodic Other connective tissue disease (5 sources) Trochanteric bursitis of left hip; Translations: [Trochanteric bursitis, left hip] Onset: 03-26-2023 03-14-2023 Episodic Other connective tissue disease (5 sources) Trochanteric bursitis of right hip; Translations: [Trochanteric bursitis, right hip] Onset: 03-26-2023 03-14-2023 Episodic Other connective tissue disease (13 sources) Pain in left lower limb; Translations: [Pain in left leg] 10-06-2024 Episodic Other lower respiratory disease (20 sources) Dyspnea; Translations: [Dyspnea, unspecified] 02-12-2023 Episodic Other lower respiratory disease (2 sources) Shortness of breath; Translations: [Shortness of breath] Onset: 08-28-2024 Episodic Other nervous system disorders (1 source) Chronic pain; Translations: [Other chronic pain] 05-01-2023 Chronic Other non-traumatic joint disorders (5 sources) Pain in right shoulder; Translations: [Pain in joint, shoulder region] Onset: 03-26-2023 03-14-2023 Episodic Other non-traumatic joint disorders (7 sources) Multiple joint pain; Translations: [Pain in unspecified joint] Onset: 03-26-2023 03-14-2023 Episodic Other skin disorders (1 source) Eruption; Translations: [Rash and other nonspecific skin eruption] 03-14-2023 Episodic Residual codes; unclassified (20 sources) Obstructive sleep apnea syndrome; Translations: [Obstructive sleep apnea (adult) (pediatric)] 03-13-2023 Chronic Residual codes; unclassified (1 source) Obstructive sleep apnea (adult) (pediatric); Translations: [Obstructive sleep apnea (adult) (pediatric)] Onset: 10-07-2024 Chronic Past or Other Problems Problem Classification Problem Date Documented Da te Episodic/Chronic Other and unspecified benign neoplasm (1 source) Benign neoplasm of parathyroid gland; Translations: [Benign neoplasm of parathyroid gland] Onset: 03-20-2024 Episodic Other connective tissue disease (1 source) Other specified soft tissue disorders; Translations: [Other specified soft tissue disorders] Onset: 10-15-2024 Episodic Other connective tissue disease (1 source) Pain in left leg; Translations: [Pain in left leg] Onset: 10-07-2024 Episodic Other screening for suspected conditions (not mental disorders or infectious disease) (8 sources) D-dimer above reference range; Translations: [Other specified abnormal findings of blood chemistry] Onset: 08-28-2024 10-06-2024 Episodic Results Test Name Value Interpretation Reference Range Facility [facility] 12-31-2024 CNPN Telephone (THORMN) XIMENA PINO ([id number]) 1955 F Date Time Provider Department 12/31/24 [facility] THORACIC SURGERY [place] During your visit today, we recorded the following information about you: Mireya Robbins 01/01/2025 12:05 PM Addendum LOCAL PATIENT Received referral via Fax Ximena Oliveragraves is being referred to Valerie Marrero M.D. by Brook Brennan NP [address] [place] [address]. [id number] # [phone] Patient diagnosis/Reason for consult: Bochdalek Hernia Referral triage process explained: No Patient will receive a call from Thoracic NPM after triage review with surgeon to discuss any additional testing and/or consults that will be scheduled. Pt will then receive a call from our scheduling office for scheduling. Please call pt at [phone]. Patient was informed consultation could be at [place] or [facility] [place]: No Patient Registration: Registration complete/updated: yes Insurance card(s) scanned in [facility] with in the past year: Yes Pt's [employer] is active. Ok to communicate to pt via [employer] yes Medical Records: Records in [facility] (internal CC records): No Imaging in [facility] (internal [facility] records): No Care Everywhere - queried yes, downloaded Yes Linked Outside Organizations (list): OSH Records Received: Yes Uploaded to [facility]: Yes Additional OSH Records Requested: Yes: Date: December 31, 2024 Outside Hospital(s) requested records from: [facility] Records Requested: n/a Radiology Imaging: OSH Radiology Imaging Received: Yes Uploaded: Yes Additional OSH Radiology Imaging Requested: n/a Outside Hospital(s) requested imaging from:n/a Imaging will be received via: tbd Imaging Requested: n/a Pathology Slides; OSH Pathology Slides Received: No OSH Pathology Slides Requested: No Outside Hospital(s) slides requested from: n/a Additional providers added to Care Teams: Yes Additional Notes/Comments: no Enct routed to: Npm's Mireya Goddard 01/01/2025 12:06 PM Addendum Received additional outside medical records from [facility] book marked in epic. # [phone] CT-Chest WITH Contrast IMPORT (12/08/2024) Mireya Robbins Allergies As of Date: 12/31/2024 (No Known Allergies) Date Reviewed: 03/14/2023 Reviewed by: Bertha Maxwell MA - Fully Assessed Reason for Visit: Referral Information [[id number]] Cmt: Prescriptions as of 01/05/2025 - amLODIPine (NORVASC) 10 mg tablet Take 1 tablet by mouth every afternoon. - ELIQUIS 5 mg tab(s) Take 1 tablet by mouth every 12 hours. - FLUoxetine (PROZAC) 20 mg capsule Take 1 tablet by mouth every afternoon. - lisdexamfetamine (VYVANSE) 30 mg capsule Take 30 mg by mouth every morning. - losartan-hydroCHLOROthiazide (HYZAAR) 100-25 mg per tablet Take 1 tablet by mouth every afternoon. - metoprolol tartrate, short acting, (LOPRESSOR) 100 mg tablet Take 1 tablet by mouth every 12 hours. - oxybutynin ER (DITROPAN XL) 10 mg 24 hr tablet Take 1 tablet by mouth every afternoon. - rosuvastatin (CRESTOR) 10 mg tablet Take 1 tablet by mouth every afternoon. Problem List As Of Date 12/31/2024 Noted Resolved Bilateral shoulder pain [M25.511, M25.512] 03/26/2023 Trochanteric bursitis of left hip [M70.62] 03/26/2023 Trochanteric bursitis of right hip [M70.61] 03/26/2023 Pain in joint, multiple sites [M25.50] 03/26/2023 Encounter Status:Closed by SANDIE REILLY on 01/05/25 [facility] 12-23-2024 AYANAN Telephone (Junko TadaFL) XIMENA PINO ([id number]) 1955 F Date Time Provider Department 12/23/24 [facility] THORACIC SURGERY [facility] During your visit today, we recorded the following information about you: Dillon Torres 12/23/2024 11:25 AM Signed RECEIVED CALL FROM: Patient PATIENT INFORMATION: Name: Ximena Pino : 1955 (home) [phone] (cell) Email: [email or web address] Referring Provider: Ref. Provider's office; reach out to BRANDY Barragan Fax: n/a Requested Surgeon: First Available/Unspecified Reason for appointment/diagnosis: Bochdalek hernia Dillon Torres December 23, 2024 11:21 AM Allergies As of Date: 12/23/2024 (No Known Allergies) Date Reviewed: 03/14/2023 Reviewed by: Bertha Maxwell MA - Fully Assessed Reason for Visit: Appointment [[id number]] Prescriptions as of 12/23/2024 - amLODIPine (NORVASC) 10 mg tablet Take 1 tablet by mouth every afternoon. - ELIQUIS 5 mg tab(s) Take 1 tablet by mouth every 12 hours. - FLUoxetine (PROZAC) 20 mg capsule Take 1 tablet by mouth every afternoon. - lisdexamfetamine (VYVANSE) 30 mg capsule Take 30 mg by mouth every morning. - losartan-hydroCHLOROthiazide (HYZAAR) 100-25 mg per tablet Take 1 tablet by mouth every afternoon. - metoprolol tartrate, short acting, (LOPRESSOR) 100 mg tablet Take 1 tablet by mouth every 12 hours. - oxybutynin ER (DITROPAN XL) 10 mg 24 hr tablet Take 1 tablet by mouth every afternoon. - rosuvastatin (CRESTOR) 10 mg tablet Take 1 tablet by mouth every afternoon. Problem List As Of Date 12/23/2024 Noted Resolved Bilateral shoulder pain [M25.511, M25.512] 03/26/2023 Trochanteric bursitis of left hip [M70.62] 03/26/2023 Trochanteric bursitis of right hip [M70.61] 03/26/2023 Pain in joint, multiple sites [M25.50] 03/26/2023 Encounter Status:Closed by DILLON TORRES on 12/23/24 Normal [facility] Chest WITH Contraston 2024 Chest WITH Contrast [facility] Imaging Services [address], [place] [id number] Chest WITH Contrast MR#: [id number] Acct: [id number] Name: XIMENA PINO Rep #: [id number] : 1955 F 68 From: Yasmani Waldrop MD PCP: SIERRA Sandoval, PROMOTIONS MANAGER-C Status: REG CLI Study: Chest WITH Contrast Date of Exam: 12/08/24 Exam# [id number] Ordering Dr: Laurel Newell PROCEDURE: CT CHEST WITH CONTRAST 12/08/2024 REASON FOR EXAM: SOB, ABNORMAL COAGULATION PROFILE TECHNIQUE: Procedure Code: CTCHW Modality: CT Procedure: CHEST WITH CONTRAST Coronal and Sagittal reconstruction series were provided. CONTRAST: Isovue 300 VOLUME: 98 mL One or more dose reduction techniques were used (e.g., Automated exposure control, adjustment of the mA and/or kV according to patient size, use of iterative reconstruction technique). RADIATION DOSE SUMMARY: DLP: 706.47 mGycm COMPARISON: 02/04/2023 FINDINGS: LUNGS/PLEURA: Clear. No airspace consolidation or findings of pulmonary edema. No pneumothorax or pleural effusion. Patent central airways. Fat containing right Bochdalek hernia. MEDIASTINUM: No lymphadenopathy. Benign granulomatous calcifications. HEART: Normal in size. No pericardial effusion. Mild aortic root and coronary artery calcification. No central pulmonary arterial emboli identified. THORACIC AORTA: Normal caliber. No aneurysm or dissection. Mild atherosclerotic disease. UPPER ABDOMEN: No significant abnormality. Multiple splenic calcified granulomas. BONES: Degenerative changes of the spine with DISH, and bilateral glenohumeral arthrosis. CT/Chest WITH Contrast IMPRESSION: No acute intrathoracic abnormality. Clear lungs and pleura. Reading Location: [facility] CC: PANCHITO Newell; [facility] PANCHITO Brennan Data Migration Lead: Signed [facility] MR/POSTOP.ANE 11-23-2024 MR/POSTOP.[facility] Medical Records Department [address] [place] [address] Anesthesia Postop Eval I 11/23/24 1118 MR#: [id number] Acct: [id number] Name: XIMENA PINO Rep #: [id number] : 1955 68 From: Marina Campos CRNA PCP: SIERRA Sandoval, PANCHITO Status:REG [facility] [place] Race: C Location: [place] [address] Anesthesia: Postop Eval I Current Vital Signs Temperature: 97.2 F Pulse Rate: 68 Blood Pressure: 119/64 Respiratory Rate: 18 Pulse Ox: 100 Oxygen Delivery Method: Room Air Assessment Airway patent: Yes Spontaneous unlabored respirations: Yes Mental status: Awake and Calm nausea: No Vomiting: No Anesthesia Complication: No Fluid Hydration Crystalloid volume administer (ml): 200 Total IV fluid infused: 200 Progress Note Anesthesia document: Postop Eval 1 completed: Yes 11/23/24 1119 Date Marina Campos BRIM STIFFENER Cosigner Signature: Date CC: Signed [facility] MR/NCSUGQZL4ds 11-23-2024 MR/POSTOPAN2 [facility] Medical Records Department [address] [place] [address] Anesthesia Postop Eval II 11/23/24 1212 MR#: [id number] Acct: [id number] Name: XIMENA PINO Rep #: [id number] : 1955 68 From: Choco Cheung MD PCP: Brook Brennan [facility], PROMOTIONS MANAGER-C Status:DEP [facility] [place] Race: C [place] [facility] [place]esthesia Postop Eval I Sum Postop Eval Completion status Anesthesia document: Postop Eval 1 completed: Yes Anesthesia Postop Eval I Summary Anesthesia Postop Eval I Summary: Anesthesia Postop Eval I: Assessment Summary Airway patent Yes 11/23/24 11:19 BRIM STIFFENER.SKOBY Spontaneous unlabored Yes 11/23/24 11:19 BRIM STIFFENER.SKOBY respirations Mental status Awake,Calm 11/23/24 11:19 BRIM STIFFENER.SKOBY nausea No 11/23/24 11:19 BRIM STIFFENER.SKOBY Vomiting No 11/23/24 11:19 BRIM STIFFENER.SKOBY Anesthesia Postop Eval I: Fluid Summary Crystalloid volume administer 200 11/23/24 11:19 BRIM STIFFENER.SKOBY (ml) Colloids volume administered ( ml) Blood Product volume administered (ml) Total IV fluid infused 200 11/23/24 11:19 BRIM STIFFENER.SKOBY Anesthesia Postop Eval I: Summary Notes Anesthesia Complication No 11/23/24 11:19 BRIM STIFFENER.SKOBY Anesthesia Complication Comment: Post-operative progress note Anesthesia: Postop Eval II Evaluation Mental status: Awake Pain Level: 2 nausea: No Vomiting: No 11/23/24 1212 Date Choco Cheung MD Cosigner Signature: Date CC: Signed Normal [facility] Operative Reporton 5 Operative Report [facility] Medical Records Department [address] [place] [address] Operative Report 11/23/24 1118 MR#: [id number] Acct: [id number] Name: XIMENA PINO Rep #: [id number] : 1955 68 From: Compa Bangura MD PCP: SIERRA Sandoval, PROMOTIONS MANAGER-C Status:REG [facility] Location: [place] [address] Operative Report (Standard) Operative Information Date of Procedure: 11/23/24 Pre-Operative Diagnosis: Osteoarthritis of the right shoulder Post-Operative Diagnosis: Osteoarthritis of the right shoulder Surgery/Procedure Performed: Right shoulder intra-articular steroid injection under fluoroscopic guidance ballet teacher: No Type of Anesthesia: Local MAC RN Documented Start/Stop Times: Operation Date: 11/23/24 11:40 Case Time Into Pre-Op 11/23/24 10:15 Anesthesia Start 11/23/24 11:05 Into Room 11/23/24 11:05 Procedure Start 11/23/24 11:10 Procedure End 11/23/24 11:13 Anesthesia End 11/23/24 11:15 Out of Room 11/23/24 11:15 Procedure Start Time: 11:19 Procedure Stop Time: 11:19 Select all DRAINS/GRAFTS/IMPLANTS that apply: None Estimated Blood Loss: 1 Specimen collected: No Description of surgery: PROCEDURE PERFORMED: Right shoulder intraarticular steroid injection under fluoroscopic guidance. ANESTHESIA: MAC. BLOOD LOSS: Minimal. COMPLICATIONS: None. DESCRIPTION OF PROCEDURE: History and physical of today was reviewed. Risks and benefits of the procedure were explained. The patient understood and agreed to proceed. Informed consent was obtained. IV inserted per routine protocol. The patient was taken to the operating room and placed in the supine position. The right shoulder area was prepped and draped in a sterile fashion using iodine x3. Under fluoroscopic guidance on AP view, the right shoulder joint was visualized. The skin and subcutaneous tissue was anesthetized with approximately 3 mL of 1% lidocaine using a 25- gauge regular needle at the anterior shoulder joint area. Under direct visualization with fluoroscopy on AP view, using a 22-gauge 3-1/2-inch spinal needle, the needle was advanced via the skin directed towards the intraarticular position at the supraspinatus level. Once the tip of the needle was at the vicinity of the shoulder joint, after negative aspiration for blood, positive aspiration for serosanguineous synovial fluid, a total of 3 mL of contrast was injected to confirm correct placement of the needle as well as anterior and posterior spread of the contrast at the shoulder joint. Cephalocaudal spread as well was visualized through the arthrogram. After confirmation on AP as well as oblique view and repeated negative aspiration for blood, a total of 4 mL of preservative-free 0.25% Marcaine with 40 mg of Depo-Medrol was injected easily. The needle was then removed intact. The patient experienced no sign or symptoms of intravascular injection. The patient experienced no paresthesia. The procedure was completed without any apparent difficulty or any complications. The patient appeared to tolerate it well. Assessment and plan: This is a 68-year-old female with osteoarthritis of the right shoulder status post right shoulder intra-articular steroid injection under fluoroscopic guidance, patient will continue her current medications, patient will follow-up in approximately 2 weeks for reevaluation. Surgical Findings: 0 Complications Complications: No Admit VTE Documentation VTE Present on Admission: No VTE Mechan Device Prophylaxis: None VTE Pharm Prophylaxis ordered?: No 11/23/24 1122 Cosigner Signature (if applicable): CC: SIERRA PROMOTIONS MANAGER-Lou Brennan; Dr. Compa Bangura MD Signed Normal [facility] Shoulder One Viewon 11-24-19 Shoulder One View [facility] Imaging Services [address] [place] [id number] Shoulder One View MR#: [id number] Acct: [id number] Name: XIMENA PINO Rep #: [id number] : 1955 F 68 From: Abe Cruz MD PCP: SIERRA Sandoval, PROMOTIONS MANAGER-C Status: [facility] Study: Shoulder One View Date of Exam: 11/23/24 Exam# [id number] Ordering Dr: Compa Bangura MD PROCEDURE: SHOULDER ONE VIEW 11/23/2024 REASON FOR EXAM: SHOULDER INJECTION TECHNIQUE: Fluoro for procedure COMPARISON: None FINDINGS: 1 image, 5 seconds, 1.2 mGy RAD/Shoulder One View IMPRESSION: Fluoro was provided. Reading Location: [facility] CC: SIERRA PROMOTIONS MANAGER-Lou Brennan; Dr. 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 When Was Last Pacemaker Check QUESTION #4 FULL TEXT: You/Your Family Experience fever (hyperthermia) with Anesthesia Last Oral Intake Last Oral intake: Last Oral Intake NPO since Meds taken in AM with sips of water? Meds patient instructed to take am of surgery PONV PONV - pattern chain maker supervisor: PONV - pattern chain maker supervisor Female Yes 11/17/24 08:54 HX of Motion Sickness No 11/17/24 08:54 HX of N/V After Surgery No 11/17/24 08:54 Non-Smoker Yes 11/17/24 08:54 Duration of Surgery greater No 11/17/24 08:54 than 60 minutes Number of Risk Factors 2 11/17/24 08:54 PONV Score Moderate Risk 11/17/24 08:54 Height Weight Height Weight: Anesthesia: Height Weight Height 5 ft 6 in 10/06/24 13:00 Respiratory Assessment Respiratory Assessment - pattern chain maker supervisor: Respiratory Tract Infection Hx - pattern chain maker supervisor Hx Respiratory Tract Infection No 11/17/24 08:54 STOP Sleep Apnea STOP Sleep Apnea - pattern chain maker supervisor: STOP Sleep Apnea - pattern chain maker supervisor Hx Hypertension Yes: PER PT, CONTROLLED ON 11/17/24 08:54 MEDS Hx Sleep Apnea Yes 11/17/24 08:54 CPAP Yes 11/17/24 08:54 BIPAP No 11/17/24 08:54 Do you snore loudly (louder than talking or can be heard Do you often feel tired/ fatigued/ sleepy during daytime? Has anyone observed you stop breathing during sleep? STOP Results Positive 11/17/24 08:54 QUESTION #5 FULL TEXT : Do you snore loudly (louder than talking or can be heard through closed doors)? 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 Specify any problems Hx of Preganancy in last 3 No 11/17/24 08:54 Months Nurse Filling Out Transfusion JERAMY 11/17/24 08:54 Questions: Date: 11/17/24 11/17/24 08:54 Time: 08:57 11/17/24 08:54 Patient unable to answer at this time (ie. confused, unrespo /Reproduction History /Reproductive History - pattern chain maker supervisor: /Reproductive Hx- pattern chain maker supervisor Hx Now No 11/17/24 08:54 Gestational Age (in weeks): EDC: Hx Hx Para Hx Section SAB No 11/17/24 08:54 PFSH Medical History (Updated 11/17/24 @ 09:05 by Arely Honeycutt) Wears glasses Loose, teeth Wears partial dentures Depression Anxiety Arthritis Urinary incontinence High cholesterol CPAP (continuous positive airway pressure) dependence Sleep apnea Former smoker Leg cramps History of edema Shortness of breath on exertion History of atrial fibrillation History of Holter monitoring History of echocardiogram History of stress test Cardiology follow-up encounter KEV (obstructive sleep apnea) Intermittent palpitations HTN (hypertension) Home Medications ???Medication ???Instructions ???Recorded ???Last Taken ???Type metoprolol tartrate 100 mg tablet 100 mg PO BID 02/11/23 Unknown Hi story oxybutynin chloride 10 mg 10 mg PO DAILY 02/11/23 Unknown Hi story tablet,extended release 24 hr apixaban 5 mg tablet (Eliquis) 5 mg PO BID #60 tabs 03/13/23 Unkn own Rx (more content not included)... Normal [facility] Anion gap in Serum or Plasma Ordered By: Emery Lira on 11-05-2024 Anion gap [Moles/Vol] 12 mmol/L 07-23 [facility] BUN/creatinine ratioOrdered By: Emery Lira on 11-05-2024 Urea nitrogen/Creatinine [Mass ratio] 19.4 mg/mg 12-28 [facility] Basic Metabolic Profile (BMP )on 11-05-2024 BUN/CRE 19.4 RATIO Normal 12-28 [facility] Comment on above: Performed By: #### L 500.2500 ####[facility] [address] [place], [place], [id number] GAP 12 Normal 07-23 [facility] Comment on above: Performed By: #### L 500.2500 ####[facility] [address] [place], [place], [phone] Potassium [Moles/Vol] 4.4 mmol/L Normal 3.3-5.1 [facility] Comment on above: Result Comment: Hemo lysis present, Results??could be affected. ?? Performed By: #### L 500.2500 ####[facility] [address] [place], [place], [id number] Bilirubin directOrdered By: Emery Lira on 11-05-2024 Bilirubin.direct [Mass/Vol] mg/dL 0.00-0.30 [facility] Comment on above: Hemolysis present, R esults could be affected. Bilirubin, totalOrdered By: Emery Lira on 11-05-2024 Bilirubin [Mass/Vol] 0.40 mg/dL 0.00-1.30 [facility] Calculated very low density lipoprotein (VLDL) cholesterol measurementOrdered By: Emery Lira on 11-05-2024 Calculated very low density lipoprotein (VLDL) cholesterol measurement 52 mg/dL High 5-40 [facility] Carbon dioxide, total [Moles /volume] in Central venous bloodOrdered By: Emery Lira on 11-05-2024 CO2 [Moles/Vol] 27.4 mmol/L Normal 21.0-32.0 [facility] Comment on above: Performed By: #### L 500.2500 ####[facility] [address] [place], [address] Chloride assayOrdered By: Joel Lira on 11-05-2024 Chloride [Moles/Vol] 100 mmol/L Normal 98-108 [facility] Comment on above: Performed By: #### L 500.2500 ####[facility] [address] [place], [address] Glomerular filtration rate ( GFR) estimation/1.73 sq m using serum, plasma, or whole bOrdered By: Emery Lira on 11-05-2024 GFR/1.73 sq M.predicted among non-blacks MDRD (S/P/Bld) [Vol rate/Area] 70 mL/min/{1.73_m2} Normal >60 [facility] Comment on above: mL/min/1.73m2 CKD-EP I Creatinine Equation (2020) Result Comment: mL/m in/1.73m2 CKD-EPI Creatinine Equation (2020) Performed By: #### L 500.2500 ####[facility] [address] [place], [address] LDL calc ser/plasOrdered By: Emery Lira on 11-05-2024 Cholesterol in LDL [Mass/Vol] 44 mg/dL [facility] Comment on above: Ulrhsmkfwg=593-061 m g/dL & Higher Eaaa=119 mg/dL or greaterFriedwald Equation for LDL-C Laboratory - Chemistry and C hemistry - challengeOrdered By: Emery Lira on 11-05-2024 AST [Catalytic activity/Vol] 26 U/L <32 [facility] Comment on above: Hemolysis present, R esults could be affected. Lipid Profileon 11-05-2024 CHOL:HDL 2.80 Normal [facility] Comment on above: Performed By: #### L 500.4100, L500.3400 #### [facility] [address] [place], [address] Cholesterol [Mass/Vol] 150 mg/dL Normal <=200 [facility] Comment on above: Result Comment: Chol esterol level, Desirable <200 mg/dL Borderline high cholesterol 200-239 mg/dL High cholesterol >=240 mg/dL Recommendations of the NCEP Adult Treatment Panel for the following risk-cutoff thresholds for the [place] population. Performed By: #### L 500.4100, L500.3400 #### [facility] [address] [place], [address] Cholesterol in HDL [Mass/Vol] 54 mg/dL Normal [facility] Comment on above: Result Comment: Cathie onal Cholesterol Education Program (NCEP) guidelines: <40 mg/dL: Low HDL-cholesterol (major risk factor for CHD) >= 60 mg/dL: High HDL-cholesterol (negative risk factor for CHD) HDL-cholesterol is affected by a number of factors, e.g. smoking, exercise, hormones, sex and age. Performed By: #### L 500.4100, L500.3400 #### [facility] [address] [place], [address] Cholesterol in LDL [Mass/Vol] 44 mg/dL Normal [facility] Comment on above: Result Comment: Bord cnkdjw=035-359 mg/dL Higher Olxa=455 mg/dL or greater Friedwald Equation for LDL-C Performed By: #### L 500.4100, L500.3400 #### [facility] [address] [place], [address] Cholesterol in VLDL [Mass/Vol] 52 mg/dL High 5-40 [facility] Comment on above: Performed By: #### L 500.4100, L500.3400 #### [facility] [address] [place], [address] Triglyceride [Mass/Vol] 262 mg/dL High [facility] Comment on above: Result Comment: The drugs N-Acetylcysteine and Metamizole may falsely depress this assay. Normal range: <150 mg/dL Borderline High: 150-199 mg/dL High: 200-499 mg/dL Very High: >500 mg/dL Performed By: #### L 500.4100, L500.3400 #### [facility] [address] [place], [address] Liver Profileon 11-05-2024 Albumin [Mass/Vol] 4.4 g/dL Normal 3.4-4.8 [facility] Comment on above: Performed By: #### L 500.4100, L500.3400 #### [facility] [address] [place], [address] ALK PHOS 74 U/L Normal 35-104 [facility] Comment on above: Performed By: #### L 500.4100, L500.3400 #### [facility] [address] [place], [address] ALT [Catalytic activity/Vol] 14 U/L Normal <=34 [facility] Comment on above: Performed By: #### L 500.4100, L500.3400 #### [facility] [address] [place], [address] AST [Catalytic activity/Vol] 26 U/L Normal <=31 [facility] Comment on above: Result Comment: Hemo lysis present, Results??could be affected. ?? Performed By: #### L 500.4100, L500.3400 #### [facility] [address] [place], [address] Bilirubin [Mass/Vol] 0.40 mg/dL Normal 0.00-1.30 [facility] Comment on above: Performed By: #### L 500.4100, L500.3400 #### [facility] [address] [place], [address] D BILI < 0.08 Normal 0.00-0.30 [facility] Comment on above: Result Comment: Hemo lysis present, Results??could be affected. ?? Performed By: #### L 500.4100, L500.3400 #### [facility] [address] [place], [address] Globulin (S) [Mass/Vol] 3.0 g/dL Normal 2.2-4.2 [facility] Comment on above: Performed By: #### L 500.4100, L500.3400 #### [facility] [address] [place], [address] T PROT 7.4 g/dL Normal 5.9-8.4 [facility] Comment on above: Performed By: #### L 500.4100, L500.3400 #### [facility] [address] [place], [address] Potassium measurement (mass/ volume)Ordered By: Emery Lira on 11-05-2024 Potassium (Unsp spec) [Mass/Vol] 4.4 mmol/L 3.3-5.1 [facility] Comment on above: Hemolysis present, R esults could be affected. Screening total cholesterol/ high density lipoprotein (HDL) cholesterol ratioOrdered By: Emery Lira on 11-05-2024 Cholesterol.total/Cho lesterol in HDL [Mass ratio] 2.80 {ratio} [facility] Serum creatinine measurement (mass/volume)Ordered By: Emery Lira on 11-05-2024 Creatinine [Mass/Vol] 0.90 mg/dL Normal 0.70-1.20 [facility] Comment on above: Performed By: #### L 500.2500 ####[facility] [address] [place], [place], [id number] Serum globulin measurementOr dered By: Emery Lira on 11-05-2024 Globulin (S) [Mass/Vol] 3.0 g/dL 2.2-4.2 [facility] Serum glucose measurement (m ass/volume)Ordered By: Emery Lira on 11-05-2024 Glucose [Mass/Vol] 110 mg/dL High 70-99 [facility] Comment on above: Performed By: #### L 500.2500 ####[facility] [address] [place], [address] Serum or plasma alanine christian otransferase (ALT) measurementOrdered By: Emery Lira on 11-05-2024 ALT [Catalytic activity/Vol] 14 U/L <35 [facility] Serum or plasma albumin spencer urement (mass/volume)Ordered By: Emery Lira on 11-05-2024 Albumin [Mass/Vol] 4.4 g/dL 3.4-4.8 [facility] Serum or plasma alkaline vladimir sphatase measurementOrdered By: Emery Lira on 11-05-2024 ALP [Catalytic activity/Vol] 74 U/L 35-104 [facility] Serum or plasma calcium spencer urement (mass/volume)Ordered By: Emery Lira on 11-05-2024 Calcium [Mass/Vol] 9.7 mg/dL Normal 7.6-11.0 [facility] Comment on above: Performed By: #### L 500.2500 ####[facility] [address] [place], [place], [phone] Serum or plasma cholesterol in HDL measurement (mass/volume)Ordered By: Emery Lira on 11-05-2024 Cholesterol in HDL [Mass/Vol] 54 mg/dL >40 [facility] Comment on above: National Cholesterol Education Program (NCEP) guidelines:<40 mg/dL: Low HDL-cholesterol (major risk factor for CHD)>= 60 mg/dL: High HDL-cholesterol (negative risk factor for CHD)HDL-cholesterol is affected by a number of factors, e.g. smoking, exercise, hormones, sex and age. Serum or plasma cholesterol measurement (mass/volume)Ordered By: Emery Lira on 11-05-2024 Cholesterol [Mass/Vol] 150 mg/dL <201 [facility] Comment on above: Cholesterol level, D esirable <200 mg/dLBorderline high cholesterol 200-239 mg/dLHigh cholesterol >=240 mg/dLRecommendations of the NCEP Adult Treatment Panel for the following risk-cutoff thresholds for the [place] population. Serum or plasma urea nitroge n measurement (mass/volume)Ordered By: Emery Lira on 11-05-2024 Urea nitrogen [Mass/Vol] 17 mg/dL Normal 4-19 [facility] Comment on above: Performed By: #### L 500.2500 ####[facility] [address] [place], [place], [address] Sodium levelOrdered By: Trevor Lira on 11-05-2024 Sodium [Moles/Vol] 139 mmol/L Normal 133-145 [facility] Comment on above: Performed By: #### L 500.2500 ####[facility] [address] [place], [address] Total proteinOrdered By: Ousmane Lira on 11-05-2024 Protein [Mass/Vol] 7.4 g/dL 5.9-8.4 [facility] Triglycerides measurementOrd ered By: Emery Lira on 11-05-2024 Triglyceride [Mass/Vol] 262 mg/dL High <199 [facility] Comment on above: The drugs N-Acetylcy steine and Metamizole may falsely depress this assay. Normal range: <150 mg/dLBorderline High: 150-199 mg/dLHigh: 200-499 mg/dLVery High: >500 mg/dL Office Visit Reporton 2024 Office Visit Report [facility] [address] [place] [address] OFFICE VISIT Date of Service: 10/21/24 MR#: [id number] Acct: [id number] Patient: XIMENA PINO Rep #: [id number] : 1955 Provider: Dr. Mitch Perez MD Age/Sex: 68/F Location: [facility] Status: Signed with Addenda ADDENDUM by STEPAN Hsu on 10/30/24 at 1626 Assessment Plan (1) HTN (hypertension): QUALIFIERS: Hypertension type: primary hypertension Qualified Code(s): I10 - Essential (primary) hypertension PLAN: BP controlled at 114/72. Recommend patient continue current medications. 10/30/24 1626 Date Emery Lira cc: C PROMOTIONS MANAGER-C Brook Brennan * Signed Intake Vital Signs 10/06/24 13:00 10/21/24 11:09 Height 5 ft 6 in Weight: 315 lb 315 lb BMI 50.8 BP 133/79 H 114/72 Blood Pressure Location Lt radial Lt brachial Position Sitting Sitting Respiration 18 18 Pulse 58 L 62 Pulse Source Monitor Monitor Pulse Oximetry (%) 94 Oxygen Delivery Method room air Intake Visit Reasons: Blood pressure check Explosives Worker Required: No Allergies rosuvastatin Adverse Reaction (Severe, Verified 10/21/24 11:14) myalgias Eavyoxu-SNJ-TnS Reductase Inhibitor Adverse Reaction (Intermediate, Verified 10/21/24 11:14) intolerant Medications ???Medication ???Instructions ???Recorded ???Confirmed ???Type metoprolol tartrate 100 mg tablet 100 mg PO BID 02/11/23 10/21/24 H istory oxybutynin chloride 10 mg 10 mg PO DAILY 02/11/23 10/21/24 H istory tablet,extended release 24 hr apixaban 5 mg tablet (Eliquis) 5 mg PO BID #60 tabs 03/13/2310/09 Rx cholecalciferol (vitamin D3) 125 125 mcg PO QDAY 08/25/24 10/21/24 History mcg (5,000 unit) capsule terbinafine HCl 250 mg tablet 250 mg PO QDAY 08/25/24 10/21/24 H istory amlodipine 5 mg tablet 5 mg PO DAILY #90 tabs 10/06/24 Rx bupropion HCl 150 mg 24 hr tablet, 150 mg PO QDAY 10/06/24 10/21/24 History extended release evolocumab 140 mg/mL subcutaneous 140 mg subcut Q2W #2 mL 10/06/24 10/21/24 Rx pen injector (Randal Chavez) hydrochlorothiazide 25 mg tablet 50 mg (2 x 25 mg) PO QDAY #180 tab s 10/06/24 10/21/24 Rx losartan 100 mg tablet 100 mg PO QDAY #90 tabs 10/06/24 0 10/21/24 Rx Have you fallen in the past year?: No Nurse's Note: BP 114/72 P 62. Denies chest pain or heart palpitations. States edema is gone. Continues with SOB with activity. SpO2 95% RA. Weight stable at 315. No distress noted at visit. Clinical Quality Measures Falls Risk Screening/Assistive Devices Have you fallen in the past year?: No 10/22/24 0734 Date Mitch Harper Signature: Date (if applicable) CC: TALYAC PROMOTIONS MANAGER-C Brook Brennan [facility] Cerv Spine Obl/Flex/Ext Comp on 10-08-2024 [facility] Spine Obl/Flex/Ext Comp [facility] Imaging Services [address] [place] [address] Cerv Spine Obl/Flex/Ext Comp MR#: [id number] Acct: [id number] Name: XIMENA PINO Rep #: [id number] : 1955 F 68 From: Corby Falcon MD PCP: Brook Brennan, SIERRA, PROMOTIONS MANAGER-C Status: REG CLI Study: Cerv Spine Obl/Flex/Ext Comp Date of Exam: Exam# [id number] Ordering Dr: Destniee Padilla EXAM: XR Cervical Spine, 6 or More Views CLINICAL INDICATION: NECK PAIN TECHNIQUE: Frontal, lateral, oblique and flexion/extension views of the cervical spine. COMPARISON: No relevant prior studies available. FINDINGS: VERTEBRAE: Degenerative facet arthropathy throughout the cervical spine. Normal alignment. No fracture or significant dynamic instability. DISC SPACES: Degenerative disc disease throughout the cervical spine. SOFT TISSUES: Unremarkable. RAD/Cerv Spine Obl/Flex/Ext Comp IMPRESSION: 1. No fracture or significant dynamic instability. 2. Degenerative changes of the cervical spine as described. Reading Location: [id number] CC: [facility] PROMOTIONS MANAGER-C Brook Brennan; Destinee Padilla Data Migration Lead: Signed Normal [facility] Knee 4 or More Viewson 10-08 Knee 4 or More Views [facility] Imaging Services [address] [place] [address]291 Knee 4 or More Views MR#: [id number] Acct: [id number] Name: XIMENA PINO Rep #: [id number] : 1955 F 68 From: Phani Carver MD PCP: Brook Brennan Lou, PROMOTIONS MANAGER-C Status: REG CLI Study: Knee 4 or More Views Date of Exam: 10/08/24 Exam# [id number] Ordering Dr: Destinee Padilla PROCEDURE: KNEE 4 OR MORE VIEWS 10/08/2024 REASON FOR EXAM: KNEE PAIN TECHNIQUE: KNEE 4 OR MORE VIEWS COMPARISON: 03/20/2019 FINDINGS: Severe medial femorotibial joint space narrowing, osteophytes. Severe lateral patellofemoral joint space narrowing, large osteophytes. Varus angulation. No acute bone or soft tissue pathology. RAD/Knee 4 or More Views IMPRESSION: Severe right knee osteoarthritis. Reading Location: [place] [address] CC: [facility] PROMOTIONS MANAGER-C Brook Brennan; Destinee Padilla Data Migration Lead: Signed Normal [facility] Knee 4 or More Views [facility] Imaging Services [address], [place] [address] Knee 4 or More Views MR#: [id number] Acct: [id number] Name: XIMENA PINO Rep #: [id number] : 1955 F 68 From: Phani Carver MD PCP: SIERRA Sandoval, PROMOTIONS MANAGER-C Status: REG CLI Study: Knee 4 or More Views Date of Exam: 10/08/24 Exam# [id number] Ordering Dr: Destinee Padilla PROCEDURE: KNEE 4 OR MORE VIEWS 10/08/2024 REASON FOR EXAM: KNEE PAIN TECHNIQUE: KNEE 4 OR MORE VIEWS COMPARISON: 03/20/2019 FINDINGS: Severe medial femorotibial joint space narrowing, subchondral sclerosis, osteophytes. No acute bone or soft tissue pathology. RAD/Knee 4 or More Views IMPRESSION: Advanced left knee osteoarthritis. Reading Location: [facility] CC: [facility] PROMOTIONS MANAGER-C Brook Brennan; Destinee Padilla Data Migration Lead: Signed Normal [facility] Shoulder min 2 Viewson 10-08 Shoulder min 2 Views [facility] Imaging Services [address], [place] [address] Shoulder min 2 Views MR#: [id number] Acct: [id number] Name: XIMENA PINO Rep #: [id number] : 1955 F 68 From: Gonzales Burrell PCP: SIERRA Sandoval, PROMOTIONS MANAGER-C Status: REG CLI Study: Shoulder min 2 Views Date of Exam: 10/08/24 Exam# [id number] Ordering Dr: Destinee Padilla PROCEDURE: SHOULDER MIN 2 VIEWS 10/08/2024 REASON FOR EXAM: SHOULDER PAIN TECHNIQUE: Four view left shoulder series and four view right shoulder series (combined dictation). COMPARISON: None. RAD/Shoulder min 2 Views IMPRESSION: On the left, mild acromioclavicular joint degenerative changes are seen. Moderate to moderately severe left glenohumeral joint degenerative changes are noted, with partial associated joint narrowing. On the right, moderate acromioclavicular joint degenerative changes are seen. The right glenohumeral joint demonstrates moderately severe degenerative changes, with moderately severe to severe associated joint narrowing. No acute fracture or dislocation is seen. Reading Location: [place] [address] CC: Lou Brennan; Destinee Padilla Data Migration Lead: Signed Normal [facility] Shoulder min 2 Views [facility] Imaging Services [address] [place] [address] Shoulder min 2 Views MR#: [id number] Acct: [id number] Name: XIMENA PINO Rep #: [id number] : 1955 68 From: Gonzales Burrell PCP: SIERRA Sandoval, PANCHITO Status: REG CLI Study: Shoulder min 2 Views Date of Exam: 10/08/24 Exam# [id number] Ordering Dr: Destinee Padilla PROCEDURE: SHOULDER MIN 2 VIEWS 10/08/2024 REASON FOR EXAM: SHOULDER PAIN TECHNIQUE: Four view left shoulder series and four view right shoulder series (combined dictation). COMPARISON: None. RAD/Shoulder min 2 Views IMPRESSION: On the left, mild acromioclavicular joint degenerative changes are seen. Moderate to moderately severe left glenohumeral joint degenerative changes are noted, with partial associated joint narrowing. On the right, moderate acromioclavicular joint degenerative changes are seen. The right glenohumeral joint demonstrates moderately severe degenerative changes, with moderately severe to severe associated joint narrowing. No acute fracture or dislocation is seen. Reading Location: [place] [address] CC: SIERRA Padilla Data Migration Lead: Signed Normal [facility] Venous Duplex US, Unilateral on 10-08-2024 Venous Duplex US, Unilateral [facility] Cardiovascular Services [address] [facility] [place] [address] Venous Duplex US, Unilateral 10/08/24 1017 MR#: [id number] Acct: [id number] Name: XIMENA PINO Rep #: [id number] : 1955 68 From: Cuauhtemoc Carbajal MD Attending Dr: STEPAN Hsu Status: REG CL I Ordering Dr: Emery Lira Date: 10/08/24 Location: [facility] Sex: F C Admitted: Reason For Study Reason For Study: Elevated D-dimer RIGHT LEFT CFV is compressible, spontaneous, phasic, competent GSV is normal. and demonstrates normal augmentation. CFV is compressible, spontaneous, phasic, competent, Procedure and demonstrates normal augmentation. This is a venous duplex using B-mode, color flow and FV is compressible, spontaneous, phasic, competent spectral Doppler. and demonstrates normal augmentation. Exam performed in department. POP V is compressible, spontaneous, phasic, competent A preliminary report was called and/or faxed to [facility] and demonstrates normal augmentation. RN. T/P Trunk is compressible. PTV is compressible. LT PerV is compressible. VL/Venous Duplex US, Unilateral Interpretation Summary Deep veins of the left lower extremity are patent and compressible segmentally. There is no evidence of left lower extremity deep vein thrombosis. The left great saphenous vein appears patent and compressible segmentally. Ordering Physician: Emery Lira Referring Physician: Brook Brennan Performed By: Charu Sparrow RVT 10/08/24 1507 Date Cuauhtemoc Carbajal MD CC: [facility] PROMOTIONS MANAGER-C Brook Brennan; STEPAN Hsu Date Dictated: 10/08/24 1017 Date Transcribed: 10/08/24 1507 Data Migration Lead: Signed Normal [facility] Venous duplex ultrasound rep ortOrdered By: Cuauhtemoc Carbajal on 10-08-2024 US Vein [facility] Cardiovascular Services [address] [place] [address] Venous Duplex US, Unilateral 10/08/24 1017 MR#: [id number] Acct: [id number] Name: XIMENA PINO Rep #:[id number] : 1955 68 From: Cuauhtemoc Burrell Attending Dr: STEPAN Hsu atus: REG CLI Ordering Dr: Emery Lira Date: 10/08/24 Location: [facility] Sex: F C Admitted: Reason For Study Reason For Study: Elevated D-dimer RIGHT LEFT CFV is compressible, spontaneous, phasic, competent GSV is normal. and demonstrates normal augmentation. CFV is compressible, spontaneous, phasic, competent, Procedure and demonstrates normal augmentation. This is a venous duplex using B-mode, color flow and FV is compressible, spontaneous, phasic, competent spectral Doppler. and demonstrates normal augmentation. Exam performed in department. POP V is compressible, spontaneous, phasic, competent A preliminary report was called and/or faxed to [facility] and demonstrates normal augmentation. RN. T/P Trunk is compressible. PTV is compressible. LT PerV is compressible. VL/Venous Duplex US, Unilateral Interpretation Summary Deep veins of the left lower extremity are patent and compressible segmentally. There is no evidence of left lower extremity deep vein thrombosis. The left great saphenous vein appears patent andcompressible segmentally. Ordering Physician: Emery Lira Referring Physician: Brook Brennan Performed By: Charu Sparrow RVT 10/08/24 1507 Date _ Cuauhtemoc Carbajal MD CC: [facility] PANCHITO Brennan; STEPAN Hsu ~ Date Dictated: 10/08/24 1017 Date Transcribed: 10/08/241506 Data Migration Lead: Signed [facility] Work Phone: Anion gap in Serum or Plasma Ordered By: Emery Lira on 10-06-2024 Anion gap [Moles/Vol] 13 mmol/L - [facility] BUN/creatinine ratioOrdered By: Emery Lira on 10-06-2024 Urea nitrogen/Creatinine [Mass ratio] 16.3 mg/mg - [facility] Basic Metabolic Profile (BMP )on 10-06-2024 BUN/CRE 16.3 RATIO Normal - [facility] Comment on above: Performed By: #### L 500.2500, L300.8000 ####[facility] [address] [place], [address] Calcium [Mass/Vol] 10.0 mg/dL Normal 7.6-11.0 [facility] Comment on above: Performed By: #### L 500.2500, L300.8000 ####[facility] [address] [place], [address] Chloride [Moles/Vol] 100 mmol/L Normal 98-108 [facility] Comment on above: Performed By: #### L 500.2500, L300.8000 ####[facility] [address] [place], [address] CO2 [Moles/Vol] 27.4 mmol/L Normal 21.0-32.0 [facility] Comment on above: Performed By: #### L 500.2500, L300.8000 ####[facility] [address] [place], [address] Creatinine [Mass/Vol] 0.91 mg/dL Normal 0.70-1.20 [facility] Comment on above: Performed By: #### L 500.2500, L300.8000 ####[facility] [address] [place], [address] GAP 13 Normal 5-15 [facility] Comment on above: Performed By: #### L 500.2500, L300.8000 ####[facility] [address] [place], [address] GFR/1.73 sq M.predicted among non-blacks MDRD (S/P/Bld) [Vol rate/Area] 69 mL/min/{1.73_m2} Normal >60 [facility] Comment on above: Result Comment: mL/m in/1.73m2 CKD-EPI Creatinine Equation (2020) Performed By: #### L 500.2500, L300.8000 ####[facility] [address] [place], [address] Glucose [Mass/Vol] 105 mg/dL High 70-99 [facility] Comment on above: Performed By: #### L 500.2500, L300.8000 ####[facility] [address] [place], [address] Potassium [Moles/Vol] 4.2 mmol/L Normal 3.3-5.1 [facility] Comment on above: Performed By: #### L 500.2500, L300.8000 ####[facility] [address] [place], [address] Sodium [Moles/Vol] 140 mmol/L Normal 133-145 [facility] Comment on above: Performed By: #### L 500.2500, L300.8000 ####[facility] [address] [place], [address] Urea nitrogen [Mass/Vol] 15 mg/dL Normal 4-19 [facility] Comment on above: Performed By: #### L 500.2500, L300.8000 ####[facility] [address] [place], [place], [address] Carbon dioxide, total [Moles /volume] in Central venous bloodOrdered By: Emery Lira on 10-06-2024 CO2 [Moles/Vol] 27.4 mmol/L 21.0-32.0 [facility] Cardiology Visit Reporton Cardiology Visit Report [facility] [place] [facility] [address] [place], [place] [address] OFFICE VISIT Date of Service: 10/06/24 MR#: [id number] Acct: [id number] Name: XIMENA PINO Rep #: [id number] : 1955 Provider: STEPAN Hsu Age/Sex: 68/F Location: [facility] Status: Signed HPI HPI History of Present Illness Details: Ximena Pino is a 68-year-old female who presents to office today for follow-up for monitoring her cardiovascular health. Patient has a history of hypertension. She presented to the emergency department in January 2023 with shortness of breath. Workup demonstrated normal hemoglobin, elevated D-dimer and normal troponin. Her BNP was increased at 433. CT scan of her chest demonstrated no evidence of pulmonary embolism. Patient was discharged from hospital. Patient underwent pharmacological myocardial perfusion stress test that demonstrated no evidence of ischemia. Patient underwent evaluation with a 48-hour Holter monitor in January 2023 and this demonstrated 16% paroxysmal atrial fibrillation. Patient was initiated on anticoagulation. Her echocardiogram in April 2023 demonstrated preserved ejection fraction at 65% with mildly enlarged left atrium and normal right atrium and no significant valve disease. Patient was seen 08/25/2024 and expressed concerns of dyspnea on exertion. At that time, a stress echocardiogram was ordered and completed 08/28/2024 and this was negative for ischemia. Upon presentation today, patient reports she has seen improvement in her dyspnea on exertion. She reports she has not been in atrial fibrillation for quite some time now. Her fatigue is better as she does not find herself needing to take naps now. Her LE edema remains about the same, improves with elevation. She has considered compression stockings but is unable to place them on her own legs. She has sleep apnea and is compliant with her CPAP every night. She reports muscle aches. Further ROS below. Intake Vital Signs 08/25/24 07:11 10/06/24 13:00 Height 5 ft 6 in 5 ft 6 in Weight: 318 lb 315 lb BMI 51.3 50.8 BP 162/98 H 133/79 H Blood Pressure Location Lt brachial Lt radial Position Sitting Sitting Respiration 18 18 Pulse 68 58 L Pulse Source Monitor Monitor Pulse Oximetry (%) 94 94 Oxygen Delivery Method room air Intake Visit Reasons: 6 WK FU Explosives Worker Required: No Accompanied by: Self Is patient in pain?: No Allergies No Known Allergies Allergy (Verified 10/06/24 13:00) Medications ???Medication ???Instructions ???Recorded ???Confirmed ???Type metoprolol tartrate 100 mg tablet 100 mg PO BID 02/11/23 10/06/24 H istory oxybutynin chloride 10 mg 10 mg PO DAILY 02/11/23 10/06/24 H istory tablet,extended release 24 hr apixaban 5 mg tablet (Eliquis) 5 mg PO BID #60 tabs 03/13/2309/09 Rx cholecalciferol (vitamin D3) 125 125 mcg PO QDAY 08/25/24 10/06/24 History mcg (5,000 unit) capsule terbinafine HCl 250 mg tablet 250 mg PO QDAY 08/25/24 10/06/24 H istory amlodipine 5 mg tablet 5 mg PO DAILY #90 tabs 10/06/24 Rx bupropion HCl 150 mg 24 hr tablet, 150 mg PO QDAY 10/06/24 10/06/24 History extended release evolocumab 140 mg/mL subcutaneous 140 mg subcut Q2W #2 mL 10/06/24 10/06/24 Rx pen injector (Randal Chavez) hydrochlorothiazide 25 mg tablet 50 mg (2 x 25 mg) PO QDAY #180 tab s 10/06/24 10/06/24 Rx losartan 100 mg tablet 100 mg PO QDAY #90 tabs 10/06/24 0 10/06/24 Rx Have you fallen in the past year?: No PFSH Medical History KEV (obstructive sleep apnea) Intermittent palpitations HTN (hypertension) Surgical History History of dilatation and curettage Family History Father Heart disease Social History Smoking Status: Former smoker Tobacco: How many years used: 12 alcohol intake: never substance use type: does not use caffeine: Yes ROS Const Const: Negative for fatigue or weakness ENT ENT: Negative for dizziness or balance problems Cardio Chest Pain: No Palpitations: No Edema: Bilateral Muscle aches with walking: None Resp Respiratory: Positive for SOB with activity; Negative for SOB at rest or SOB orthopnea SOB lying down GI GI: Negative nausea, vomiting or heartburn Musc Musc: Positive for muscle aches/ myalgia; Negative for muscle weakness or balance problems Neuro Neuro: Negative for dizziness, lightheadedness, near syncope, syncope or weakness Endo Endo: Negative for fatigue Cardiology Exam Const Appearance: cooperative, comfortable, no acute distress and well developed; Ne (more content not included)... Normal [facility] Chloride assayOrdered By: Joel Lira on 10-06-2024 Chloride [Moles/Vol] 100 mmol/L 98-108 [facility] D-Dimer Quantitative (DVT/PE )on 10-06-2024 D-DIMER QUANT 1.04 FEU/ug/m Invalid Interpretation Code 0.27-0.49 [facility] Comment on above: Result Comment: D-Di yuval ELEVATED (>0.49): Additional studies and clinical assessments are indicated to conclude diagnosis of: Deep Vein Thrombosis (DVT) or Pulmonary Embolism (PE) CRITICAL VALUE CALLED TO STEVAN AUGUSTIN 10/06/24 1510 Sandie Rothman. RESULTS READ BACK BY SAME. Performed By: #### L 500.2500, L300.8000 ####[facility] [address] [place], [place], [id number] Glomerular filtration rate ( GFR) estimation/1.73 sq m using serum, plasma, or whole bOrdered By: Emery Lira on 10-06-2024 GFR/1.73 sq M.predicted among non-blacks MDRD (S/P/Bld) [Vol rate/Area] 69 mL/min/{1.73_m2} >60 [facility] Comment on above: mL/min/1.73m2 CKD-EP I Creatinine Equation (2020) Potassium measurement (mass/ volume)Ordered By: Emery Lira on 10-06-2024 Potassium (Unsp spec) [Mass/Vol] 4.2 mmol/L 3.3-5.1 [facility] Serum creatinine measurement (mass/volume)Ordered By: Emery Lira on 10-06-2024 Creatinine [Mass/Vol] 0.91 mg/dL 0.70-1.20 [facility] Serum glucose measurement (m ass/volume)Ordered By: Emery Lira on 10-06-2024 Glucose [Mass/Vol] 105 mg/dL High 70-99 [facility] Serum or plasma calcium spencer urement (mass/volume)Ordered By: Emery Lira on 10-06-2024 Calcium [Mass/Vol] 10.0 mg/dL 7.6-11.0 [facility] Serum or plasma urea nitroge n measurement (mass/volume)Ordered By: Emery Lira on 10-06-2024 Urea nitrogen [Mass/Vol] 15 mg/dL 4-19 [facility] Sodium levelOrdered By: Trevor Lira on 10-06-2024 Sodium [Moles/Vol] 140 mmol/L 133-145 [facility] Stress echocardiogram study reportOrdered By: Mitch Perez on 08-31-2024 Stress cardiac echo study report [facility] [address] [place] [address] Stress Test Echo W/Contrast MR#: [id number] Acct: [id number] Name: XIMENA PINO Rep #: [id number] : 1955 68 From: Mitch Perez MD Primary Care: SIERRA Sandoval, PROMOTIONS MANAGER-C Status: REG CLI Ordering Dr: Emery Lira Sex: F C Reason For Study Reason For Study: Dyspnea Stress Results Protocol: Rachid Protocol WITH DEFINITY Maximum Predicted HR: 153 bpm Target HR: 130 bpm % Maximum Predicted HR: 91 % DurationHeart Rate Stage (mm:ss) (bpm) BP Comment Baseline 80 152/78No Chest Pain; 2ML Diluted Definity Rachid Protocol Stage I 3:00 114 172/74No Chest Pain; Mild/Moderate Dyspnea Rachid Protocol Stage II 1:40 139 190/72No Chest Pain; Moderate/Severe Dyspnea Recovery 99 136/72No Chest Pain; No Dyspnea Stress Duration: 4:40 mm:ss Maximum Stress HR: 139 bpm METS:7 Baseline Echocardiogram Findings Stress Echo Wall motion Data Resting WM Intermediate WM Stress WM ECHO/Stress Test Echo W/Contrast Interpretation Summary Stress echo with and without Definity. Resting EKG demonstrates normal sinus rhythm with a rate of 75 bpm resting bloodpressure is 152/78 mmHg. Patient exercised according to the regular Rachid protocol for total duration of 4 minutes and 40 seconds. The maximum heart rate attained was 139 bpm which was 90% of maximum predicted heart rate the maximum workload was 7 metabolic equivalents. At rest there were no ST ST or T wave changes noted suggest ischemia and at peak exercise nonspecific ST-T wave changes were noted we did not meet the criteria for ischemia. No clinical angina was noted. The test was terminated due to shortness of breath. The peak blood pressure was 190/72 mmHg which was a normal blood pressure response to exercise. No arrhythmias were noted. Stress echocardiogram. Stress echocardiogram was performed with Definity enhancement. The resting echocardiogram demonstrated preserved ejection fraction of 65% with no wall motion abnormalities present. At peak exercise there was thickening of all kent and reduction of low ventricular cavity size peaking at 70% no ischemia was noted no arrhythmias were noted. Conclusion: Stress echocardiogram with no EKG or echocardiographic criteria for ischemia at a moderate workload. No arrhythmias noted. Ordering Physician: Emery Lira Referring Physician: Emery Lira Performed By: Estelita Buenrostro, RDCARI 08/31/24 1524 Date _ Mitch Perez MD CC: Lou PROMOTIONS MANAGER-C Brook Brennan; STEPAN Hsu ~ Date Dictated: 08/28/24 1021 Date Transcribed: 08/31/24 1524 Data Migration Lead: Signed [facility] Work Phone: Stress Test Echo W/Contrasto n 08-28-2024 Stress Test Echo W/Contrast [facility] [address] [place] [address] Stress Test Echo W/Contrast MR#: [id number] Acct: [id number] Name: XIMENA PINO Rep #: [id number] : 1955 68 From: Mitch Perez MD Primary Care: SIERRA Sandoval, PROMOTIONS MANAGER-C Status: REG CLI Ordering Dr: Emery Lira Sex: F C Reason For Study Reason For Study: Dyspnea Stress Results Protocol: Rachid Protocol WITH DEFINITY Maximum Predicted HR: 153 bpm Target HR: 130 bpm % Maximum Predicted HR: 91 % DurationHeart Rate Stage (mm:ss) (bpm) BP Comment Baseline 80 152/78No Chest Pain; 2 ML Diluted Definity Rachid Protocol Stage I 3:00 114 172/74No Chest Pain; Mild/Moderate Dyspnea Rachid Protocol Stage II 1:40 139 190/72No Chest Pain; Moderate/Severe Dyspnea Recovery 99 136/72No Chest Pain; No Dyspnea Stress Duration: 4:40 mm:ss Maximum Stress HR: 139 bpm METS: 7 Baseline Echocardiogram Findings Stress Echo Wall motion Data Resting WM Intermediate WM Stress WM ECHO/Stress Test Echo W/Contrast Interpretation Summary Stress echo with and without Definity. Resting EKG demonstrates normal sinus rhythm with a rate of 75 bpm resting blood pressure is 152/78 mmHg. Patient exercised according to the regular Rachid protocol for total duration of 4 minutes and 40 seconds. The maximum heart rate attained was 139 bpm which was 90% of maximum predicted heart rate the maximum workload was 7 metabolic equivalents. At rest there were no ST ST or T wave changes noted suggest ischemia and at peak exercise nonspecific ST-T wave changes were noted we did not meet the criteria for ischemia. No clinical angina was noted. The test was terminated due to shortness of breath. The peak blood pressure was 190/72 mmHg which was a normal blood pressure response to exercise. No arrhythmias were noted. Stress echocardiogram. Stress echocardiogram was performed with Definity enhancement. The resting echocardiogram demonstrated preserved ejection fraction of 65% with no wall motion abnormalities present. At peak exercise there was thickening of all kent and reduction of low ventricular cavity size peaking at 70% no ischemia was noted no arrhythmias were noted. Conclusion: Stress echocardiogram with no EKG or echocardiographic criteria for ischemia at a moderate workload. No arrhythmias noted. Ordering Physician: Emery Lira Referring Physician: Emery Lira Performed By: Estelita Buenrostro RDCS 08/31/24 1524 Date Mitch Perez MD CC: [facility] PROMOTIONS MANAGER-C STEPAN Miranda Date Dictated: 08/28/24 1021 Date Transcribed: 08/31/24 1524 Data Migration Lead: Signed Normal [facility] Cardiology Visit Reporton Cardiology Visit Report [facility] [address] [place], [place] [address]. [address] [place] [address] OFFICE VISIT Date of Service: 08/25/24 MR#: [id number] Acct: [id number] Name: XIMENA PINO Rep #: [id number] : 1955 Provider: STEPAN Hsu Age/Sex: 68/F Location: [facility] Status: Signed HPI HPI History of Present Illness Details: Ximena Pino is a 68-year-old female who presents to office today for follow-up for monitoring her cardiovascular health. Patient has a history of hypertension. She presented to the emergency department in January 2023 with shortness of breath. Workup demonstrated normal hemoglobin, elevated D-dimer and normal troponin. Her BNP was increased at 433. CT scan of her chest demonstrated no evidence of pulmonary embolism. Patient was discharged from hospital. Patient underwent pharmacological myocardial perfusion stress test that demonstrated no evidence of ischemia. Patient underwent evaluation with a 48-hour Holter monitor in January 2023 and this demonstrated 16% paroxysmal atrial fibrillation. Patient was initiated on anticoagulation. Her echocardiogram in April 2023 demonstrated preserved ejection fraction at 65% with mildly enlarged left atrium and normal right atrium and no significant valve disease. Upon presentation today, patient reports fatigue described as a decrease in her energy over the last few months. She has been experiencing a couple months of lower extremity edema that appears to be worse by the end of the day and improves/resolves with elevation. She has considered compression stockings but is unable to place them on her own legs. She reports worsening in her shortness of breath in which she finds herself needing to stop approximately every 50 feet to rest even when walking on a flat surface. This has been noticed to have worsened over the past 1 month. She denies shortness of breath at rest and denies orthopnea. Every few weeks, she can feel palpitations and associates this with atrial fibrillation. She has sleep apnea and is compliant with her CPAP every night. She also reports some increased stress with family members going through different health concerns. Further ROS below. Intake Vital Signs 12/17/23 13:56 08/25/24 07:11 08/25/24 13:30 Height 5 ft 6 in 5 ft 6 in Weight: 318 lb BMI 51.3 BP 162/98 H 138/70 H Blood Pressure Location Lt brachial Lt brachial Position Sitting Sitting Respiration 18 Pulse 68 Pulse Source Monitor Pulse Oximetry (%) 94 Intake Visit Reasons: 18 M FU Explosives Worker Required: No Is patient in pain?: No Allergies No Known Allergies Allergy (Verified 08/25/24 13:11) Medications ???Medication ???Instructions ???Recorded ???Confirmed ???Type losartan 100 1 tab PO DAILY 02/11/23 08/25/24 H istory mg-hydrochlorothiazide 25 mg tablet metoprolol tartrate 100 mg tablet 100 mg PO BID 02/11/23 08/25/24 H istory oxybutynin chloride 10 mg 10 mg PO DAILY 02/11/23 08/25/24 H istory tablet,extended release 24 hr apixaban 5 mg tablet (Eliquis) 5 mg PO BID #60 tabs 03/13/2308/09 Rx amlodipine 10 mg tablet 10 mg PO DAILY #90 tabs 08/25/24 Rx bupropion HCl 100 mg tablet,12 hr 100 mg PO BID 08/25/24 08/25/24 H istory sustained-release cholecalciferol (vitamin D3) 125 125 mcg PO QDAY 08/25/24 08/25/24 History mcg (5,000 unit) capsule rosuvastatin 10 mg tablet 5 mg PO DAILY 08/25/24 08/25/24 Hi story terbinafine HCl 250 mg tablet 250 mg PO QDAY 08/25/24 08/25/24 H istory Ejection fraction %: 65 Have you fallen in the past year?: No PFSH Medical History KEV (obstructive sleep apnea) Intermittent palpitations HTN (hypertension) Social History Smoking Status: Former smoker Tobacco: How many years used: 12 ROS Const Const: Positive for fatigue; Negative for weakness, headache(s) or frequent falls Eyes Eyes: Negative for blurry vision ENT ENT: Negative for headache(s), dizziness or Nosebleed/epistaxis Cardio Chest Pain: No Palpitations: No Edema: Bilateral Muscle aches with walking: Bilateral Resp Respiratory: Positive for SOB with activity and SOB at rest; Negative for SOB orthopnea SOB lying down GI GI: Negative nausea, vomiting, heartburn, bright, red blood in stools or black,tarry stools : Negative for hematuria Neuro Neuro: Negative for dizziness, lightheadedness, near syncope, syncope, frequent falls, headache(s), weakness or blurry vision Endo Endo: Positive for fatigue Cardiology Exam Const Appearance: cooperative, comfortable, no acute distress and well developed; Negative diaphoretic or ill appearing Nutritional Appearance: obese Orientation: alert and patel (more content not included)... Normal [facility] Absolute lymphocyte countOrd ered By: Laurel Newell on 08-06-2024 Lymphocytes Auto (Unsp spec) [#/Vol] 2.86 10*3/uL 0.83-4.51 [facility] Absolute neutrophil countOrd ered By: Laureljose maria Newell on 08-06-2024 Neutrophils (Bld) [#/Vol] 6.5 10*3/uL 2.0-7.7 [facility] Anion gap in Serum or Plasma Ordered By: Laurel Newell on 08-06-2024 Anion gap [Moles/Vol] 11 mmol/L 5-15 [facility] Automated lymphocyte count a s percentage of total leukocytesOrdered By: Laureljose maria Newell on 08-06-2024 Lymphocytes/100 WBC Auto (Unsp spec) 26.9 % 19-41 [facility] BUN/creatinine ratioOrdered By: [place] Duglascailin on 08-06-2024 Urea nitrogen/Creatinine [Mass ratio] 21.4 mg/mg High 10-20 [facility] Basophil percentageOrdered B y: Laurel Newell on 08-06-2024 Basophils/100 WBC (Bld) 0.9 % 0-1 [facility] Bilirubin, totalOrdered By: Laureljose maria Newell on 08-06-2024 Bilirubin [Mass/Vol] 0.25 mg/dL 0.00-1.30 [facility] CBC W/Diff, Automatedon 07-10 Absolute Lymph 2.86 X10 3/uL Normal 0.83-4.51 [facility] Comment on above: Performed By: #### L 300.8000, L500.4050, L100.0100, L503.7505 #### [facility] [address] [place], [place], [address] Absolute Neut 6.5 X10 3/uL Normal 2.0-7.7 [facility] Comment on above: Performed By: #### L 300.8000, L500.4050, L100.0100, L503.7505 #### [facility] [address] [place], [address] Basophils/100 WBC (Bld) 0.9 % Normal 0-1 [facility] Comment on above: Performed By: #### L 300.8000, L500.4050, L100.0100, L503.7505 #### [facility] [address] [place], [address] Eosinophils/100 WBC (Bld) 2.8 % Normal 0-5 [facility] Comment on above: Performed By: #### L 300.8000, L500.4050, L100.0100, L503.7505 #### [facility] [address] [place], [address] Erythrocyte distribution width (RBC) [Ratio] 12.9 % Normal 11.6-14.6 [facility] Comment on above: Performed By: #### L 300.8000, L500.4050, L100.0100, L503.7505 #### [facility] [address] [place], [address] Hematocrit (Bld) [Volume fraction] 38.0 % Normal 37-47 [facility] Comment on above: Performed By: #### L 300.8000, L500.4050, L100.0100, L503.7505 #### [facility] [address] [place], [address] Hemoglobin (Bld) [Mass/Vol] 12.9 g/dL Normal 12.0-15.0 [facility] Comment on above: Performed By: #### L 300.8000, L500.4050, L100.0100, L503.7505 #### [facility] [address] [place], [address] IG% 0.400 Normal 0.0-0.9 [facility] Comment on above: Result Comment: IG% - Immature Granulocytes (promyelocytes, myelocytes and metamyelocytes) > 1% indicates that a LEFT SHIFT is Present. Performed By: #### L 300.8000, L500.4050, L100.0100, L503.7505 #### [facility] [address] [place], [address] Lymphocytes/100 WBC (Bld) 26.9 % Normal 19-41 [facility] Comment on above: Performed By: #### L 300.8000, L500.4050, L100.0100, L503.7505 #### [facility] [address] [place], [address] MCH (RBC) [Entitic mass] 29.6 pg Normal 27.0-32.0 [facility] Comment on above: Performed By: #### L 300.8000, L500.4050, L100.0100, L503.7505 #### [facility] [address] [place], [address] MCHC (RBC) [Mass/Vol] 33.9 g/dL Normal 32-36 [facility] Comment on above: Performed By: #### L 300.8000, L500.4050, L100.0100, L503.7505 #### [facility] [address] [place], [address] MCV (RBC) [Entitic vol] 87.2 fL Normal 81-99 [facility] Comment on above: Performed By: #### L 300.8000, L500.4050, L100.0100, L503.7505 #### [facility] [address] [place], [address] Monocytes/100 WBC (Bld) 7.4 % Normal 0-10 [facility] Comment on above: Performed By: #### L 300.8000, L500.4050, L100.0100, L503.7505 #### [facility] [address] [place], [address] Neutrophils/100 WBC (Bld) 61.6 % Normal 47-70 [facility] Comment on above: Performed By: #### L 300.8000, L500.4050, L100.0100, L503.7505 #### [facility] [address] [place], [address] Nucleated RBC (Bld) [#/Vol] 0 10*3/uL Normal 0-5 [facility] Comment on above: Performed By: #### L 300.8000, L500.4050, L100.0100, L503.7505 #### [facility] [address] [place], [address] Platelet mean volume (Bld) [Entitic vol] 9.1 fL Normal 6.2-12.0 [facility] Comment on above: Performed By: #### L 300.8000, L500.4050, L100.0100, L503.7505 #### [facility] [address] [place], [address] Platelets (Bld) [#/Vol] 300 10*3/uL Normal 150-450 [facility] Comment on above: Performed By: #### L 300.8000, L500.4050, L100.0100, L503.7505 #### [facility] [address] [place], [address] RBC (Bld) [#/Vol] 4.36 10*6/uL Normal 4.2-5.4 [facility] Comment on above: Performed By: #### L 300.8000, L500.4050, L100.0100, L503.7505 #### [facility] [address] [place], [address] RDW SD 41.0 fl Normal 35.1-43.9 [facility] Comment on above: Performed By: #### L 300.8000, L500.4050, L100.0100, L503.7505 #### [facility] [address] [place], [address] WBC (Bld) [#/Vol] 10.6 10*3/uL Normal 4.4-11.0 [facility] Comment on above: Performed By: #### L 300.8000, L500.4050, L100.0100, L503.7505 #### [facility] [address] [place], [address] Carbon dioxide, total [Moles /volume] in Central venous bloodOrdered By: Laurel Newell on 08-06-2024 CO2 [Moles/Vol] 25.7 mmol/L 21.0-32.0 [facility] Chest PA and Lateralon 08-06 Chest PA and Lateral [facility] [address] [place] [address] Chest PA and Lateral MR#: [id number] Acct: [id number] Name: XIMENA PINO Rep #: [id number] : 1955 F 68 From: Cooper dudley MD PCP: SIERRA Sandoval, PROMOTIONS MANAGER-C Status: REG CLI Study: Chest PA and Lateral Date of Exam: 08/06/24 Exam# [id number] Ordering Dr: Laurel Newell PROMOTIONS MANAGER-C PROCEDURE: CHEST PA AND LATERAL 08/06/2024 REASON FOR EXAM: SOB Wheezing and shortness of breath. TECHNIQUE: Frontal and lateral views of the chest. COMPARISON: None FINDINGS: Hardware: None Heart: Heart size upper limits of normal. Mediastinum: The mediastinal contour is unremarkable. Lungs: The lungs are clear. Bones: Degenerative changes are identified within the thoracic spine. RAD/Chest PA and Lateral IMPRESSION: NO ACUTE FINDINGS. Reading Location: [facility] CC: PROMOTIONS MANAGER-C Laurel Newell; [facility] PANCHITO Brennan Data Migration Lead: Signed Normal [facility] Chloride assayOrdered By: Mami Newell on 08-06-2024 Chloride [Moles/Vol] 101 mmol/L 98-108 [facility] Comprehensive Metabolic Prof ilon 08-06-2024 Albumin [Mass/Vol] 4.3 g/dL Normal 3.4-4.8 [facility] Comment on above: Performed By: #### L 300.8000, L500.4050, L100.0100, L503.7505 #### [facility] [address] [place], [address] Albumin/Globulin [Mass ratio] 1.5 {ratio} Normal 0.9-2.4 [facility] Comment on above: Performed By: #### L 300.8000, L500.4050, L100.0100, L503.7505 #### [facility] [address] [place], [address] ALK PHOS 80 U/L Normal 35-104 [facility] Comment on above: Performed By: #### L 300.8000, L500.4050, L100.0100, L503.7505 #### [facility] [address] [place], [address] ALT [Catalytic activity/Vol] 18 U/L Normal <=34 [facility] Comment on above: Performed By: #### L 300.8000, L500.4050, L100.0100, L503.7505 #### [facility] [address] [place], [address] AST [Catalytic activity/Vol] 24 U/L Normal <=31 [facility] Comment on above: Performed By: #### L 300.8000, L500.4050, L100.0100, L503.7505 #### [facility] [address] [place], [address] Bilirubin [Mass/Vol] 0.25 mg/dL Normal 0.00-1.30 [facility] Comment on above: Performed By: #### L 300.8000, L500.4050, L100.0100, L503.7505 #### [facility] [address] [place], [address] BUN/CRE 21.4 RATIO High 10-20 [facility] Comment on above: Performed By: #### L 300.8000, L500.4050, L100.0100, L503.7505 #### [facility] [address] [place], [address] Calcium [Mass/Vol] 9.7 mg/dL Normal 7.6-11.0 [facility] Comment on above: Performed By: #### L 300.8000, L500.4050, L100.0100, L503.7505 #### [facility] [address] [place], [address] Chloride [Moles/Vol] 101 mmol/L Normal 98-108 [facility] Comment on above: Performed By: #### L 300.8000, L500.4050, L100.0100, L503.7505 #### [facility] [address] [place], [address] CO2 [Moles/Vol] 25.7 mmol/L Normal 21.0-32.0 [facility] Comment on above: Performed By: #### L 300.8000, L500.4050, L100.0100, L503.7505 #### [facility] [address] [place], [address] Creatinine [Mass/Vol] 0.73 mg/dL Normal 0.70-1.20 [facility] Comment on above: Performed By: #### L 300.8000, L500.4050, L100.0100, L503.7505 #### [facility] [address] [place], [address] GAP 11 Normal 5-15 [facility] Comment on above: Performed By: #### L 300.8000, L500.4050, L100.0100, L503.7505 #### [facility] [address] [place], [address] GFR/1.73 sq M.predicted among non-blacks MDRD (S/P/Bld) [Vol rate/Area] 90 mL/min/{1.73_m2} Normal >60 [facility] Comment on above: Result Comment: mL/m in/1.73m2 CKD-EPI Creatinine Equation (2020) Performed By: #### L 300.8000, L500.4050, L100.0100, L503.7505 #### [facility] [address] [place], [address] Globulin (S) [Mass/Vol] 2.8 g/dL Normal 2.2-4.2 [facility] Comment on above: Performed By: #### L 300.8000, L500.4050, L100.0100, L503.7505 #### [facility] [address] [place], [address] Glucose [Mass/Vol] 113 mg/dL High 70-99 [facility] Comment on above: Performed By: #### L 300.8000, L500.4050, L100.0100, L503.7505 #### [facility] [address] [place], [address] Potassium [Moles/Vol] 4.1 mmol/L Normal 3.3-5.1 [facility] Comment on above: Performed By: #### L 300.8000, L500.4050, L100.0100, L503.7505 #### [facility] [address] [place], [address] Sodium [Moles/Vol] 138 mmol/L Normal 133-145 [facility] Comment on above: Performed By: #### L 300.8000, L500.4050, L100.0100, L503.7505 #### [facility] [address] [place], [address] T PROT 7.1 g/dL Normal 5.9-8.4 [facility] Comment on above: Performed By: #### L 300.8000, L500.4050, L100.0100, L503.7505 #### [facility] [address] [place], [address] Urea nitrogen [Mass/Vol] 16 mg/dL Normal 4-19 [facility] Comment on above: Performed By: #### L 300.8000, L500.4050, L100.0100, L503.7505 #### [facility] [address] [place], [address] D-Dimer Quantitative (DVT/PE )on 08-06-2024 D-DIMER QUANT 0.86 FEU/ug/m Invalid Interpretation Code 0.27-0.49 [facility] Comment on above: Result Comment: D-Di yuval ELEVATED (>0.49): Additional studies and clinical assessments are indicated to conclude diagnosis of: Deep Vein Thrombosis (DVT) or Pulmonary Embolism (PE) CRITICAL VALUE CALLED TO Skip VIDAL 08/06/24 Alysia6 Khushboo Allred. RESULTS READ BACK BY SAME. Performed By: #### L 300.8000, L500.4050, L100.0100, L503.7505 ####[facility] [address] [place], [address] Eosinophil percentageOrdered By: Laurel Newell on 08-06-2024 Eosinophils/100 WBC (Bld) 2.8 % 0-5 [facility] Erythrocyte distribution wid th ratioOrdered By: Laurel Newell on 08-06-2024 Erythrocyte distribution width (RBC) [Ratio] 12.9 % 11.6-14.6 [facility] Erythrocyte distribution wid th standard deviationOrdered By: Laurel Newell on 08-06-2024 Erythrocyte distribution width (RBC) [Ratio] 41.0 fl 35.1-43.9 [facility] Glomerular filtration rate ( GFR) estimation/1.73 sq m using serum, plasma, or whole bOrdered By: Laurel Newell on 08-06-2024 GFR/1.73 sq M.predicted among non-blacks MDRD (S/P/Bld) [Vol rate/Area] 90 mL/min/{1.73_m2} >60 [facility] Comment on above: mL/min/1.73m2 CKD-EP I Creatinine Equation (2020) Hematocrit Auto (Bld) [Volum e fraction]Ordered By: Laureljose maria Newell on 08-06-2024 Hematocrit (Bld) [Volume fraction] 38.0 % 37-47 [facility] Hemoglobin measurementOrdere d By: Laureljose maria Ardoncailin on 08-06-2024 Hemoglobin (Bld) [Mass/Vol] 12.9 g/dL 12.0-15.0 [facility] Immature granulocytes/100 WB C Auto (Bld)Ordered By: Laureljos emaria Newell on 08-06-2024 Immature granulocytes/100 WBC (Bld) 0.400 % 0.0-0.9 [facility] Comment on above: IG% - Immature Granu locytes (promyelocytes, myelocytes and metamyelocytes) > 1% indicates that a LEFT SHIFT is Present. L503.7505on 08-06-2024 Natriuretic peptide B (Bld) [Mass/Vol] 435 pg/mL Normal <=900 [facility] Comment on above: Result Comment: Hear t Failure Unlikely: < 300 pg/mL Heart Failure Likely < 50 Years: > 450 pg/mL 50-75 Years: > 900 pg/mL >75 Years: > 1800 pg/mL Performed By: #### L 300.8000, L500.4050, L100.0100, L503.7505 ####[facility] [address] [place], [address] Laboratory - Chemistry and C hemistry - challengeOrdered By: Laureljose maria Newell on 08-06-2024 AST [Catalytic activity/Vol] 24 U/L <32 [facility] MCV (mean corpuscular volume ) determinationOrdered By: Laurel Newell on 08-06-2024 MCV (RBC) [Entitic vol] 87.2 fL 81-99 [facility] Mean corpuscular hemoglobin (MCH) determinationOrdered By: Laurel Newell on 08-06-2024 MCH (RBC) [Entitic mass] 29.6 pg 27.0-32.0 [facility] Mean corpuscular hemoglobin concentration (MCHC) determinationOrdered By: Laurel Newell on 08-06-2024 MCHC (RBC) [Mass/Vol] 33.9 g/dL 32-36 [facility] Mean platelet volume determi nationOrdered By: Laurel Newell on 08-06-2024 Platelet mean volume (Bld) [Entitic vol] 9.1 fL 6.2-12.0 [facility] Monocyte percentageOrdered B y: Laurel Newell on 08-06-2024 Monocytes/100 WBC (Bld) 7.4 % 0-10 [facility] Natriuretic peptide.B prohor oumou N-Terminal [Mass/volume] in Serum or PlasmaOrdered By: Laurel Newell on 08-06-2024 Natriuretic peptide.B prohormone N-Terminal [Mass/Vol] 435 pg/mL <900 [facility] Comment on above: Heart Failure Unlike ly: < 300 pg/mLHeart Failure Likely< 50 Years: > 450 pg/mL50-75 Years: > 900 pg/mL>75 Years: > 1800 pg/mL Neutrophil percentageOrdered By: Laurel Newell on 08-06-2024 Neutrophils/100 WBC (Bld) 61.6 % 47-70 [facility] Nucleated red blood cell per centageOrdered By: Laurel Newell on 08-06-2024 Nucleated RBC/100 WBC (Bld) [Ratio] 0 % 0-5 [facility] Platelet countOrdered By: Mami Newell on 08-06-2024 Platelets (Bld) [#/Vol] 300 10*3/uL 150-450 [facility] Potassium measurement (mass/ volume)Ordered By: Laurel Newell on 08-06-2024 Potassium (Unsp spec) [Mass/Vol] 4.1 mmol/L 3.3-5.1 [facility] RBC Auto (Bld) [#/Vol]Ordere d By: Laurel Newell on 08-06-2024 RBC (Bld) [#/Vol] 4.36 10*6/uL 4.2-5.4 [facility] Serum creatinine measurement (mass/volume)Ordered By: Laurel Newell on 08-06-2024 Creatinine [Mass/Vol] 0.73 mg/dL 0.70-1.20 [facility] Serum globulin measurementOr dered By: Laurel Newell on 08-06-2024 Globulin (S) [Mass/Vol] 2.8 g/dL 2.2-4.2 [facility] Serum glucose measurement (m ass/volume)Ordered By: Laurel Newell on 08-06-2024 Glucose [Mass/Vol] 113 mg/dL High 70-99 [facility] Serum or plasma alanine christian otransferase (ALT) measurementOrdered By: Laurel Newell on 08-06-2024 ALT [Catalytic activity/Vol] 18 U/L <35 [facility] Serum or plasma albumin spencer urement (mass/volume)Ordered By: Laurel Newell 08-06-2024 Albumin [Mass/Vol] 4.3 g/dL 3.4-4.8 [facility] Serum or plasma albumin/glob ulin mass ratioOrdered By: Laurel Newell 08-06-2024 Albumin/Globulin [Mass ratio] 1.5 {ratio} 0.9-2.4 [facility] Serum or plasma alkaline vladimir sphatase measurementOrdered By: Laurel Newell 08-06-2024 ALP [Catalytic activity/Vol] 80 U/L 35-104 [facility] Serum or plasma calcium spencer urement (mass/volume)Ordered By: Laurel Newell 08-06-2024 Calcium [Mass/Vol] 9.7 mg/dL 7.6-11.0 [facility] Serum or plasma urea nitroge n measurement (mass/volume)Ordered By: Laurel Newell 08-06-2024 Urea nitrogen [Mass/Vol] 16 mg/dL 4-19 [facility] Sodium levelOrdered By: Tati Newell on 08-06-2024 Sodium [Moles/Vol] 138 mmol/L 133-145 [facility] Total proteinOrdered By: Jaime jose maria Osiris on 08-06-2024 Protein [Mass/Vol] 7.1 g/dL 5.9-8.4 [facility] White blood cell (WBC) count Ordered By: Laurel Newell on 08-06-2024 WBC (Bld) [#/Vol] 10.6 10*3/uL 4.4-11.0 [facility] Absolute lymphocyte countOrd ered By: [facility] Brook Brennan on 06-09-2024 Lymphocytes Auto (Unsp spec) [#/Vol] 3.40 10*3/uL 0.83-4.51 [facility] Absolute neutrophil countOrd ered By: [facility] Brook Brennan on 06-09-2024 Neutrophils (Bld) [#/Vol] 6.4 10*3/uL 2.0-7.7 [facility] Anion gap in Serum or Plasma Ordered By: [facility] Brook Brennan on 06-09-2024 Anion gap [Moles/Vol] 14 mmol/L 5-15 [facility] Automated lymphocyte count a s percentage of total leukocytesOrdered By: [facility] Brook Brennan on 06-09-2024 Lymphocytes/100 WBC Auto (Unsp spec) 30.7 % 19-41 [facility] BUN/creatinine ratioOrdered By: [facility] Brook Brennan on 06-09-2024 Urea nitrogen/Creatinine [Mass ratio] 19.4 mg/mg 10-20 [facility] Basophil percentageOrdered B y: [facility] Brook Brennan on 06-09-2024 Basophils/100 WBC (Bld) 0.7 % 0-1 [facility] Bilirubin, totalOrdered By: [facility] Brook Brennan on 06-09-2024 Bilirubin [Mass/Vol] 0.30 mg/dL 0.00-1.30 [facility] CBC W/Diff, Automatedon Absolute Lymph 3.40 X10 3/uL Normal 0.83-4.51 [facility] Comment on above: Performed By: #### L 506.1001, L501.9520, L506.0200, L503.0106, L500.4050, L500.4100, L100.0100 ####[facility] [address] [place], [address] Absolute Neut 6.4 X10 3/uL Normal 2.0-7.7 [facility] Comment on above: Performed By: #### L 506.1001, L501.9520, L506.0200, L503.0106, L500.4050, L500.4100, L100.0100 ####[facility] [address] [place], [address] Basophils/100 WBC (Bld) 0.7 % Normal 0-1 [facility] Comment on above: Performed By: #### L 506.1001, L501.9520, L506.0200, L503.0106, L500.4050, L500.4100, L100.0100 ####[facility] [address] [place], [address] Eosinophils/100 WBC (Bld) 2.1 % Normal 0-5 [facility] Comment on above: Performed By: #### L 506.1001, L501.9520, L506.0200, L503.0106, L500.4050, L500.4100, L100.0100 ####[facility] [address] [place], [address] Erythrocyte distribution width (RBC) [Ratio] 12.6 % Normal 11.6-14.6 [facility] Comment on above: Performed By: #### L 506.1001, L501.9520, L506.0200, L503.0106, L500.4050, L500.4100, L100.0100 ####[facility] [address] [place], [address] Hematocrit (Bld) [Volume fraction] 42.4 % Normal 37-47 [facility] Comment on above: Performed By: #### L 506.1001, L501.9520, L506.0200, L503.0106, L500.4050, L500.4100, L100.0100 ####[facility] [address] [place], [address] Hemoglobin (Bld) [Mass/Vol] 14.6 g/dL Normal 12.0-15.0 [facility] Comment on above: Performed By: #### L 506.1001, L501.9520, L506.0200, L503.0106, L500.4050, L500.4100, L100.0100 ####[facility] [address] [place], [address] IG% 0.300 Normal 0.0-0.9 [facility] Comment on above: Result Comment: IG% - Immature Granulocytes (promyelocytes, myelocytes and metamyelocytes) > 1% indicates that a LEFT SHIFT is Present. Performed By: #### L 506.1001, L501.9520, L506.0200, L503.0106, L500.4050, L500.4100, L100.0100 ####[facility] [address] [place], [address] Lymphocytes/100 WBC (Bld) 30.7 % Normal 19-41 [facility] Comment on above: Performed By: #### L 506.1001, L501.9520, L506.0200, L503.0106, L500.4050, L500.4100, L100.0100 ####[facility] [address] [place], [address] MCH (RBC) [Entitic mass] 30.2 pg Normal 27.0-32.0 [facility] Comment on above: Performed By: #### L 506.1001, L501.9520, L506.0200, L503.0106, L500.4050, L500.4100, L100.0100 ####[facility] [address] [place], [address] MCHC (RBC) [Mass/Vol] 34.4 g/dL Normal 32-36 [facility] Comment on above: Performed By: #### L 506.1001, L501.9520, L506.0200, L503.0106, L500.4050, L500.4100, L100.0100 ####[facility] [address] [place], [address] MCV (RBC) [Entitic vol] 87.6 fL Normal 81-99 [facility] Comment on above: Performed By: #### L 506.1001, L501.9520, L506.0200, L503.0106, L500.4050, L500.4100, L100.0100 ####[facility] [address] [place], [address] Monocytes/100 WBC (Bld) 8.2 % Normal 0-10 [facility] Comment on above: Performed By: #### L 506.1001, L501.9520, L506.0200, L503.0106, L500.4050, L500.4100, L100.0100 ####[facility] [address] [place], [address] Neutrophils/100 WBC (Bld) 58.0 % Normal 47-70 [facility] Comment on above: Performed By: #### L 506.1001, L501.9520, L506.0200, L503.0106, L500.4050, L500.4100, L100.0100 ####[facility] [address] [place], [address] Nucleated RBC (Bld) [#/Vol] 0 10*3/uL Normal 0-5 [facility] Comment on above: Performed By: #### L 506.1001, L501.9520, L506.0200, L503.0106, L500.4050, L500.4100, L100.0100 ####[facility] [address] [place], [address] Platelet mean volume (Bld) [Entitic vol] 9.0 fL Normal 6.2-12.0 [facility] Comment on above: Performed By: #### L 506.1001, L501.9520, L506.0200, L503.0106, L500.4050, L500.4100, L100.0100 ####[facility] [address] [place], [address] Platelets (Bld) [#/Vol] 305 10*3/uL Normal 150-450 [facility] Comment on above: Performed By: #### L 506.1001, L501.9520, L506.0200, L503.0106, L500.4050, L500.4100, L100.0100 ####[facility] [address] [place], [address] RBC (Bld) [#/Vol] 4.84 10*6/uL Normal 4.2-5.4 [facility] Comment on above: Performed By: #### L 506.1001, L501.9520, L506.0200, L503.0106, L500.4050, L500.4100, L100.0100 ####[facility] [address] [place], [address] RDW SD 40.2 fl Normal 35.1-43.9 [facility] Comment on above: Performed By: #### L 506.1001, L501.9520, L506.0200, L503.0106, L500.4050, L500.4100, L100.0100 ####[facility] [address] [place], [address] WBC (Bld) [#/Vol] 11.1 10*3/uL High 4.4-11.0 [facility] Comment on above: Performed By: #### L 506.1001, L501.9520, L506.0200, L503.0106, L500.4050, L500.4100, L100.0100 ####[facility] [address] [place], [place], [id number] Calculated very low density lipoprotein (VLDL) cholesterol measurementOrdered By: [facility] Brook Brennan on 06-09-2024 Calculated very low density lipoprotein (VLDL) cholesterol measurement 49 mg/dL High 5-40 [facility] VLDL Cholesterol 49 mg/dL High 5-40 [facility] Carbon dioxide, total [Moles /volume] in Central venous bloodOrdered By: [facility] Brook Brennan on 06-09-2024 CO2 [Moles/Vol] 25.0 mmol/L 21.0-32.0 [facility] Chloride assayOrdered By: [facility] Brook Brennan on 06-09-2024 Chloride [Moles/Vol] 99 mmol/L 98-108 [facility] Comprehensive Metabolic Prof ilon 06-09-2024 Albumin [Mass/Vol] 4.6 g/dL Normal 3.4-4.8 [facility] Comment on above: Performed By: #### L 506.1001, L501.9520, L506.0200, L503.0106, L500.4050, L500.4100, L100.0100 ####[facility] [address] [place], [place], [phone] Albumin/Globulin [Mass ratio] 1.4 {ratio} Normal 0.9-2.4 [facility] Comment on above: Performed By: #### L 506.1001, L501.9520, L506.0200, L503.0106, L500.4050, L500.4100, L100.0100 ####[facility] [address] [place], [address] ALK PHOS 93 U/L Normal 35-104 [facility] Comment on above: Performed By: #### L 506.1001, L501.9520, L506.0200, L503.0106, L500.4050, L500.4100, L100.0100 ####[facility] [address] [place], [address] ALT [Catalytic activity/Vol] 14 U/L Normal <=34 [facility] Comment on above: Performed By: #### L 506.1001, L501.9520, L506.0200, L503.0106, L500.4050, L500.4100, L100.0100 ####[facility] [address] [place], [address] AST [Catalytic activity/Vol] 21 U/L Normal <=31 [facility] Comment on above: Performed By: #### L 506.1001, L501.9520, L506.0200, L503.0106, L500.4050, L500.4100, L100.0100 ####[facility] [address] [place], [place], [phone] Bilirubin [Mass/Vol] 0.30 mg/dL Normal 0.00-1.30 [facility] Comment on above: Performed By: #### L 506.1001, L501.9520, L506.0200, L503.0106, L500.4050, L500.4100, L100.0100 ####[facility] [address] [place], [address] BUN/CRE 19.4 RATIO Normal 10-20 [facility] Comment on above: Performed By: #### L 506.1001, L501.9520, L506.0200, L503.0106, L500.4050, L500.4100, L100.0100 ####[facility] [address] [place], [address] Calcium [Mass/Vol] 9.4 mg/dL Normal 7.6-11.0 [facility] Comment on above: Performed By: #### L 506.1001, L501.9520, L506.0200, L503.0106, L500.4050, L500.4100, L100.0100 ####[facility] [address] [place], [address] Chloride [Moles/Vol] 99 mmol/L Normal 98-108 [facility] Comment on above: Performed By: #### L 506.1001, L501.9520, L506.0200, L503.0106, L500.4050, L500.4100, L100.0100 ####[facility] [address] [place], [address] CO2 [Moles/Vol] 25.0 mmol/L Normal 21.0-32.0 [facility] Comment on above: Performed By: #### L 506.1001, L501.9520, L506.0200, L503.0106, L500.4050, L500.4100, L100.0100 ####[facility] [address] [place], [address] Creatinine [Mass/Vol] 1.07 mg/dL Normal 0.70-1.20 [facility] Comment on above: Performed By: #### L 506.1001, L501.9520, L506.0200, L503.0106, L500.4050, L500.4100, L100.0100 ####[facility] [address] [place], [address] GAP 14 Normal 5-15 [facility] Comment on above: Performed By: #### L 506.1001, L501.9520, L506.0200, L503.0106, L500.4050, L500.4100, L100.0100 ####[facility] [address] [place], [address] GFR/1.73 sq M.predicted among non-blacks MDRD (S/P/Bld) [Vol rate/Area] 57 mL/min/{1.73_m2} Low >60 [facility] Comment on above: Result Comment: mL/m in/1.73m2 CKD-EPI Creatinine Equation (2020) Performed By: #### L 506.1001, L501.9520, L506.0200, L503.0106, L500.4050, L500.4100, L100.0100 ####[facility] [address] [place], [address] Globulin (S) [Mass/Vol] 3.3 g/dL Normal 2.2-4.2 [facility] Comment on above: Performed By: #### L 506.1001, L501.9520, L506.0200, L503.0106, L500.4050, L500.4100, L100.0100 ####[facility] [address] [place], [address] Glucose [Mass/Vol] 101 mg/dL High 70-99 [facility] Comment on above: Performed By: #### L 506.1001, L501.9520, L506.0200, L503.0106, L500.4050, L500.4100, L100.0100 ####[facility] [address] [place], [address] Potassium [Moles/Vol] 3.5 mmol/L Normal 3.3-5.1 [facility] Comment on above: Performed By: #### L 506.1001, L501.9520, L506.0200, L503.0106, L500.4050, L500.4100, L100.0100 ####[facility] [address] [place], [address] Sodium [Moles/Vol] 138 mmol/L Normal 133-145 [facility] Comment on above: Performed By: #### L 506.1001, L501.9520, L506.0200, L503.0106, L500.4050, L500.4100, L100.0100 ####[facility] [address] [place], [address] T PROT 7.9 g/dL Normal 5.9-8.4 [facility] Comment on above: Performed By: #### L 506.1001, L501.9520, L506.0200, L503.0106, L500.4050, L500.4100, L100.0100 ####[facility] [address] [place], [address] Urea nitrogen [Mass/Vol] 21 mg/dL High 4-19 [facility] Comment on above: Performed By: #### L 506.1001, L501.9520, L506.0200, L503.0106, L500.4050, L500.4100, L100.0100 ####[facility] [address] [place], [address] Eosinophil percentageOrdered By: [facility] Brook Brennan on 06-09-2024 Eosinophils/100 WBC (Bld) 2.1 % 0-5 [facility] Erythrocyte distribution wid th (RBC) [Ratio]Ordered By: [facility] Brook Brennan on 06-09-2024 Erythrocyte distribution width (RBC) [Entitic vol] 40.2 fL 35.1-43.9 [facility] Erythrocyte distribution wid th ratioOrdered By: [facility] Brook Brennan on 06-09-2024 Erythrocyte distribution width (RBC) [Ratio] 12.6 % 11.6-14.6 [facility] Erythrocyte distribution wid th standard deviationOrdered By: [facility] Brook Brennan on 06-09-2024 Erythrocyte distribution width (RBC) [Ratio] 40.2 fl 35.1-43.9 [facility] FOLATES,SERUM (FOLIC ACID)on 06-09-2024 FOLATES,SERUM 13.70 ng/mL Normal 4.60-34.80 [facility] Comment on above: Order Comment: N Result Comment: Hemo lysis, Results will be affected, Requires Recollection. Performed By: #### L 506.1001, L501.9520, L506.0200, L503.0106, L500.4050, L500.4100, L100.0100 ####[facility] [address] [place], [address] Folate [Mass/Vol]Ordered By: [facility] Brook Brennan on 06-09-2024 Serum Folate 13.70 ng/mL 4.60-34.80 [facility] Comment on above: Hemolysis, Results w ill be affected, Requires Recollection. Folate [Mass/volume] in Seru m or PlasmaOrdered By: [facility] Brook Brennan on 06-09-2024 Folate [Mass/Vol] 13.70 ng/mL 4.60-34.80 [facility] Comment on above: Hemolysis, Results w ill be affected, Requires Recollection. GFR/1.73 sq M.predicted jame g non-blacks MDRD (S/P/Bld) [Vol rate/Area]Ordered By: [facility] Brook Brennan on 06-09-2024 Estimated GFR (MDRD) Non-Af Amer 57 Low >60 [facility] Comment on above: mL/min/1.73m2 CKD-EP I Creatinine Equation (2020) Glomerular filtration rate ( GFR) estimation/1.73 sq m using serum, plasma, or whole bOrdered By: [facility] Brook Brennan on 06-09-2024 GFR/1.73 sq M.predicted among non-blacks MDRD (S/P/Bld) [Vol rate/Area] 57 mL/min/{1.73_m2} Low >60 [facility] Comment on above: mL/min/1.73m2 CKD-EP I Creatinine Equation (2020) Hematocrit Auto (Bld) [Volum e fraction]Ordered By: [facility] Brook Brennan on 06-09-2024 Hematocrit (Bld) [Volume fraction] 42.4 % 37-47 [facility] Hemoglobin measurementOrdere d By: [facility] Brook Mika on 06-09-2024 Hemoglobin (Bld) [Mass/Vol] 14.6 g/dL 12.0-15.0 [facility] Immature granulocytes/100 WB C Auto (Bld)Ordered By: [facility] Brook Mika on 06-09-2024 Immature granulocytes/100 WBC (Bld) 0.300 % 0.0-0.9 [facility] Comment on above: IG% - Immature Granu locytes (promyelocytes, myelocytes and metamyelocytes) > 1% indicates that a LEFT SHIFT is Present. L503.0106on 06-09-2024 Cobalamin (Vitamin B12) [Mass/Vol] 1001 pg/mL High 180-914 [facility] Comment on above: Performed By: #### L 506.1001, L501.9520, L506.0200, L503.0106, L500.4050, L500.4100, L100.0100 ####[facility] [address] [place], [place], [id number] L506.1001on 06-09-2024 Vitamin D 25-OH 42.2 ng/mL Normal 30-100 [facility] Comment on above: Result Comment: Sarina min D Status Deficiency: <20 ng/mL (50nmol/L) Insufficiency: 20-30 ng/mL (50-75 nmol/L) Sufficiency: 30-100 ng/mL (75-250 nmol/L) Toxicity: >100 ng/mL (>250 nmol/L) Performed By: #### L 506.1001, L501.9520, L506.0200, L503.0106, L500.4050, L500.4100, L100.0100 ####[facility] [address] [place], [address] LDL calc ser/plasOrdered By: [facility] Brook Mika on 06-09-2024 Cholesterol in LDL [Mass/Vol] 187 mg/dL [facility] Comment on above: Ocnlxduvcs=888-580 m g/dL & Higher Cmff=637 mg/dL or greater LDL Cholesterol, Calculated 187 mg/dL [facility] Comment on above: Vloujgnwlo=354-041 m g/dL & Higher Rapw=979 mg/dL or greater Laboratory - Chemistry and C hemistry - challengeOrdered By: [facility] Brook Mika on 06-09-2024 AST [Catalytic activity/Vol] 21 U/L <32 [facility] Lipid Profileon 06-09-2024 CHOL:HDL 5.30 Normal [facility] Comment on above: Performed By: #### L 506.1001, L501.9520, L506.0200, L503.0106, L500.4050, L500.4100, L100.0100 ####[facility] [address] [place], [place], [phone]) Cholesterol [Mass/Vol] 291 mg/dL High <=200 [facility] Comment on above: Result Comment: Chol esterol level, Desirable <200 mg/dL Borderline high cholesterol 200-239 mg/dL High cholesterol >=240 mg/dL Recommendations of the NCEP Adult Treatment Panel for the following risk-cutoff thresholds for the [place] population. Performed By: #### L 506.1001, L501.9520, L506.0200, L503.0106, L500.4050, L500.4100, L100.0100 ####[facility] [address] [place], [place], [phone]) Cholesterol in HDL [Mass/Vol] 55 mg/dL Normal [facility] Comment on above: Result Comment: Cathie onal Cholesterol Education Program (NCEP) guidelines: <40 mg/dL: Low HDL-cholesterol (major risk factor for CHD) >= 60 mg/dL: High HDL-cholesterol (negative risk factor for CHD) HDL-cholesterol is affected by a number of factors, e.g. smoking, exercise, hormones, sex and age. Performed By: #### L 506.1001, L501.9520, L506.0200, L503.0106, L500.4050, L500.4100, L100.0100 ####[facility] [address] [place], [place], [id number] Cholesterol in LDL [Mass/Vol] 187 mg/dL Normal [facility] Comment on above: Result Comment: Bord etxqey=414-844 mg/dL Higher Kqbz=906 mg/dL or greater Performed By: #### L 506.1001, L501.9520, L506.0200, L503.0106, L500.4050, L500.4100, L100.0100 ####[facility] [address] [place], [place], [phone]) Cholesterol in VLDL [Mass/Vol] 49 mg/dL High 5-40 [facility] Comment on above: Performed By: #### L 506.1001, L501.9520, L506.0200, L503.0106, L500.4050, L500.4100, L100.0100 ####[facility] [address] [place], [address]21) Triglyceride [Mass/Vol] 246 mg/dL High [facility] Comment on above: Result Comment: The drugs N-Acetylcysteine and Metamizole may falsely depress this assay. Normal range: <150 mg/dL Borderline High: 150-199 mg/dL High: 200-499 mg/dL Very High: >500 mg/dL Performed By: #### L 506.1001, L501.9520, L506.0200, L503.0106, L500.4050, L500.4100, L100.0100 ####[facility] [address] [place], [place], [id number] Lymphocytes Auto (Unsp spec) [#/Vol]Ordered By: [facility] Brook Brennan on 06-09-2024 Lymphocytes (Bld) [#/Vol] 3.40 10*3/uL 0.83-4.51 [facility] Lymphocytes/100 WBC Auto (Un sp spec)Ordered By: [facility] Brook Brennan on 06-09-2024 Lymphocytes/100 WBC (Bld) 30.7 % 19-41 [facility] MCV (mean corpuscular volume ) determinationOrdered By: [facility] Brook Brennan on 06-09-2024 MCV (RBC) [Entitic vol] 87.6 fL 81-99 [facility] Mean corpuscular hemoglobin (MCH) determinationOrdered By: [facility] Brook Brennan on 06-09-2024 MCH (RBC) [Entitic mass] 30.2 pg 27.0-32.0 [facility] Mean corpuscular hemoglobin concentration (MCHC) determinationOrdered By: [facility] Brook Brennan on 06-09-2024 MCHC (RBC) [Mass/Vol] 34.4 g/dL 32-36 [facility] Mean platelet volume determi nationOrdered By: [facility] Brook Brennan on 06-09-2024 Platelet mean volume (Bld) [Entitic vol] 9.0 fL 6.2-12.0 [facility] Monocyte percentageOrdered B y: [facility] Brook Brennan on 06-09-2024 Monocytes/100 WBC (Bld) 8.2 % 0-10 [facility] Neutrophil percentageOrdered By: [facility] Brook Brennan on 06-09-2024 Neutrophils/100 WBC (Bld) 58.0 % 47-70 [facility] Nucleated red blood cell per centageOrdered By: [facility] Brook Brennan on 06-09-2024 Nucleated RBC/100 WBC (Bld) [Ratio] 0 % 0-5 [facility] Platelet countOrdered By: [facility] Brook Brennan on 06-09-2024 Platelets (Bld) [#/Vol] 305 10*3/uL 150-450 [facility] Potassium (Unsp spec) [Mass/ Vol]Ordered By: [facility] Brook Brennan on 06-09-2024 Potassium [Moles/Vol] 3.5 mmol/L 3.3-5.1 [facility] Potassium measurement (mass/ volume)Ordered By: [facility] Brook Brennan on 06-09-2024 Potassium (Unsp spec) [Mass/Vol] 3.5 mmol/L 3.3-5.1 [facility] RBC Auto (Bld) [#/Vol]Ordere d By: [facility] Brook Brennan on 06-09-2024 RBC (Bld) [#/Vol] 4.84 10*6/uL 4.2-5.4 [facility] Screening total cholesterol/ high density lipoprotein (HDL) cholesterol ratioOrdered By: [facility] Brook Brennan on 06-09-2024 Cholesterol.total/Cho lesterol in HDL [Mass ratio] 5.30 {ratio} [facility] Serum creatinine measurement (mass/volume)Ordered By: [facility] Brook Brennan on 06-09-2024 Creatinine [Mass/Vol] 1.07 mg/dL 0.70-1.20 [facility] Serum globulin measurementOr dered By: [facility] Brook Brennan on 06-09-2024 Globulin (S) [Mass/Vol] 3.3 g/dL 2.2-4.2 [facility] Serum glucose measurement (m ass/volume)Ordered By: [facility] Brook Brennan on 06-09-2024 Glucose [Mass/Vol] 101 mg/dL High 70-99 [facility] Serum or plasma alanine christian otransferase (ALT) measurementOrdered By: [facility] Brook Brennan on 06-09-2024 ALT [Catalytic activity/Vol] 14 U/L <35 [facility] Serum or plasma albumin spencer urement (mass/volume)Ordered By: [facility] Brook Brennan on 06-09-2024 Albumin [Mass/Vol] 4.6 g/dL 3.4-4.8 [facility] Serum or plasma albumin/glob ulin mass ratioOrdered By: [facility] Brook Brennan on 06-09-2024 Albumin/Globulin [Mass ratio] 1.4 {ratio} 0.9-2.4 [facility] Serum or plasma alkaline vladimir sphatase measurementOrdered By: [facility] Brook Brennan on 06-09-2024 ALP [Catalytic activity/Vol] 93 U/L 35-104 [facility] Serum or plasma calcium spencer urement (mass/volume)Ordered By: [facility] Brook Brennan on 06-09-2024 Calcium [Mass/Vol] 9.4 mg/dL 7.6-11.0 [facility] Serum or plasma cholesterol in HDL measurement (mass/volume)Ordered By: [facility] Brook Brennan on 06-09-2024 Cholesterol in HDL [Mass/Vol] 55 mg/dL >40 [facility] Comment on above: National Cholesterol Education Program (NCEP) guidelines:<40 mg/dL: Low HDL-cholesterol (major risk factor for CHD)>= 60 mg/dL: High HDL-cholesterol (negative risk factor for CHD)HDL-cholesterol is affected by a number of factors, e.g. smoking, exercise, hormones, sex and age. Serum or plasma cholesterol measurement (mass/volume)Ordered By: [facility] Brook Brennan on 06-09-2024 Cholesterol [Mass/Vol] 291 mg/dL High <201 [facility] Comment on above: Cholesterol level, D esirable <200 mg/dLBorderline high cholesterol 200-239 mg/dLHigh cholesterol >=240 mg/dLRecommendations of the NCEP Adult Treatment Panel for the following risk-cutoff thresholds for the [place] population. Serum or plasma urea nitroge n measurement (mass/volume)Ordered By: [facility] Brook Brennan on 06-09-2024 Urea nitrogen [Mass/Vol] 21 mg/dL High 4-19 [facility] Sodium levelOrdered By: [facility] Brook Brennan on 06-09-2024 Sodium [Moles/Vol] 138 mmol/L 133-145 [facility] TSH DL <= 0.005 mIU/L QnOrde red By: [facility] Brook Brennan on 06-09-2024 Thyroid Stimulating Hormone (TSH) 2.310 uIU/mL 0.300-4.20 0 [facility] TSH Qn 2.310 uIU/mL 0.300-4.20 0 [facility] Thyroid Stim Hormone (TSH)on 06-09-2024 TSH 2.310 uIU/mL Normal 0.300-4.20 0 [facility] Comment on above: Performed By: #### L 506.1001, L501.9520, L506.0200, L503.0106, L500.4050, L500.4100, L100.0100 ####[facility] [id number] [place], [address] Total proteinOrdered By: [facility] Brook Brennan on 06-09-2024 Protein [Mass/Vol] 7.9 g/dL 5.9-8.4 [facility] Triglycerides measurementOrd ered By: [facility] Brook Mika on 06-09-2024 Triglyceride [Mass/Vol] 246 mg/dL High <199 [facility] Comment on above: The drugs N-Acetylcy steine and Metamizole may falsely depress this assay. Normal range: <150 mg/dLBorderline High: 150-199 mg/dLHigh: 200-499 mg/dLVery High: >500 mg/dL Vitamin B12 ser/plasOrdered By: [facility] Brookpooja Brennan on 06-09-2024 Cobalamin (Vitamin B12) [Mass/Vol] 1001 pg/mL High 180-914 [facility] Vitamin D, 25-hydroxyOrdered By: [facility] Brook Mika on 06-09-2024 Vitamin D 25-Hydroxy 42.2 ng/mL 30-100 [facility] Comment on above: Vitamin D StatusDefi ciency: <20 ng/mL (50nmol/L)Insufficiency: 20-30 ng/mL (50-75 nmol/L)Sufficiency: 30-100 ng/mL (75-250 nmol/L)Toxicity: >100 ng/mL (>250 nmol/L) White blood cell (WBC) count Ordered By: [facility] Brook Mika on 06-09-2024 WBC (Bld) [#/Vol] 11.1 10*3/uL High 4.4-11.0 [facility] AST(SGOT)on 02-18-2024 AST [Catalytic activity/Vol] 17 U/L Normal 15-37 [facility] Comment on above: Performed By: #### L 501.4100, L501.4405 ####[facility] [address] [place], [place], [id number] Alanine Aminotransferas (SGP T)on 02-18-2024 ALT [Catalytic activity/Vol] 22 U/L Normal 13-56 [facility] Comment on above: Performed By: #### L 501.4100, L501.4405 ####[facility] [address] [place], [address] Laboratory - Chemistry and C hemistry - challengeOrdered By: Shahzad Pagan on 02-18-2024 AST [Catalytic activity/Vol] 17 U/L 15-37 [facility] Serum or plasma alanine christian otransferase (ALT) measurementOrdered By: Shahzad Pagan on 02-18-2024 ALT [Catalytic activity/Vol] 22 U/L 13-56 [facility] Cerebrospinal fluid Borrelia burgdorferi 18kd IgG antibody detection by immunoblotOrdered By: Brook Brennan on 03-20-2023 B. burgdorferi 18kD IgG IB Ql (CSF) Absent . [facility] Cerebrospinal fluid Borrelia burgdorferi 23kD IgG antibody detection by immunoblotOrdered By: Brook Brennan on 03-20-2023 B. burgdorferi 23kD IgG IB Ql (CSF) Absent . [facility] Cerebrospinal fluid Borrelia burgdorferi 23kD IgM antibody detection by immunoblotOrdered By: Brook Brennan on 03-20-2023 B. burgdorferi 23kD IgM IB Ql (CSF) Absent . [facility] Cerebrospinal fluid Borrelia burgdorferi 28kD IgG antibody detection by immunoblotOrdered By: Brook Brennan on 03-20-2023 B. burgdorferi 28kD IgG IB Ql (CSF) Absent . [facility] Cerebrospinal fluid Borrelia burgdorferi 39kD IgG antibody detection by immunoblotOrdered By: Brook Brennan on 03-20-2023 B. burgdorferi 39kD IgG IB Ql (CSF) Absent . [facility] Cerebrospinal fluid Borrelia burgdorferi 39kD IgM antibody detection by immunoblotOrdered By: Brook Brennan on 03-20-2023 B. burgdorferi 39kD IgM IB Ql (CSF) Absent . [facility] Cerebrospinal fluid Borrelia burgdorferi 41kD IgM antibody detection by immunoblotOrdered By: Brook Brennan on 03-20-2023 B. burgdorferi 41kD IgM IB Ql (CSF) Absent . [facility] Lyme disease 41 [place] rotein IgG antibody detectionOrdered By: Brook Brennan on 03-20-2023 B. burgdorferi 41kD IgG IB Ql (S) Absent . [facility] Lyme disease 66 [place] p rotein IgG antibody assayOrdered By: Brook Brennan on 03-20-2023 B. burgdorferi 66kD IgG IB Ql (S) Absent . [facility] No Panel InformationOrdered By: Brook Brennan on 03-20-2023 Lyme Disease IgG Ab 30 kDa Band Absent . [facility] Lyme Disease IgG Ab 93 kDa Band Absent . [facility] Lyme Disease IgG West Blot Interp Negative . [facility] Comment on above: Positive: 5 of the f ollowing Borrelia-specific bands: 18,23,28,30,39,41,45,58, 66, and 93. Negative: No bands or banding patterns which do not meet positive criteria. Lyme Disease IgM Ab (Western Blot) Negative . [facility] Comment on above: Note: An equivocal o r positive EIA result followed by anegative Line Blot result is considered NEGATIVE. Anequivocal or positive EIA result followed by a positiveLine Blot is considered POSITIVE by the CDC.Positive: 2 of the following bands: 23,39 or 41Negative: No bands or banding patterns which do not meetpositive criteria.Criteria for positivity are those recommended byCDC/ASTPHLD. p23=Osp C, j51=[id number]:Sera from individuals with the following may cross reactin the Lyme Line Blot assays: other spirochetal diseases(periodontal disease, leptospirosis, relapsing fever, yaws,and pinta); connective autoimmune (Rheumatoid Arthritis andSystemic Lupus Erythematosus and also individuals withAntinuclear Antibody); other infections (Master MountainSpotted Fever; Viktor-Calzada Virus, and Cytomegalovirus).Please Note: Lyme immunoblot alone is not recommended forthe diagnosis of Lyme disease. Current guidelines recommendthe use of a two-tiered approach to Lyme serology testingto improve the sensitivity and specificity of testing.[facility] offers test code 615102 Lyme Disease Serology withReflex to aid in the diagnosis of Lyme Disease.Performed at: [address] [id number] Director: Rose Fox MD, Phone: [phone] Synovial fluid Borrelia julia dorferi 45kD IgG antibody detection by immunoblotOrdered By: Brook Brennan on 03-20-2023 B. burgdorferi 45kD IgG IB Ql (Syn fld) Absent . [facility] Synovial fluid Borrelia julia dorferi 58kD IgG antibody detection by immunoblotOrdered By: Brook Brennan on 03-20-2023 B. burgdorferi 58kD IgG IB Ql (Syn fld) Absent . [facility] CCP ANTIBODY IGGon Cyclic citrullinated peptide IgG Qn 16 Units <[address] [facility] Cyclic citrullinated peptide IgG Qnon 03-15-2023 CCP Antibody IgG Qualitative Negative Negative [facility] CBC W Auto Differential pane l (Bld)on 03-14-2023 Basophils (Bld) [#/Vol] 0.09 10*3/uL <0.11 k/uL [facility] Basophils/100 WBC (Bld) 0.9 % [facility] Differential cell count method Nom (Bld) Auto [facility] Eosinophils (Bld) [#/Vol] 0.30 10*3/uL <0.46 k/uL [facility] Eosinophils/100 WBC (Bld) 2.9 % [facility] Erythrocyte distribution width (RBC) [Ratio] 13.2 % 11.5 - 15.0 % [facility] Hematocrit (Bld) [Volume fraction] 41.5 % 36.0 - 46.0 % [facility] Hemoglobin (Bld) [Mass/Vol] 13.7 g/dL 11.5 - 15.5 g/dL [facility] Immature granulocytes (Bld) [#/Vol] 0.04 10*3/uL <0.10 k/uL [facility] Immature granulocytes/100 WBC (Bld) 0.4 % [facility] Lymphocytes (Bld) [#/Vol] 3.35 10*3/uL 1.00 - 4.00 k/uL [facility] Lymphocytes/100 WBC (Bld) 31.9 % [facility] MCH (RBC) [Entitic mass] 28.8 pg 26.0 - 34.[address] [facility] MCHC (RBC) [Mass/Vol] 33.0 g/dL 30.5 - 36.0 g/dL [facility] MCV (RBC) [Entitic vol] 87.4 fL 80.0 - 100.[address] [facility] Monocytes (Bld) [#/Vol] 0.69 10*3/uL <0.87 k/uL [facility] Monocytes/100 WBC (Bld) 6.6 % [facility] Neutrophils (Bld) [#/Vol] 6.03 10*3/uL 1.45 - 7.50 k/uL [facility] Neutrophils/100 WBC (Bld) 57.3 % [facility] Nucleated RBC (Bld) [#/Vol] <0.01 k/uL [facility] Nucleated RBC/100 WBC (Bld) [Ratio] 0.0 /[address] [facility] Platelet mean volume (Bld) [Entitic vol] 9.4 fL 9.0 - 12.[address] [facility] Platelets (Bld) [#/Vol] 305 10*3/uL 150 - 400 k/uL [facility] RBC (Bld) [#/Vol] 4.75 10*6/uL 3.90 - 5.20 m/uL [facility] WBC (Bld) [#/Vol] 10.50 10*3/uL 3.70 - 11.00 k/uL [facility] Comprehensive metabolic 2000 panelon 03-14-2023 Albumin [Mass/Vol] 4.5 g/dL 3.9 - 4.9 g/dL [facility] ALP [Catalytic activity/Vol] 89 U/L 34 - 123 U/L [facility] ALT [Catalytic activity/Vol] 13 U/L 7 - 38 U/L [facility] Anion gap [Moles/Vol] 12 mmol/L 9 - 18 mmol/L [facility] AST [Catalytic activity/Vol] 22 U/L 13 - 35 U/L [facility] Bilirubin [Mass/Vol] 0.4 mg/dL 0.2 - 1 .3 mg/dL [facility] Calcium [Mass/Vol] 10.1 mg/dL 8.5 - 10. 2 mg/dL [facility] Chloride [Moles/Vol] 98 mmol/L 97 - 10 5 mmol/L [facility] CO2 [Moles/Vol] 29 mmol/L 22 - 30 mmol/L [facility] Creatinine [Mass/Vol] 0.78 mg/dL 0.58 - 0.96 mg/dL [facility] Estimated Glomerular Filtration Rate 84 mL/min/1.73m >=60 mL/min/1.[address] [facility] Glucose [Mass/Vol] 102 mg/dL High 74 - 99 mg/dL [facility] Potassium [Moles/Vol] 4.5 mmol/L 3.7 - 5.1 mmol/L [facility] Protein [Mass/Vol] 7.5 g/dL 6.3 - 8.0 g/dL [facility] Sodium [Moles/Vol] 139 mmol/L 136 - 144 mmol/L [facility] Urea nitrogen [Mass/Vol] 9 mg/dL 7 - 21 mg/dL [facility] No Panel Informationon 03-[address] [facility] RHEUMATOID FACTOR BLon 03-14 Rheumatoid factor Qn <16 IU/mL [facility] Absolute lymphocyte countOrd ered By: Stevenson Falcon on 02-04-2023 Lymphocytes Auto (Unsp spec) [#/Vol] 2.83 10*3/uL 0.83-4.51 [facility] Basophil percentageOrdered B y: Stevenson Falcon on 02-04-2023 Basophil percentage 0 SEEN /hpf 0-5 [facility] Basophils/100 WBC (Bld) 0.7 % 0-1 [facility] Chloride [Moles/Vol] 105 mmol/L 98-107 [facility] Eosinophils/100 WBC (Bld) 2.6 % 0-5 [facility] Glucose [Mass/Vol] 105 mg/dL 74-106 [facility] Comment on above: Fasting Glucose resu lt from 100 to 125 mg/dL suggests IMPAIRED HOMEOSTASIS per A.D.A. criteria. Neutrophils (Bld) [#/Vol] 6.8 10*3/uL 2.0-7.7 [facility] Neutrophils/100 WBC (Bld) 63.2 % 47-70 [facility] Potassium [Moles/Vol] 3.9 mmol/L 3.5-5.1 [facility] Sodium [Moles/Vol] 138 mmol/L 136-145 [facility] WBC (Bld) [#/Vol] 10.7 10*3/uL 4.4-11.0 [facility] Bilirubin Test strip Ql (U)O rdered By: Stevenson Falcon on 02-04-2023 Bilirubin Ql (U) Negative Negative [facility] Blood erythrocytes count (nu mber/volume)Ordered By: Stevenson Falcon on 02-04-2023 RBC (Bld) [#/Vol] 4.79 10*6/uL 4.2-5.4 [facility] Blood hemoglobin measurement (mass/volume)Ordered By: Stevenson Falcon on 02-04-2023 Hemoglobin (Bld) [Mass/Vol] 13.6 g/dL 12.0-15.0 [facility] Blood lymphocytes/100 leukoc ytesOrdered By: Stevenson Falcon on 02-04-2023 Lymphocytes/100 WBC (Bld) 26.4 % 19-41 [facility] Blood monocytes/100 leukocyt esOrdered By: Stevenson Falcon on 02-04-2023 Monocytes/100 WBC (Bld) 6.5 % 0-10 [facility] Blood platelet mean volumeOr dered By: Stevenson Falcon on 02-04-2023 Platelet mean volume (Bld) [Entitic vol] 9.5 fL 6.2-12.0 [facility] Determination of erythrocyte mean corpuscular volume (MCV)Ordered By: Stevenson Falcon on 02-04-2023 MCV (RBC) [Entitic vol] 88.1 fL 81-99 [facility] Hematocrit Auto (Bld) [Volum e fraction]Ordered By: Stevenson Falcon on 02-04-2023 Hematocrit (Bld) [Volume fraction] 42.2 % 37-47 [facility] INR in Blood by Coagulation assayOrdered By: Stevenson Falcon on 02-04-2023 INR Coag (Bld) [Relative time] 1.0 {INR} [facility] Influenza virus A and B and SARS-CoV-2 (COVID-19) Ag panel - Upper respiratory specimOrdered By: Stevenson Falcon on 02-04-2023 SARS-CoV-2 (COVID-19) RNA SUMAN+probe Ql (Resp) [facility] Ketones Test strip Ql (U)Ord ered By: Stevenson Falcon on 02-04-2023 Ketones Ql (U) Negative Negative [facility] Laboratory - Chemistry and C hemistry - challengeOrdered By: Stevenson Falcon on 02-04-2023 CO2 [Moles/Vol] 27.0 mmol/L 21.0-32.0 [facility] Natriuretic peptide B (Bld) [Mass/Vol] 433.7 pg/mL 0-100 [facility] Urea nitrogen/Creatinine [Mass ratio] 28.8 mg/mg 10-20 [facility] Laboratory - CoagulationOrde red By: Stevenson Falcon on 02-04-2023 aPTT Coag (Bld) [Time] 29.6 s 24.1-36.2 [facility] PT Coag (PPP) [Time] 12.9 s 11.7-14.9 [facility] Laboratory - Hematology and Cell countsOrdered By: Stevenson Falcon on 02-04-2023 Erythrocyte distribution width (RBC) [Entitic vol] 42.1 fL 35.1-43.9 [facility] Erythrocyte distribution width (RBC) [Ratio] 13.0 % 11.6-14.6 [facility] Immature granulocytes/100 WBC (Bld) 0.600 % 0.0-0.9 [facility] Comment on above: IG% - Immature Granu locytes (promyelocytes, myelocytes and metamyelocytes) > 1% indicates that a LEFT SHIFT is Present. MCH (RBC) [Entitic mass] 28.4 pg 27.0-32.0 [facility] Nucleated RBC/100 WBC (Bld) [Ratio] 0 % 0-5 [facility] MCHC Auto (RBC) [Mass/Vol]Or dered By: Stevenson Falcon on 02-04-2023 MCHC (RBC) [Mass/Vol] 32.2 g/dL 32-36 [facility] Mucus LM Ql (Urine sed)Order ed By: Stevenson Falcon on 02-04-2023 Mucus Ql (Urine sed) 0 SEEN /hpf [facility] Nitrite Test strip Ql (U)Ord ered By: Stevenson Falcon on 02-04-2023 Nitrite Ql (U) Negative Negative [facility] No Panel InformationOrdered By: Stevenson Falcon on 02-04-2023 Troponin I High Sensitivity 15 pg/mL 3.0-54.0 [facility] Comment on above: Please Note: New Nan t Units and Gender Specific Reference Ranges. For more information see Policy Stat Procedure [place] High Sensitivity Troponin (TNIH) and attachments. D-Dimer Quantitative (PE/DVT) 1.66 FEU/ug/m 0.27-0.49 [facility] Comment on above: D-Dimer ELEVATED (>0 .49): Additional studies and clinicalassessments are indicated to conclude diagnosis of:Deep Vein Thrombosis (DVT) or Pulmonary Embolism (PE)CRITICAL VALUE VERIFIED. CALLED TO [id number]/27/23 Cristy Pena.RESULTS READ BACK BY SAME . Estimated Creatinine Clearance Calc 51.81 ml/min [facility] Estimated GFR (MDRD) Amer 115 mL/min >60 [facility] Comment on above: GFR Calc Estimated GFR (MDRD) Non-Af Amer 95 mL/min >60 [facility] Comment on above: Non- GFR Calc Platelets bldOrdered By: Sujit Falcon on 02-04-2023 Platelets (Bld) [#/Vol] 281 10*3/uL 150-450 [facility] Protein Test strip Ql (U)Ord ered By: Stevenson Falcon on 02-04-2023 Protein Ql (U) Negative Negative [facility] Serum or plasma calcium spencer urement (mass/volume)Ordered By: Stevenson Falcon on 02-04-2023 Calcium [Mass/Vol] 9.0 mg/dL 8.5-10.1 [facility] Serum or plasma creatinine m easurement (mass/volume)Ordered By: Stevenson Falcon on 02-04-2023 Creatinine [Mass/Vol] 0.66 mg/dL 0.55-1.02 [facility] Comment on above: The validity of the calculated GFR & GFRAA in patients over 70 years has not been determined. Clinical correlation is essential. Serum or plasma urea nitroge n measurement (mass/volume)Ordered By: Stevenson Falcon on 02-04-2023 Urea nitrogen [Mass/Vol] 19 mg/dL 7-18 [facility] Squamous epithelial cells de tection in urine sediment by light microscopyOrdered By: Stevenson Falcon on 02-04-2023 Epithelial cells.squamous LM Ql (Urine sed) 0 SEEN /hpf 5-10 [facility] Thin prep Papanicolaou smear with manual screeningOrdered By: Stevenson Falcon on 02-04-2023 Thin prep Papanicolaou smear with manual screening 6 5-15 [facility] Upper respiratory specimen i nfluenza A virus, influenza B virus, and severe acute respiratory syndromOrdered By: Stevenson Falcon on 02-04-2023 Upper respiratory specimen influenza A virus, influenza B virus, and severe acute respiratory syndrom [facility] Urine blood detectionOrdered By: Stevenson Falcon on 02-04-2023 RBC Ql (U) 10 /ul Negative [facility] RBC Ql (U) 0 SEEN /hpf 0-5 [facility] Urine clarityOrdered By: Sujit Falcon on 02-04-2023 Clarity (U) Clear Clear [facility] Urine color determinationOrd ered By: Stevenson Falcon on 02-04-2023 Color (U) Yellow Yellow [facility] Urine glucose detectionOrder ed By: Stevenson Falcon on 02-04-2023 Glucose Ql (U) Normal mg/dl Normal [facility] Urine leukocyte esterase det ection by dipstickOrdered By: Stevenson Falcon on 02-04-2023 Leukocyte esterase Test strip Ql (U) Negative Negative [facility] Urine pHOrdered By: Stevenson Falcon on 02-04-2023 pH (U) 8.0 [pH] 5.0 - 8.0 [facility] Urine sediment bacteria coun t by microscopy (number/high power field)Ordered By: Stevenson Falcon on 02-04-2023 Bacteria LM.HPF (Urine sed) [#/Area] 0 /[HPF] None Seen [facility] Urine specific gravity measu rementOrdered By: Stevenson Falcon on 02-04-2023 Specific gravity (U) [Rel density] 1.010 1.002-1.03 0 [facility] Urobilinogen Auto test strip Ql (U)Ordered By: Stevenson Falcon on 02-04-2023 Urobilinogen Ql (U) Normal mg/dl Normal [facility] Absolute lymphocyte countOrd ered By: Brook Brennan on 01-25-2023 Lymphocytes Auto (Unsp spec) [#/Vol] 2.47 10*3/uL 0.83-4.51 [facility] Basophil percentageOrdered B y: Brook Brennan on 01-25-2023 Basophils/100 WBC (Bld) 0.7 % 0-1 [facility] Bilirubin [Mass/Vol] 0.50 mg/dL 0.20-1.00 [facility] Comment on above: For patients on eltr ombopag therapy, use of Dimension [place] TBIL is not recommended. Chloride [Moles/Vol] 104 mmol/L 98-107 [facility] Cholesterol [Mass/Vol] 230 mg/dL <200 [facility] Comment on above: <200 mg/dL Desirable 200-240 mg/dL Borderline >240 mg/dL High Risk Eosinophils/100 WBC (Bld) 3.3 % 0-5 [facility] Glucose [Mass/Vol] 111 mg/dL 74-106 [facility] Comment on above: Fasting Glucose resu lt from 100 to 125 mg/dL suggests IMPAIRED HOMEOSTASIS per A.D.A. criteria. Neutrophils (Bld) [#/Vol] 4.8 10*3/uL 2.0-7.7 [facility] Neutrophils/100 WBC (Bld) 57.6 % 47-70 [facility] Potassium [Moles/Vol] 4.3 mmol/L 3.5-5.1 [facility] Protein [Mass/Vol] 7.3 g/dL 6.4-8.2 [facility] Sodium [Moles/Vol] 139 mmol/L 136-145 [facility] Triglyceride [Mass/Vol] 152 mg/dL <199 [facility] Comment on above: The drugs N-Acetylcy steine and Metamizole may falsely depress this assay.Serum Triglycerides Reference Interval Normal <150 mg/dL Borderline high 150 - 199 mg/dL High 200 - 499 mg/dL Very High > or = 500 mg/dL WBC (Bld) [#/Vol] 8.4 10*3/uL 4.4-11.0 [facility] Blood erythrocytes count (nu mber/volume)Ordered By: Brook Brennan on 01-25-2023 RBC (Bld) [#/Vol] 4.80 10*6/uL 4.2-5.4 [facility] Blood hemoglobin measurement (mass/volume)Ordered By: Brook Brennan on 01-25-2023 Hemoglobin (Bld) [Mass/Vol] 13.6 g/dL 12.0-15.0 [facility] Blood lymphocytes/100 leukoc ytesOrdered By: Brook Brennan on 01-25-2023 Lymphocytes/100 WBC (Bld) 29.5 % 19-41 [facility] Blood monocytes/100 leukocyt esOrdered By: Brook Brennan on 01-25-2023 Monocytes/100 WBC (Bld) 8.4 % 0-10 [facility] Blood platelet mean volumeOr dered By: Brook Brennan on 01-25-2023 Platelet mean volume (Bld) [Entitic vol] 9.6 fL 6.2-12.0 [facility] Determination of erythrocyte mean corpuscular volume (MCV)Ordered By: Brook Brennan on 01-25-2023 MCV (RBC) [Entitic vol] 90.2 fL 81-99 [facility] Erythrocyte sedimentation ra teOrdered By: Brook Brennan on 01-25-2023 ESR (Bld) [Velocity] 7 mm/h 0-30 [facility] Hematocrit Auto (Bld) [Volum e fraction]Ordered By: Brook Brennan on 01-25-2023 Hematocrit (Bld) [Volume fraction] 43.3 % 37-47 [facility] Laboratory - Chemistry and C hemistry - challengeOrdered By: Brook Brennan on 01-25-2023 ALP [Catalytic activity/Vol] 78 U/L 45-117 [facility] ALT [Catalytic activity/Vol] 18 U/L 13-56 [facility] CO2 [Moles/Vol] 32.0 mmol/L 21.0-32.0 [facility] Globulin (S) [Mass/Vol] 3.5 g/dL 2.2-4.2 [facility] Magnesium [Mass/Vol] 2.6 mg/dL 1.6-2.6 [facility] Urea nitrogen/Creatinine [Mass ratio] 28.1 mg/mg 10-20 [facility] Laboratory - Hematology and Cell countsOrdered By: Brook Brennan on 01-25-2023 Erythrocyte distribution width (RBC) [Entitic vol] 43.0 fL 35.1-43.9 [facility] Erythrocyte distribution width (RBC) [Ratio] 13.1 % 11.6-14.6 [facility] Immature granulocytes/100 WBC (Bld) 0.500 % 0.0-0.9 [facility] Comment on above: IG% - Immature Granu locytes (promyelocytes, myelocytes and metamyelocytes) > 1% indicates that a LEFT SHIFT is Present. MCH (RBC) [Entitic mass] 28.3 pg 27.0-32.0 [facility] Nucleated RBC/100 WBC (Bld) [Ratio] 0 % 0-5 [facility] MCHC Auto (RBC) [Mass/Vol]Or dered By: Brook Brennan on 01-25-2023 MCHC (RBC) [Mass/Vol] 31.4 g/dL 32-36 [facility] No Panel InformationOrdered By: Brook Brennan on 01-25-2023 Anti-Nuclear Antibody Screen Negative Negative [facility] Comment on above: Performed at: [facility] [address] [id number] Director: Kingsley Schwartz PhD, Phone: [phone] C-Reactive Protein High Sensitivity 7.53 mg/L <3.00 [facility] Comment on above: Low Relative Risk of CVD <1.0 mg/L Average Relative Risk of CVD 1.0 - 3.0 mg/L High Relative Risk of CVD >3.0 mg/L Estimated GFR (MDRD) Amer 82 mL/min >60 [facility] Comment on above: GFR Calc Estimated GFR (MDRD) Non-Af Amer 67 mL/min >60 [facility] Comment on above: Non- GFR Calc Thyroid Stimulating Hormone (TSH) 2.50 uIU/mL 0.358-3.74 [facility] Platelets bldOrdered By: Shanika Brennan on 01-25-2023 Platelets (Bld) [#/Vol] 316 10*3/uL 150-450 [facility] Serum or plasma albumin spencer urement (mass/volume)Ordered By: Brook Brennan on 01-25-2023 Albumin [Mass/Vol] 3.8 g/dL 3.2-5.0 [facility] Serum or plasma albumin/glob ulin mass ratioOrdered By: Brook Brennan on 01-25-2023 Albumin/Globulin [Mass ratio] 1.1 {ratio} 0.9-2.4 [facility] Serum or plasma calcium spencer urement (mass/volume)Ordered By: Brook Brennan on 01-25-2023 Calcium [Mass/Vol] 9.3 mg/dL 8.5-10.1 [facility] Serum or plasma cholesterol in HDL measurement (mass/volume)Ordered By: Brook Brennan on 01-25-2023 Cholesterol in HDL [Mass/Vol] 51 mg/dL >40 [facility] Comment on above: The drugs N-Acetylcy steine and Metamizole may falsely depress this assay. Reference Range HDL <40 mg/dL Low HDL Cholesterol HDL >or= 60 mg/dL High HDL Cholesterol Serum or plasma cholesterol in VLDL measurement (mass/volume)Ordered By: Brook Brennan on 01-25-2023 Cholesterol in VLDL [Mass/Vol] 30 mg/dL 5-40 [facility] Serum or plasma creatinine m easurement (mass/volume)Ordered By: Brook Brennan on 01-25-2023 Creatinine [Mass/Vol] 0.89 mg/dL 0.55-1.02 [facility] Comment on above: The validity of the calculated GFR & GFRAA in patients over 70 years has not been determined. Clinical correlation is essential. Serum or plasma low density lipoprotein (LDL) cholesterol measurement (mass/volume)Ordered By: Brook Brennan on 01-25-2023 Cholesterol in LDL [Mass/Vol] 149 mg/dL 0-130 [facility] Serum or plasma urea nitroge n measurement (mass/volume)Ordered By: Brook Brennan on 01-25-2023 Urea nitrogen [Mass/Vol] 25 mg/dL 7-18 [facility] Serum rheumatoid factor dete ctionOrdered By: Brook Brennan on 01-25-2023 Rheumatoid factor Ql (S) < 10.0 IU/mL <15 [facility] Thin prep Papanicolaou smear with manual screeningOrdered By: Brook Brennan on 01-25-2023 Thin prep Papanicolaou smear with manual screening 13 U/L 15-37 [facility] Thin prep Papanicolaou smear with manual screening 3 5-15 [facility] Whole blood hemoglobin A1c/t otal hemoglobin ratio (mass fraction)Ordered By: Brook Brennan on 01-25-2023 HbA1c (Bld) [Mass fraction] 5.5 % 3.8-5.6 [facility] Comment on above: Normal < 5.7 % Predi abetic 5.7 - 6.4 % Diabetic >or= 6.5 % Please note range changes. Basophil percentageOrdered B y: JAYMIE BASHIR on 05-18-2022 Bilirubin [Mass/Vol] 0.60 mg/dL 0.20-1.00 [facility] Comment on above: For patients on eltr ombopag therapy, use of Dimension [place] TBIL is not recommended. Chloride [Moles/Vol] 102 mmol/L 98-107 [facility] Cholesterol [Mass/Vol] 151 mg/dL <200 [facility] Comment on above: <200 mg/dL Desirable 200-240 mg/dL Borderline >240 mg/dL High Risk Glucose [Mass/Vol] 105 mg/dL 74-106 [facility] Comment on above: Fasting Glucose resu lt from 100 to 125 mg/dL suggests IMPAIRED HOMEOSTASIS per A.D.A. criteria. Potassium [Moles/Vol] 3.8 mmol/L 3.5-5.1 [facility] Protein [Mass/Vol] 8.0 g/dL 6.4-8.2 [facility] Sodium [Moles/Vol] 138 mmol/L 136-145 [facility] Triglyceride [Mass/Vol] 128 mg/dL <199 [facility] Comment on above: The drugs N-Acetylcy steine and Metamizole may falsely depress this assay.Serum Triglycerides Reference Interval Normal <150 mg/dL Borderline high 150 - 199 mg/dL High 200 - 499 mg/dL Very High > or = 500 mg/dL WBC (Bld) [#/Vol] 9.0 10*3/uL 4.4-11.0 [facility] Blood erythrocytes count (nu mber/volume)Ordered By: JAYMIE BASHIR on 05-18-2022 RBC (Bld) [#/Vol] 4.92 10*6/uL 4.2-5.4 [facility] Blood hemoglobin measurement (mass/volume)Ordered By: JAYMIE BASHIR on 05-18-2022 Hemoglobin (Bld) [Mass/Vol] 14.3 g/dL 12.0-15.0 [facility] Blood platelet mean volumeOr dered By: JAYMIE BASHIR on 05-18-2022 Platelet mean volume (Bld) [Entitic vol] 9.8 fL 6.2-12.0 [facility] Determination of erythrocyte mean corpuscular volume (MCV)Ordered By: JAYMIE BASHIR on 05-18-2022 MCV (RBC) [Entitic vol] 86.6 fL 81-99 [facility] Hematocrit Auto (Bld) [Volum e fraction]Ordered By: JAYMIE BASHIR on 05-18-2022 Hematocrit (Bld) [Volume fraction] 42.6 % 37-47 [facility] Laboratory - Chemistry and C hemistry - challengeOrdered By: JAYMIE BASHIR on 05-18-2022 ALP [Catalytic activity/Vol] 75 U/L 45-117 [facility] ALT [Catalytic activity/Vol] 17 U/L 13-56 [facility] CO2 [Moles/Vol] 31.0 mmol/L 21.0-32.0 [facility] Globulin (S) [Mass/Vol] 3.7 g/dL 2.2-4.2 [facility] T4 [Mass/Vol] 9.6 ug/dL 4.8-13.9 [facility] Urea nitrogen/Creatinine [Mass ratio] 23.3 mg/mg 10-20 [facility] - Hematology and Cell countsOrdered By: JAYMIE BASHIR on 05-18-2022 Erythrocyte distribution width (RBC) [Entitic vol] 41.2 fL 35.1-43.9 [facility] Erythrocyte distribution width (RBC) [Ratio] 13.1 % 11.6-14.6 [facility] MCH (RBC) [Entitic mass] 29.1 pg 27.0-32.0 [facility] MCHC Auto (RBC) [Mass/Vol]Or dered By: JAYMIE BASHIR on 05-18-2022 MCHC (RBC) [Mass/Vol] 33.6 g/dL 32-36 [facility] No Panel InformationOrdered By: JAYMIE BASHIR on 05-18-2022 Estimated GFR (MDRD) Amer 81 mL/min >60 [facility] Comment on above: GFR Calc Estimated GFR (MDRD) Non-Af Amer 67 mL/min >60 [facility] Comment on above: Non- GFR Calc Thyroid Stimulating Hormone (TSH) 2.03 uIU/mL 0.358-3.74 [facility] Platelets bldOrdered By: LISA BASHIR on 05-18-2022 Platelets (Bld) [#/Vol] 287 10*3/uL 150-450 [facility] Serum or plasma albumin spencer urement (mass/volume)Ordered By: JAYMIE BASHIR on 05-18-2022 Albumin [Mass/Vol] 4.3 g/dL 3.2-5.0 [facility] Serum or plasma albumin/glob ulin mass ratioOrdered By: JAYMIE BASHIR on 05-18-2022 Albumin/Globulin [Mass ratio] 1.2 {ratio} 0.9-2.4 [facility] Serum or plasma calcium spencer urement (mass/volume)Ordered By: JAYMIE BASHIR on 05-18-2022 Calcium [Mass/Vol] 9.4 mg/dL 8.5-10.1 [facility] Serum or plasma cholesterol in HDL measurement (mass/volume)Ordered By: JAYMIE BASHIR on 05-18-2022 Cholesterol in HDL [Mass/Vol] 59 mg/dL >40 [facility] Comment on above: The drugs N-Acetylcy steine and Metamizole may falsely depress this assay. Reference Range HDL <40 mg/dL Low HDL Cholesterol HDL >or= 60 mg/dL High HDL Cholesterol Serum or plasma cholesterol in VLDL measurement (mass/volume)Ordered By: JAYMIE BASHIR on 05-18-2022 Cholesterol in VLDL [Mass/Vol] 26 mg/dL 5-40 [facility] Serum or plasma creatinine m easurement (mass/volume)Ordered By: JAYMIE BASHRI on 05-18-2022 Creatinine [Mass/Vol] 0.90 mg/dL 0.55-1.02 [facility] Comment on above: The validity of the calculated GFR & GFRAA in patients over 70 years has not been determined. Clinical correlation is essential. Serum or plasma low density lipoprotein (LDL) cholesterol measurement (mass/volume)Ordered By: JAYMIE BASHIR on 05-18-2022 Cholesterol in LDL [Mass/Vol] 66 mg/dL 0-130 [facility] Serum or plasma urea nitroge n measurement (mass/volume)Ordered By: JAYMIE BASHIR on 05-18-2022 Urea nitrogen [Mass/Vol] 21 mg/dL 7-18 [facility] Thin prep Papanicolaou smear with manual screeningOrdered By: JAYMIE BASHIR on 05-18-2022 Thin prep Papanicolaou smear with manual screening 19 U/L 15-37 [facility] Thin prep Papanicolaou smear with manual screening 5 5-15 [facility] Whole blood hemoglobin A1c/t otal hemoglobin ratio (mass fraction)Ordered By: JAYMIE BASHIR on 05-18-2022 HbA1c (Bld) [Mass fraction] 5.5 % 3.8-5.6 [facility] Comment on above: Normal < 5.7 % Predi abetic 5.7 - 6.4 % Diabetic >or= 6.5 % Please note range changes. CKon 04-25-2021 CK [Catalytic activity/Vol] 112 U/L Normal 42-[address] [facility] Comment on above: Performed By: #### L IPB, CK, MG1 #### [facility] Routine Lab [address] [place], [place] [address] Lipid Panel, Basicon 022 Cholesterol [Mass/Vol] 172 mg/dL Normal <[address] [facility] Comment on above: Performed By: #### L IPB, CK, MG1 #### [facility] Routine Lab [address] [place], [place] [address] Cholesterol in HDL [Mass/Vol] 63 mg/dL Normal >[address] [facility] Comment on above: Performed By: #### L IPB, CK, MG1 #### [facility] Routine Lab [address] [place], [place] [address] Cholesterol in LDL [Mass/Vol] 94 mg/dL Normal <[address] [facility] Comment on above: Performed By: #### L IPB, CK, MG1 #### [facility] Routine Lab [address] [place], [place] [address] Cholesterol in VLDL [Mass/Vol] 15 mg/dL Normal <[address] [facility] Comment on above: Performed By: #### L IPB, CK, MG1 #### [facility] Routine Lab [address] [place], [place] [address] Cholesterol non HDL [Mass/Vol] 109 mg/dL Normal <[address] [facility] Comment on above: Performed By: #### L IPB, CK, MG1 #### [facility] Routine Lab [address] [place], [place] [address] LDL:HDL Ratio 1.49 Normal <2.[address] [facility] Comment on above: Performed By: #### L IPB, CK, MG1 #### [facility] Routine Lab [address] [place], [place] [id number] TC:HDL Ratio 2.73 Normal <5.[address] [facility] Comment on above: Performed By: #### L IPB, CK, MG1 #### [facility] Routine Lab [address] [place], [place] [id number] Triglyceride [Mass/Vol] 77 mg/dL Normal <[address] [facility] Comment on above: Performed By: #### L IPB, CK, MG1 #### [facility] Routine Lab [address] [place], [place] [address] Magnesiumon 04-25-2021 Magnesium [Mass/Vol] 2.2 mg/dL Normal 1.7-2.3 [facility] Comment on above: Performed By: #### L IPB, CK, MG1 #### [facility] Routine Lab [address] [place], [place] [address] Lipid Panel, Basicon 022 Fasting Time UN Normal [facility] Comment on above: Performed By: #### L IPB, CK, MG1 #### [facility] Routine Lab [address] [place], [place] [id number] 09-19-2017 Hemoglobin A1c/Hemoglobin.total mass fraction (Bld) 5.6 % Normal 4.0-6.3 [facility] Comment on above: Performed By: #### [id number] ####ERIC Chemistry Manual [id number] [place] [address] MA Mamm Screen w/CAD if perf ormed bilaton 03-28-2017 MA Mamm Screen w/CAD if performed bilat Exam Date/Time:03/20/2017 09:06 ESTReason for Exam:CHEST PAIN WITH DIABETES MCCARTNEY HYPERLIPIDEMIA SCREENING;ScreeningReportBILA TERAL DIGITAL SCREENING MAMMOGRAMS WITH [employer] V2.1.3.1HISTORY: Screening.COMPARISON: 12/02/2015.FINDINGS: The breasts are fatty. The parenchyma is symmetrical. No spiculateddensity, clustered microcalcification, mass lesion, or architectural distortionis seen. There is no nipple retraction present. The skin thickness is normal.IMPRESSION:Fatty breasts.Stable breast parenchyma from prior studies.BI-RADS 2 - Benign, no evidence of malignancy. Normal interval followup isrecommended in 12 months.OVERALL ASSESSMENT- BENIGNA letter of notification will be sent to the patient regarding the results.Assessment / Recommendation: 2-1 Normal interval follow-upBreast density: Fatty DensityRecall interval: 012 months FINAL REPORT Dictated: 03/28/2017 5:26 pm Ryan Bailey MD KSigned (Electronic Signature): 03/28/2017 5:26 pmSigned by: Ryan Bailey MD Technologist: CECAssessment: BI-RADS Category 2-Benign findingRecommendation: Normal interval follow-up [facility] NM Myocardial Spect Multi Re st/Stresson 03-20-2017 NM Myocardial Spect Multi Rest/Stress Exam Date/Time:03/20/2017 11:51 ESTReason for Exam:CHEST PAIN WITH DIABETES MCCARTNEY HYPERLIPIDEMIA SCREENING ORD [facility] cardiac SPECT stress test with ejection fractionHistory: Chest pain.COMPARISON: NoneMethod: For the rest portion of the examination, the patient was injected IVwith 12.5 mCi [id number] and rest SPECT images were acquired.For the stress portion of the examination, the patient was given 0.4 mg ofLexiscan and then injected IV with 43.6 mCi Fevsgpihuu-51t-amsbskkiu and stressSPECT images were acquired.Findings: There is relatively normal accumulation of radiopharmaceuticalthroughout the myocardium on both rest and stress images with no evidence ofreversible changes. There is no left ventricular dilatation.The ejection fraction equals 58% with no focal wall motion abnormalities.IMPRESSION:No evidence of ischemia.Ejection fraction equals 58%. FINAL REPORT Dictated: 03/20/2017 2:26 pm Gera Henao MD GSigned (Electronic Signature): 03/20/2017 2:26 pmSigned by: Gera Henao MD Technologist: DEVIN [facility] Vital Signs Date Time Vital Sign Value Performing Clinician Holland costello 11-23-2024 11:30-0400 Body temperature 97.5 [degF] Brook Brennan [employer]OMOTIONS MANAGER-C Work Phone: 1(694)530-776130 [place] [address] 11-23-2024 11:30-0400 Diastolic blood pressure 84 mm[Hg] Brook Brennan [employer]OTIONS MANAGER-C Work Phone: 1(365)528-731530 [place] [address] 11-23-2024 11:30-0400 Heart rate 61 /min Brookfarida Brennan [employer]OMOTIONS MANAGER-C Work Phone: 5([phone])668-903730 [place] [address] 11-23-2024 11:30-0400 Respiratory rate 16 /min Brook Brennan [employer]OMOTIONS MANAGER-C Work Phone: [phone])034-245230 [place] [address] 11-23-2024 11:30-0400 SaO2% (BldA) [Mass fraction] 96 % Brook Brennan [employer]OMOTIONS MANAGER-C Work Phone: 7(483)442-202330 [place] [address] 11-23-2024 11:30-0400 Systolic blood pressure 150 mm[Hg] Brook Brennan [employer]OMOTIONS MANAGER-C Work Phone: 0(187)724-804430 [place] [address] 11-23-2024 10:40-0400 Body height 167.64 cm Brookfarida Brennan [employer]OMOTIONS MANAGER-C Work Phone: 6(761)462-450230 [place] [address] 11-23-2024 10:40-0400 Body mass index (BMI) [Ratio] 51.5 kg/m2 Brook Brennan [employer]OMOTIONS MANAGER-C Work Phone: 8(794)308-904430 [place] [address] 11-23-2024 10:40-0400 Body weight 144.7 kg Brook Brennan [employer]OMOTIONS MANAGER-C Work Phone: 7(220)881-646330 [place] [address] 10-21-2024 11:09-0400 Body weight 142.88 kg Brook Brennan [employer]OMOTIONS MANAGER-C Work Phone: 2(405)207-403530 [place] [address] 10-21-2024 11:09-0400 Diastolic blood pressure 72 mm[Hg] Brook Brennan [employer]OMOTIONS MANAGER-C Work Phone: 4(688)438-819430 [place] [address] 10-21-2024 11:09-0400 Heart rate 62 /min Brook Brennan [employer]OMOTIONS MANAGER-C Work Phone: 7(183)832-903830 [place] [address] 10-21-2024 11:09-0400 Respiratory rate 18 /min Brook Brennan [employer]OMOTIONS MANAGER-C Work Phone: 4(280)504-303930 [place] [address] 10-21-2024 11:09-0400 Systolic blood pressure 114 mm[Hg] Brook Brennan [employer]OMOTIONS MANAGER-C Work Phone: 9(783)991-752930 [place] [address] 10-06-2024 13:00-0400 Body height 167.64 cm Brook Brennan [employer]OMOTIONS MANAGER-C Work Phone: 8(937)354-996030 [place] [address] 10-06-2024 13:00-0400 Body mass index (BMI) [Ratio] 50.8 kg/m2 Brook Brennan [employer]OMOTIONS MANAGER-C Work Phone: 2(756)547-755730 [place] [address] 10-06-2024 13:00-0400 Body weight 142.88 kg Brook Brennan [employer]OMOTIONS MANAGER-C Work Phone: 6(077)119-952130 [place] [address] 10-06-2024 13:00-0400 Diastolic blood pressure 79 mm[Hg] Brook Brennan [employer]OMOTIONS MANAGER-C Work Phone: 3(488)932-681230 [place] [address] 10-06-2024 13:00-0400 Heart rate 58 /min Brook Brennan [employer]OMOTIONS MANAGER-C Work Phone: [phone](018)528-392230 [place] [address] 10-06-2024 13:00-0400 Respiratory rate 18 /min Brook Brennan [employer]OMOTIONS MANAGER-C Work Phone: 5(696)737-305730 [place] [address] 10-06-2024 13:00-0400 SaO2% (BldA) [Mass fraction] 94 % Brook Brennan [employer]OMOTIONS MANAGER-C Work Phone: 8(683)617-090330 [place] [address] 10-06-2024 13:00-0400 Systolic blood pressure 133 mm[Hg] Brook Brennan PROMOTIONS MANAGER-C Work Phone: 6(529)370-337330 [place] [address] 08-25-2024 13:30-0400 Diastolic blood pressure 70 mm[Hg] Brook Brennan [employer]OMOTIONS MANAGER-C Work Phone: 1(308)438-037430 [place] [address] 08-25-2024 13:30-0400 Systolic blood pressure 138 mm[Hg] Brook Brennan [employer]OMOTIONS MANAGER-C Work Phone: 6(383)692-809630 [place] [address] 08-25-2024 07:11-0400 Body height 167.64 cm Brook Brennan PROMOTIONS MANAGER-C Work Phone: [facility] 08-25-2024 07:11-0400 Body mass index (BMI) [Ratio] 51.3 kg/m2 Brook Brennan [employer]OMOTIONS MANAGER-C Work Phone: [facility] 08-25-2024 07:11-0400 Body weight 144.24 kg Brook Brennan PROMOTIONS MANAGER-C Work Phone: [facility] 08-25-2024 07:11-0400 Diastolic blood pressure 98 mm[Hg] Brook Brennan [employer]OMOTIONS MANAGER-C Work Phone: 1(915)569-499953 [place] [address] 08-25-2024 07:11-0400 Heart rate 68 /min Brook Brennan [employer]OMOTIONS MANAGER-C Work Phone: [phone])444-745953 [place] [address] 08-25-2024 07:11-0400 Respiratory rate 18 /min Brook Brennan [employer]OMOTIONS MANAGER-C Work Phone: 2(770)400-354353 [place] [address] 08-25-2024 07:11-0400 SaO2% (BldA) [Mass fraction] 94 % Brook Brennan [employer]OMOTIONS MANAGER-C Work Phone: [phone])196-657653 [place] [address] 08-25-2024 07:11-0400 Systolic blood pressure 162 mm[Hg] Brook Brennan PROMOTIONS MANAGER-C Work Phone: [facility] 03-14-2023 11:14-0500 Body weight 138.71 kg Charlene Villalta MD Work Phone: [facility] 03-14-2023 11:14-0500 Diastolic blood pressure 73 mm[Hg] Charlene Villalta MD Work Phone: [facility] 03-14-2023 11:14-0500 Heart rate 59 /min Charlene Villalta MD Work Phone: [facility] 03-14-2023 11:14-0500 Systolic blood pressure 161 mm[Hg] Charlene Villalta MD Work Phone: [facility] 03-13-2023 10:54-0500 Body height 167.64 cm [facility] Work Phone: 6(899)168-295853 [place] [address] 03-13-2023 10:54-0500 Body mass index (BMI) [Ratio] 49.5 kg/m2 [facility] Work Phone: 3(377)379-703330 [place] [address] 03-13-2023 10:54-0500 Body weight 139.25 kg [facility] Work Phone: 0(172)396-388530 [place] [address] 03-13-2023 10:54-0500 Diastolic blood pressure 90 mm[Hg] [facility] Work Phone: 7(090)003-530330 [place] [address] 03-13-2023 10:54-0500 Heart rate 62 /min [facility] Work Phone: [phone](265)561-272030 [place] [address] 03-13-2023 10:54-0500 Respiratory rate 16 /min [facility] Work Phone: 0(565)[phone] [place] [address] 03-13-2023 10:54-0500 Systolic blood pressure 189 mm[Hg] [facility] Work Phone: 2(605)936-157053 [place] [address] 02-04-2023 20:13-0500 Diastolic blood pressure 95 mm[Hg] [facility] 02-04-2023 20:13-0500 Systolic blood pressure 202 mm[Hg] [facility] 02-04-2023 19:47-0500 Heart rate 64 /min [facility] 02-04-2023 19:47-0500 Respiratory rate 21 /min [facility] 02-04-2023 19:47-0500 SaO2% (BldA) [Mass fraction] 97 % [facility] 02-04-2023 14:32-0500 Body height 167.64 cm [facility] 02-04-2023 14:32-0500 Body mass index (BMI) [Ratio] 51.3 kg/m2 [facility] 02-04-2023 14:32-0500 Body temperature 97.2 [degF] [facility] 02-04-2023 14:32-0500 Body weight 144.42 kg [facility] Encounters Encounter Date Encounter Type Care Provider Facility [facility]: [facility] Start: 12-08-2024 End: 12-08-2024 ambulatory Brook Brennan PROMOTIONS MANAGER-C Work Phone: -Cat Scan [facility] Start: 12-08-2024 End: 12-08-2024 Patient encounter procedure Laurel Newell PROMOTIONS MANAGER-C -Cat Scan [facility] Work Phone: Start: 12-08-2024 End: 12-08-[facility] Start: 11-23-2024 End: 11-23-2024 Admission to same day surgery center Dr. Compa Bangura MD [facility] Start: 11-23-2024 End: 11-23-2024 ambulatory Brook Brennan PROMOTIONS MANAGER-C Work Phone: -[facility] Start: 11-05-2024 End: 11-05-2024 ambulatory Brook Brennan PROMOTIONS MANAGER-C Work Phone: -Laboratory Start: 11-05-2024 End: 11-05-2024 Patient encounter procedure Emery Lira PA -Laboratory Work Phone: Start: 11-05-2024 End: 11-05-2024 ambulatory [facility] Facility:[facility] Start: 10-21-2024 End: 10-21-[address] Mitch Perez MD -[facility] Work Phone: Start: 10-21-2024 End: 10-21-2024 ambulatory Brook Brennan PROMOTIONS MANAGER-C Work Phone: -[facility] Start: 10-08-2024 Non-patient / Non-visit Dr. Cuauhtemoc moreno MD -[facility] Start: 10-08-2024 End: 10-08-2024 ambulatory Brook Brennan PROMOTIONS MANAGER-C Work Phone: -Cardiovascular Services Start: 10-08-2024 End: 10-08-2024 Patient encounter procedure Emery Lira PA -Cardiovascular Services Work Phone: Start: 10-08-2024 End: 10-08-2024 ambulatory [facility] Facility:[facility] Start: 10-06-2024 End: 10-06-2024 ambulatory Brook Brennan PROMOTIONS MANAGER-C Work Phone: -Laboratory Start: 10-06-2024 End: 10-06-2024 Patient encounter procedure Emery Radhamesmalika PA -Laboratory Work Phone: Start: 10-06-2024 End: 10-06-2024 Patient encounter procedure Emery Lira PA -[facility] Work Phone: Start: 10-06-2024 End: 10-06-2024 ambulatory Brook Brennan PROMOTIONS MANAGER-C Work Phone: -[facility] Start: 10-06-2024 End: 10-06-2024 ambulatory Brook Mika [facility] Facility:[facility] Start: 09-03-[facility] Start: 08-28-2024 Non-patient / Non-visit [facility] Start: 08-28-2024 End: 08-28-2024 ambulatory Brook Brennan PROMOTIONS MANAGER-C Work Phone: -Cardiovascular Services Start: 08-28-2024 End: 08-28-2024 Patient encounter procedure Emery Radhamesmalika PA -Cardiovascular Services Work Phone: Start: 08-28-2024 End: 08-28-2024 ambulatory Brook Mika [facility] Facility:[facility] Start: 08-25-2024 End: 08-25-2024 Patient encounter procedure Emery Radhamesmalika PA -[facility] Work Phone: Start: 08-25-2024 End: 08-25-2024 ambulatory Brook Brennan PROMOTIONS MANAGER-C Work Phone: [facility] Work Phone: Start: 08-06-2024 End: 08-06-2024 ambulatory Brook Brennan PROMOTIONS MANAGER-C Work Phone: [facility] Work Phone: Start: 08-06-2024 End: 08-06-2024 Patient encounter procedure Laurel Newell PROMOTIONS MANAGER-C -Laboratory [facility] Start: 08-06-2024 End: 08-06-2024 ambulatory Brookpooja Brennan [facility] Facility:[facility] Start: 06-09-2024 End: 06-09-2024 ambulatory Brook Mika PROMOTIONS MANAGER-C Work Phone: [facility] Work Phone: Start: 06-09-2024 End: 06-09-2024 Patient encounter procedure [facility] Brook Brennan PROMOTIONS MANAGER-C -Laboratory, Mary Tsai Start: 06-09-2024 End: 06-09-2024 ambulatory [facility] Facility:[facility] Start: 02-18-2024 End: 02-18-[address] Shahzad Pagan DPM -Laboratory Work Phone: Start: 02-18-2024 End: 02-18-2024 ambulatory [facility] Facility:[facility] Start: 05-01-2023 Orders Only Charlene briones MD Work Phone: Rheumatology Comment on above: Pain in joint, multi ple sites (Primary Dx); Other chronic pain; Malaise and fatigue Start: 04-30-2023 End: 04-30-2023 ambulatory Brookpooja Jauregui PT [facility] Comment on above: Bilateral shoulder p ain, unspecified chronicity (Primary Dx); Trochanteric bursitis of left hip; Trochanteric bursitis of right hip; Pain in joint, multiple sites Start: 04-29-2023 Non-patient / Non-visit [facility] Work Phone: [facility] Start: 04-29-2023 End: 04-29-[address] [facility] Work Phone: [facility] Work Phone: Start: 04-29-2023 End: 04-29-2023 Patient encounter procedure [facility] Work Phone: [facility]-Cardiovascular Services Work Phone: Start: 04-16-2023 ambulatory Charlene briones MD Work Phone: Rheumatology Comment on above: Continued pain Start: 03-20-2023 End: 03-20-[address] [facility] Work Phone: [facility] Work Phone: Start: 03-20-2023 End: 03-20-2023 Patient encounter procedure [facility] Work Phone: [facility]-Laboratory Work Phone: Start: 03-14-2023 End: 03-14-2023 Patient encounter procedure Charlene Villalta MD Work Phone: Rheumatology Comment on above: Bilateral shoulder p ain, unspecified chronicity (Primary Dx); Trochanteric bursitis of left hip; Trochanteric bursitis of right hip; History of atrial fibrillation; Anticoagulated; Pain in joint, multiple sites; Rash and nonspecific skin eruption Start: 03-13-2023 End: 03-13-2023 Patient encounter procedure [facility] Work Phone: [facility] Work Phone: Start: 03-01-2023 Non-patient / Non-visit [facility] Work Phone: [facility] Start: 03-01-2023 End: 03-01-[address] [facility] Work Phone: [facility] Work Phone: Start: 03-01-2023 End: 03-01-2023 Patient encounter procedure [facility] Work Phone: [facility]-Cardiovascular Services Work Phone: Start: 02-07-2023 End: 02-07-2023 ambulatory [facility] Work Phone: Start: 02-07-2023 End: 02-07-2023 Patient encounter procedure [facility]-Pulmonary Services/Neurology Work Phone: Start: 02-04-2023 End: 02-04-2023 Emergency department patient visit [facility]-Emergency Department Work Phone: Start: 01-25-2023 End: 01-25-2023 Patient encounter procedure [facility]-Laboratory Work Phone: Start: 05-18-2022 End: 05-18-2022 ambulatory [facility] Work Phone: Start: 05-18-2022 End: 05-18-2022 Patient encounter procedure [facility]-Laboratory Start: 09-19-2017 End: 09-20-2017 Patient encounter [facility] Facility:[facility] Start: 09-19-2017 Patient encounter Facil [id number] Start: 07-05-2017 End: 07-05-2017 Patient encounter Jaymie David [place] Facility:[facility] Start: 05-06-2017 Ambulatory [facility] Start: 05-02-2017 End: 05-03-2017 Patient encounter Jaymie David [facility] Start: 04-18-2017 End: 04-18-2017 [facility] Start: 03-20-2017 End: 03-21-2017 Patient encounter Jaymie David [facility] Start: 03-06-2017 End: 03-07-2017 Patient encounter Jaymie David [facility] Procedures Date Procedure Procedure Detail Performing Clinician Start: 12-08-2024 CT of thorax with contrast Brook Brennan NP-C Work Phone: Start: 11-23-2024 Shoulder injection Nancie Brennan PROMOTIONS MANAGER-C Work Phone: Start: 11-23-2024 Fluoroscopy guided i njection of cervical spinal nerve root Brook Brennan NP-C Work Phone: Start: 11-23-2024 Plain X-ray of shoulder Brook Brennan PROMOTIONS MANAGER-C Work Phone: Start: 10-08-2024 X-ray of cervical spine Brook Brennan NP-C Work Phone: Start: 10-08-2024 End: 10-08-2024 Plain X-ray of shoulder Brook Brennan PROMOTIONS MANAGER-C Work Phone: Start: 10-08-2024 End: 10-08-2024 X-ray of knee, four or more views Brook Brennan PROMOTIONS MANAGER-C Work Phone: Start: 10-06-2024 D-dimer assay, quantitative Brook Brennan PROMOTIONS MANAGER-C Work Phone: Comment on above: D-Dimer ELEVATED (>0 .49): Additional studies and clinicalassessments are indicated to conclude diagnosis of:Deep Vein Thrombosis (DVT) or Pulmonary Embolism (PE)CRITICAL VALUE CALLED TO STEVAN AUGUSTIN10/06/24 1510 Sandie Rothman.RESULTS READ BACK BY SAME. Start: 08-06-2024 X-ray of chest, PA a nd lateral views Brook Brennan PROMOTIONS MANAGER-C Work Phone: Start: 08-06-2024 D-dimer assay, quantitative Brook Brennan PROMOTIONS MANAGER-C Work Phone: Comment on above: D-Dimer ELEVATED (>0 .49): Additional studies and clinicalassessments are indicated to conclude diagnosis of:Deep Vein Thrombosis (DVT) or Pulmonary Embolism (PE)CRITICAL VALUE CALLED TO Skip VIDAL08/06/24 1506 Khushboo Allred.RESULTS READ BACK BY SAME. Start: 06-09-2024 Vitamin D, 25-hydrox y measurement Brook Brennan NP-C Work Phone: Comment on above: Vitamin D StatusDefi ciency: <20 ng/mL (50nmol/L)Insufficiency: 20-30 ng/mL (50-75 nmol/L)Sufficiency: 30-100 ng/mL (75-250 nmol/L)Toxicity: >100 ng/mL (>250 nmol/L) Start: 03-01-2023 Cardiovascular stres s test using pharmacologic stress agent [facility] Work Phone: Start: 02-04-2023 CT angiography of ch est with contrast Start: 02-04-2023 SARS-CoV-2 & FLU Ant igen (Rapid) Start: 02-04-2023 Viral antigen assay [facility] Work Phone: Plan of Treatment Date Care Activity Detail Author Start: 03-14-2026 Diabetes Screening Diabetes Screenin g [facility] Start: 11-23-2024 Arthrocentesis aspir &/inj major jt/bursa w/us DRAIN/INJ JOINT/BURSA W/US [facility] Start: 11-23-2024 Fluoroscopy guided injection of cervical spinal nerve root [facility] Start: 11-23-2024 Plain X-ray of shoulder Shoulder One [facility] Start: 11-23-2024 Patient discharge [facility] Start: 04-18-2023 End: 07-18-2023 Erythrocyte sedimentation rate SED RATE [facility]STERGR[facility] Lab Routine Pain in joint, multiple sites Expected: 04/18/2023, Expires: 07/18/2023 [facility] Work Phone: Comment on above: Expected: 04/18/2023 , Expires: 07/18/2023 Start: 03-11-2023 Advance Directive Discussion Advance Directive Discussion [facility] Start: 03-11-2023 Depression Assessment Depression Ass essment [facility] Start: 02-04-2023 [facility] Start: 11-09-2022 Influenza vaccination Influenza Vacc ine (#1) [facility] Start: 2021 Pneumococcal Vaccine : 65+ (1 of 1 - PCV) Pneumococcal Vaccine: 65+ (1 of 1 - PCV) [facility] Start: 2021 Screening for osteoporosis Bone Dens ity Screening [facility] Start: 2016 RSV Vaccine (1 - 1-d ose 60+ series) RSV Vaccine (1 - 1-dose 60+ series) [facility] Start: 2006 Shingrix Vaccine (1 of 2) Brennan grix Vaccine (1 of 2) [facility] Start: 2001 Lipid panel Lipid Screening [facility] Start: 2001 Screening for malign ant neoplasm of colon [facility] Start: 1996 Screening for malign ant neoplasm of breast Mammogram Screening [facility] Start: 12-29-1975 Urine microalbumin profile DTa P,Tdap,Td Vaccine (1 - Tdap) [facility] Start: 1974 Hepatitis C screening Hepatitis C Nm noé [facility] Start: 06-28-1957 Covid-19 Vaccine (#1) Covid-19 Vacci ne (#1) [facility] Basic metabolic 2007 panel with ionized calcium - Serum or Plasma [facility] Basic metabolic 2007 panel with ionized calcium - Serum or Plasma [facility] D-dimer assay, quantitative [facility] Hepatic function panel [facility] Lipid 1996 panel - S gonzalo or Plasma [facility] Patient Education Controlling Hi gh Blood Pressure ED Dyspnea [facility] Work Phone: Patient referral [facility] Work Phone: Stress echocardiography [facility] Payers Date Payer Category Payer Private Health Insurance [id number] 2024 Self-pay [id number] 2022 Medicare HUMANA MEDICARE HUMANA GOLD PLUS [id number] 2022-Present [phone] [address] [address] [place] [address] HMO [id number] 2017 Private Health Insurance Private Health Insurance [id number] Unknown [facility] [id number] Unknown [id number] Unknown [id number] .462 Unknown [id number] .462 Unknown [id number] .462 Unknown [id number] .462 Unknown [id number] .462 Unknown [id number] 2.16.840.1.240867.3.579.2 .462 Unknown [id number] 2.16.840.1.094741.3.579.2 .462 Unknown [id number] [id number] .462 Unknown [id number] 2.16.840.1.174095.3.579.2 .462 Unknown [id number] 2.16.840.1.341899.3.579.2 .462 Unknown [id number] 2.16.840.1.822827.3.579.2 .462 Unknown [id number] 2.16.840.1.653133.3.579.2 .462 Unknown [id number] 2.16.840.1.626257.3.579.2 .462 Unknown [id number] 2.16.840.1.517018.3.579.2 .462 Unknown [id number] [id number] .462 Social History Date Type Detail Facility Tobacco smoking stat [facility] Unknown if ever smoked [facility] Work Phone: Start: 1955 Sex Assigned At Female [facility] Start: 02-04-2023 End: 03-13-2023 Tobacco smoking status FLIS Unknown if ever smoked [facility] Start: 03-14-2023 End: 11-17-2024 Tobacco smoking status NHIS Ex-smoker [facility] End: 03-11-2002 History of tobacco use Current smoker [facility] End: 03-11-2002 History of tobacco use Cigarette Smoker [facility] Start: 03-14-2023 Tobacco use and exposure Smokeless tobacco non-user [facility] Start: 03-14-2023 History of Social function [facility] Start: 03-14-2023 Tobacco use panel [facility] National Score (1-100), lower number is lower risk [address] [facility] Start: 1955 Sex Assigned At Not on file [facility] Start: 06-15-2024 Sex Female (finding) [facility] Goals Date Patient Goal Desired Activity /State Mental Status Date Assessment Result Facility 11-23-2024 Cognitive function Voice/Name [facility] Work Phone: Clinical Notes 03-14-2023 to 12-08-2024 Note Date & Type Note Facility 12-08-2024 Radiology Diagnostic study note [facility] Imaging Services [address] [place] [address] Chest WITH Contrast MR#: [id number] Acct: [id number] Name: XIMENA PINO Rep #: [id number] : 1955 F 68 From: Sandeep Waldrop MD PCP: SIERRA Sandoval, PROMOTIONS MANAGER-C Status: REG CLI Study:Chest WITH Contrast Date of Exam: 12/08/24 Exam# [id number] Ordering Dr: Laurel Newell PROMOTIONS MANAGER-C PROCEDURE: CT CHEST WITH CONTRAST 12/08/2024 REASON FOR EXAM: SOB, ABNORMAL COAGULATION PROFILE TECHNIQUE: Procedure Code: CTCHW Modality: CT Procedure: CHEST WITH CONTRAST Coronal and Sagittal reconstruction series were provided. CONTRAST: Isovue 300 VOLUME: 98 mL One or more dose reduction techniques were used (e.g., Automated exposure control, adjustment of the mA and/or kV according to patient size, use of iterative reconstruction technique). RADIATION DOSE SUMMARY: DLP: 706.47 mGycm COMPARISON: 02/04/2023 FINDINGS: LUNGS/PLEURA: Clear. No airspace consolidation or findings of pulmonary edema. No pneumothorax or pleural effusion. Patent central airways. Fat containing right Bochdalek hernia. MEDIASTINUM: No lymphadenopathy. Benign granulomatous calcifications. HEART: Normal in size. No pericardial effusion. Mild aortic root and coronary artery calcification. No central pulmonary arterial emboli identified. THORACIC AORTA: Normal caliber. No aneurysm or dissection. Mild atherosclerotic disease. UPPER ABDOMEN: No significant abnormality. Multiple splenic calcified granulomas. BONES: Degenerative changes of the spine with DISH, and bilateral glenohumeral arthrosis. CT/Chest WITH Contrast IMPRESSION: No acute intrathoracic abnormality. Clear lungs and pleura. Reading Location: [id number] CC: PANCHITO Newell; [facility] PROMOTIONS MANAGER-Lou Brennan ~ Data Migration Lead: Signed [facility] 11-23-2024 Consult note [facility] 11-23-2024 Consult note [facility] 11-23-2024 Procedure note [facility] 11-23-2024 Consult note [facility] 10-10-2024 Radiology Diagnostic study note [facility] Imaging Services [address] [place] [address] Cerv Spine Obl/Flex/Ext Comp MR#: [id number] Acct: [id number] Name: XIMENA PINO Rep #: [id number] : 1955 F 68 From: Sonya Falcon MD PCP: SIERRA Sandoval, PROMOTIONS MANAGER-C Status: REG CLI Study:Cerv Spine Obl/Flex/Ext Comp Date of Ex am: 10/08/24 Exam# [id number] Ordering Dr: Destinee Padilla EXAM: XR Cervical Spine, 6 or More Views CLINICAL INDICATION: NECK PAIN TECHNIQUE: Frontal, lateral, oblique and flexion/extension views of the cervical spine. COMPARISON: No relevant prior studies available. FINDINGS: VERTEBRAE: Degenerative facet arthropathy throughout the cervical spine. Normal alignment. No fracture or significant dynamic instability. DISC SPACES: Degenerative disc disease throughout the cervical spine. SOFT TISSUES: Unremarkable. RAD/Cerv Spine Obl/Flex/Ext Comp IMPRESSION: 1. No fracture or significant dynamic instability. 2. Degenerative changes of the cervical spine as described. Reading Location: [id number] CC: [facility] PANCHITO Brennan; Destinee Padilla ~ Data Migration Lead: Signed [facility] 10-09-2024 Radiology Diagnostic study note [facility] Imaging Services [address] [facility] [place], [place] [id number] Knee 4 or More Views MR#: [id number] Acct: [id number] Name: XIMENA PINO Rep #: [id number] : 1955 F 68 From: Olivia Carver MD PCP: SIERRA Sandoval, PROMOTIONS MANAGER-C Status: REG CLI Study:Knee 4 or More Views Date of Exam: 10/08/24 Exam# [id number] Ordering Dr: Destinee Padilla PROCEDURE: KNEE 4 OR MORE VIEWS 10/08/2024 REASON FOR EXAM: KNEE PAIN TECHNIQUE: KNEE 4 OR MORE VIEWS COMPARISON: 03/20/2019 FINDINGS: Severe medial femorotibial joint space narrowing, osteophytes. Severe lateral patellofemoral joint space narrowing, large osteophytes. Varus angulation. No acute bone or soft tissue pathology. RAD/Knee 4 or More Views IMPRESSION: Severe right knee osteoarthritis. Reading Location: [facility] CC: [facility] PROMOTIONS MANAGER-C Brook Brennan; Destinee Padilla ~ Data Migration Lead: Signed [facility] 10-09-2024 Radiology Diagnostic study note [facility] Imaging Services [address] [place] [address] Knee 4 or More Views MR#: [id number] Acct: [id number] Name: XIMENA PINO Rep #: [id number] : 1955 F 68 From: Olivia Carver MD PCP: SIERRA Sandoval, PROMOTIONS MANAGER-C Status: REG CLI Study:Knee 4 or More Views Date of Exam: 10/08/24 Exam# [id number] Ordering Dr: Destinee Padilla PROCEDURE: KNEE 4 OR MORE VIEWS 10/08/2024 REASON FOR EXAM: KNEE PAIN TECHNIQUE: KNEE 4 OR MORE VIEWS COMPARISON: 03/20/2019 FINDINGS: Severe medial femorotibial joint space narrowing, subchondral sclerosis, osteophytes. No acute bone or soft tissue pathology. RAD/Knee 4 or More Views IMPRESSION: Advanced left knee osteoarthritis. Reading Location: [facility] CC: [facility] PROMOTIONS MANAGER-C Brook Padilla ~ Data Migration Lead: Signed [facility] 10-08-2024 Radiology Diagnostic study note [facility] Imaging Services [address] [place] [address] Shoulder min 2 Views MR#: [id number] Acct: [id number] Name: XIMENA PINO Rep #: [id number] : 1955 F 68 From: Yung Ruiz MD PCP: SIERRA Sandoval, PROMOTIONS MANAGER-C Status: REG CLI Study:Shoulder min 2 Views Date of Exam: 10/08/24 Exam# [id number] Ordering Dr: Destinee Padilla PROCEDURE: SHOULDER MIN 2 VIEWS 10/08/2024 REASON FOR EXAM: SHOULDER PAIN TECHNIQUE: Four view left shoulder series and four view right shoulder series (combined dictation). COMPARISON: None. RAD/Shoulder min 2 Views IMPRESSION: On the left, mild acromioclavicular joint degenerative changes are seen. Moderate to moderately severe left glenohumeral joint degenerative changes are noted, with partial associated joint narrowing. On the right, moderate acromioclavicular joint degenerative changes are seen. The right glenohumeral joint demonstrates moderately severe degenerative changes, with moderately severe to severe associated joint narrowing. No acute fracture or dislocation is seen. Reading Location: [place] [address] CC: [facility] PROMOTIONS MANAGER-C Brook Brennan; Destinee Padilla ~ Data Migration Lead: Signed [facility] 10-08-2024 Radiology Diagnostic study note [facility] Imaging Services [address] [place], [place] [address] Shoulder min 2 Views MR#: [id number] Acct: [id number] Name: XIMENA PINO Rep #: [id number] : 1955 F 68 From: Yung Ruiz MD PCP: SIERRA Sandoval, PROMOTIONS MANAGER-C Status: REG CLI Study:Shoulder min 2 Views Date of Exam: 10/08/24 Exam# [id number] Ordering Dr: Destinee Padlila PROCEDURE: SHOULDER MIN 2 VIEWS 10/08/2024 REASON FOR EXAM: SHOULDER PAIN TECHNIQUE: Four view left shoulder series and four view right shoulder series (combined dictation). COMPARISON: None. RAD/Shoulder min 2 Views IMPRESSION: On the left, mild acromioclavicular joint degenerative changes are seen. Moderate to moderately severe left glenohumeral joint degenerative changes are noted, with partial associated joint narrowing. On the right, moderate acromioclavicular joint degenerative changes are seen. The right glenohumeral joint demonstrates moderately severe degenerative changes, with moderately severe to severe associated joint narrowing. No acute fracture or dislocation is seen. Reading Location: [place] [address] CC: [facility] PROMOTIONS MANAGER-Lou Brennan; Destinee Padilla ~ Data Migration Lead: Signed [facility] 08-25-2024 Evaluation note Diagnosis Onset Date Resolution Shortness of breath acute August 25, 2024 12:43pm Atrial fibrillation chronic August 25, 2024 12:43pm HTN (hypertension) chronic August 092024 12:43pm KEV (obstructive sleep apnea) chronic August 25, 2024 12:43pm [facility] Work Phone: 1(876) 209-477506-17-2025 Evaluation note* Diagnosis Onset Date Resolution Status Admit Date Shortness of breath acute August 25, 2024 12:43pm Atrial fibrillation chronic August 25, 2024 12:43pm HTN (hypertension) chronic August 092024 12:43pm KEV (obstructive sleep apnea) chroni c August 25, 2024 12:43pm Shortness of breath acute October 06, 2024 12:50pm Atrial fibrillation chronic October 06, 2024 12:50pm HTN (hypertension) chronic September 092024 12:50pm KEV (obstructive sleep apnea) chroni c October 06, 2024 12:50pm [facility] Work Phone: 1(490) 991-658406-17-2025 Evaluation note* Diagnosis Onset Date Resolution Status Admit Date Shortness of breath acute August 25, 2024 12:43pm Atrial fibrillation chronic August 25, 2024 12:43pm HTN (hypertension) chronic August 092024 12:43pm KEV (obstructive sleep apnea) chroni c August 25, 2024 12:43pm Hyperlipidemia acute October 06, 2024 12:50pm Left leg pain acute October 06, 2024 12:50pm Shortness of breath acute October 06, 2024 12:50pm Atrial fibrillation chronic October 06, 2024 12:50pm HTN (hypertension) chronic September 092024 12:50pm KEV (obstructive sleep apnea) chroni c October 06, 2024 12:50pm [facility] Work Phone: 1(724) 602-175606-17-2025 Evaluation note* Diagnosis Onset Date Resolution Status Admit Date Shortness of breath acute August 25, 2024 12:43pm Atrial fibrillation chronic August 25, 2024 12:43pm HTN (hypertension) chronic August 092024 12:43pm KEV (obstructive sleep apnea) chroni c August 25, 2024 12:43pm Hyperlipidemia acute October 06, 2024 12:50pm Left leg pain acute October 06, 2024 12:50pm Shortness of breath acute October 06, 2024 12:50pm Atrial fibrillation chronic October 06, 2024 12:50pm HTN (hypertension) chronic September 092024 12:50pm KEV (obstructive sleep apnea) chroni c October 06, 2024 12:50pm HTN (hypertension) chronic October 21, 2024 11:01am [facility] Work Phone: 1(572) 350-479405-29-2025 Radiology Diagnostic study note [facility] Imaging Services [address], [place] [id number] Chest PA and Lateral MR#: [id number] Acct: [id number] Name: XIMENA PINO Rep #: [id number] : 1955 F 68 From: Edmond Latham MD PCP: SIERRA Sandoval, PROMOTIONS MANAGER-C Status: REG CLI Study:Chest PA and Lateral Date of Exam: 08/06/24 Exam# [id number] Ordering Dr: Laurel Newell PROMOTIONS MANAGER-C PROCEDURE: CHEST PA AND LATERAL 08/06/2024 REASON FOR EXAM: SOB Wheezing and shortness of breath. TECHNIQUE: Frontal and lateral views of the chest. COMPARISON: None FINDINGS: Hardware: None Heart: Heart size upper limits of normal. Mediastinum: The mediastinal contour is unremarkable. Lungs: The lungs are clear. Bones: Degenerative changes are identified within the thoracic spine. RAD/Chest PA and Lateral IMPRESSION: NO ACUTE FINDINGS. Reading Location: [id number] CC: PANCHITO Newell; [facility] PROMOTIONS MANAGER-Lou Brennan ~ Data Migration Lead: Signed [facility]02-20-2024 History of Present illness Narrative* Juventino Brook, PT - 04/30/2023 5:47 PM EST Episode Visit Count: 5 Therapist That Will Accept/Oversee The Plan Of Care: Brook Jauregui Start of Care Date: 03/26/23 Onset Date: 02/04/23 Plan of Care Certification Date: 03/26/23 Next Certification Due Date: 04/30/23 REHABILITATION AND SPORTS THERAPY PHYSICAL THERAPY DISCONTINUANCE OF CARE PLAN OF CARE UPDATE: Assessment: Ximena Pino is discontinued from Physical Therapy services due to goal achievement and maximal benefit. and Patient/Client declining further intervention.. Patient was seen for 5 visits from Start of Care Date: 03/26/23 to 04/30/2023 and treatment included: Therapeutic exercise, Self-detention management, and Gait training. Goals for Episode of Care: created on 03/26/23 through 05/07/23 Goals updated on 04/30/2023 Goals updated on 04/30/2023. Hood in home exercise program. -- MET Patient will decrease pain rating by 2 points to meet minimal clinical important difference for numeric pain rating scale. -- MET Patient will increase active ROM of L shoulder abduction to 135 or greater to allow pt to to improve performance of ADLs. MET Perform sit > standing with decreased report of symptoms/pain in 6 weeks. -- MET Perform community distance ambulation without pain. -- MET Normal gait. -- PARTIALLY MET Patient Goals: pt. wants to be able to help her daughter with ADLs -- PARTIALLY MET SUBJECTIVE: Pt. looking into vitamins. Pt. reports improvement with PT overall. Pt. reports improvement with her shoulders since starting PT. She continues to have trouble with laying on the sides due to shoulder pain. Pt. didn't do any exercises because she knew she was coming to PT.. Patient Goals: pt. wants to be able to help her daughter with ADLs Functional Limitations: physical activities, walking in the community Pain: Pain Pain Level: 5 Pain Location: Shoulder - Right, Shoulder - Left Description: Aching Pain Level 2: 7 Pain Location 2: Hip - Right Frequency 2: Standing, Walking Post Treatment Pain Post Treatment Pain Level: 0 Post Treatment Pain Location: Shoulder - Left Post Treatment Symptoms: 0 Post Treatment Pain Location 2: Hip - Right PROMIS Scales Higher is Better 04/22/2023 03/26/2023 Phys Func - Score 54 (within normal limits) 41 (mild dysfunction) Phys Func - Percentile 66% 18% Self-Eff Symptom - Score - 44 (Average) Self-Eff Symptom - Percentile - 27% T-scores: mean of general population = 50. 5 points is clinically meaningfully difference Percentiles provide an indication of how the patient's score ranks in relation to the general population. Higher percentile rankings indicate better function/quality of life. 50th percentile is the average of the general population and indicates half of respondents had a worse score. OBJECTIVE MEASURES WITH LEVEL OF FUNCTION: Gait Gait Observation: lateral sway TREATMENT: Therapeutic Exercise: 1: Nustep level 2, 5 min, 1:1 throughout, subjective collected 2: Seated hip add isometric with ball 5 sec hold 2x15 3: Standing shoulder extension AAROM with dowel 2x10 4: Standing hip abduction 2x10 bilat Skilled Intervention: Patient was educated in proper exercise technique and purpose for exercises. Reviewed and educated patient on additions/changes for home exercise program as above (*). Skilled judgment was used in selection of appropriate interventions. Provided written instruction for home exercise program to facilitate proper performance and compliance. Correct performance of therapeutic exercises was facilitated with verbal and visual cuing. Educated patient on rationale for performing exercises in regards to decreasing fatigue , increase ease of ADL, and ROM and function . Patient education as noted. Gait Training: Distance (feet): 80' 3x Gait Cues: avoid lateral trunk sway Assistive Device: none Assist Level: supervision Skilled Intervention: Patient was provided supervision during pre-gait/gait training to prevent falls and insure safety. Self-Senior Living Management: 1: strongly encouraged pt. to discuss vitamin questions with physician 2: discussed at length chronic pain as being something that may be managed but may not completely resolve, exercises should make symptoms feel better or maintain function Skilled Intervention: Skilled judgment in the selection of proper modification for activity of daily living/home management based on clinical presentation, deficits, and needs. Reviewed patient specific diagnosis in relation to activities of daily living/home management. Activity progression based on professional judgement. Correct performance of home program was facilitated with verbal, visual, and tactile cueing. Billing Therapeutic Exercise Treatment Minutes: 20 Self-Care/Home Management Treatment Minutes: 10 Gait Training Treatment Minutes: 8 Skilled Treatment Time Minutes (timed and untimed codes): 38 Total Session Time (minutes): 38 Session Start Time : 1743 Session Stop Time : 1821 Brook Jauregui PT [facility] Instructions* Patient Instructions* Charlene Villalta MD - 03/14/2023 12:10 PM EST The lack of history of joint pain associated with swelling/redness/warmth, limitations in range of motion/closing your hands to make a fist points against a rheumatologic etiology for your arthritis.I suspect you have osteoarthritis/degenerative joint disease and trochanteric bursitis. Please complete -blood work -x-rays -read over information provided on trochanteric bursitis, at home exercises for hips, knees, shoulders Call [phone] to schedule with -physical therapy -dermatology for [...] visit if clinically appropriate [facility] History of Present illness Narrative* Charlene Villalta MD - 03/14/2023 11:32 AM EST Images from the original note were not included. Rheumatology History & Physical Patient name: Ximena Pino Requesting provider: No att. providers found SUBJECTIVE History of Present Illness: Ms. Ximena Pino is a 67 year old female who has a PMHx of former smoker, atrial fibrillation (on AC), HTN, obesity, anxiety/depression, urinary incontinence, HLD, anxiety/depression who presents for rheumatologic evaluation. PSHx: She has no past surgical history on file. Allergies: She has No Known Allergies. Current Meds: amlodipine, eliquis, fluoxetine, lisdexamfetamine, losartan- hydrochlorothiazide, metoprolol tartrate (short acting), oxybutynin er, and [...] Feels these are most bothersome on a dayto day basis "I can hardly raise my arms anymore" over the past month. Has been on rosuvastatin/crestor for "years" notes she was initially on atorvastatin and [...] DVT/PE/&or miscarriages, renal disease, seizures, dry eyes, drymouth, cervical lymphadenopathy or parotid gland swelling, raynaud's [...] Psychiatric: Cooperative. IMPRESSION & RECOMMENDATIONS Ms. Ximena Pino is a 67 year old female who [...] points against a rheumatologic etiology for your arthritis.I suspect you have osteoarthritis/degenerative joint disease and [...] which included preparing to see the patient, [id number] patient care, completing clinical documentation, obtaining and/or reviewing separately obtained history, performing a medically appropriate examination, counseling and educating the pat ient/family/caregiver, ordering medications, tests, or procedures, communicating results to the patient/family/caregiver and care coordination (not separately reported). Charlene Villalta MD Rheumatology Staff [facility] Author Choco Cheung [facility] Note Date/Time November 23, 2024 12:13pm [facility] Medical Records Department [address] [place] [address] Pre-Anesthesia Evaluation 11/23/24 1022 MR#: [id number] Acct: [id number] Name: XIMENA PINO Rep #:[id number] : 1955 68 From: Choco Cheung MD PCP: Brook Brennan, VSC, PROMOTIONS MANAGER-C Statu s:REG SDC Y Race: C Location: [place] [address] ASA Classification* ASA Classification ASA Classification: 3 Assessment & Plan Anesthesia* Anesthesia Assessment Anesthesia Assessment: Discussed sedation and/or anesthesia options, risks, benefits, and alternatives with patient/parents/legal guardian/POA. Questions invited. The patient/parents/legal guardian/POA seems to understand and agrees to proceedwith anesthesia plan. Reviewed the physical assessment, medical history, allergy history and patient home medications list prior to surgery/procedure/anesthetic and documented any changes. Performed airway and anesthesia risk assessments. Anesthesia Type Anesthesia Type: MAC Anesthesia Focused Assessment* Airway Assessment Mouth opens: >3 cm Mallampati Score: II Labs Anesthesia Preop lab: CBC WBC 10.6 K/mm3 (4.4-11.0) 08/06/24 11:17 08/06/24 RBC 4.36 M/mm3 (4.2-5.4) 08/06/24 11:17 08/06/24 Hgb 12.9 g/dL (12.0-15.0) 08/06/24 11:17 08/06/24 Hct 38.0 % (37-47) 08/06/24 11:17 08/06/24 Plt Count 300 K/mm3 (150-450) 08/06/24 11:17 08/06/24 CHEMISTRY Potassium 4.4 mmol/L (3.3-5.1) 11/05/24 10:37 11/05/24 Sodium 139 mmol/L (133-145) 11/05/24 10:37 11/05/24 Magnesium 2.6 mg/dL (1.6-2.6) 01/25/23 07:23 01/25/23 BUN 17 mg/dL (4-19) 11/05/24 10:37 11/05/24 Creatinine 0.90 mg/dL (0.70-1.20) 11/05/24 10:37 11/05/24 Glucose 110 mg/dL (70-99) H 11/05/24 10:37 11/05/24 TSH 2.310 uIU/mL (0.300-4.200) 06/09/24 15:57 0404/04 COAG PT 12.9 SECONDS (11.7-14.9) 02/04/23 15:00 Pre-Assessment Diagnosis/Proposed Procedure Planned Operative Procedure(s): Injection,Shoulder, RIGHT Anesthesia History 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 When Was Last Pacemaker Check QUESTION #4 FULL TEXT: You/Your Family Experience fever (hyperthermia) with Anesthesia Last Oral Intake Last Oral intake: Last Oral Intake NPO since Meds taken in AM with sips of water? Meds patient instructed to take am of surgery PONV PONV - pattern chain maker supervisor: PONV - pattern chain maker supervisor Female Yes 11/17/24 08:54 HX of Motion Sickness No 11/17/24 08:54 HX of N/V After Surgery No 11/17/24 08:54 Non-Smoker Yes 11/17/24 08:54 Duration of Surgery greater No 11/17/24 08:54 than 60 minutes Number of Risk Factors 2 11/17/24 08:54 PONV Score Moderate Risk 11/17/24 08:54 Height & Weight Height & Weight: Anesthesia: Height & Weight Height 5 ft 6 in 10/06/24 13:00 Respiratory Assessment Respiratory Assessment - pattern chain maker supervisor: Respiratory Tract Infection Hx - pattern chain maker supervisor Hx Respiratory Tract Infection No 11/17/24 08:54 STOP Sleep Apnea STOP Sleep Apnea - pattern chain maker supervisor: STOP Sleep Apnea - pattern chain maker supervisor Hx Hypertension Yes: PER PT, CONTROLLED ON 11/17/24 08:54 MEDS Hx Sleep Apnea Yes 11/17/24 08:54 CPAP Yes 11/17/24 08:54 BIPAP No 11/17/24 08:54 Do you snore loudly (louder than talking or can be heard Do you often feel tired/ fatigued/ sleepy during daytime? Has anyone observed you stop breathing during sleep? STOP Results Positive 11/17/24 08:54 QUESTION #5 FULL TEXT : Do you snore loudly (louder than talking or can be heard through closed doors)? 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 Specify any problems Hx of Preganancy in last 3 No 11/17/24 08:54 Months Nurse Filling Out Transfusion MGRISINTIAITH 11/17/24 08:54 & Questions: Date: 11/17/24 11/17/24 08:54 Time: 08:57 11/17/24 08:54 Patient unable to answer at this time (ie. confused, unrespo /Reproduction History /Reproductive History - pattern chain maker supervisor: /Reproductive Hx- pattern chain maker supervisor Hx Now No 11/17/24 08:54 Gestational Age (in weeks): EDC: Hx Hx Para Hx Section SAB No 11/17/24 08:54 Active Medications Active Medications: Current Medications Generic Name Dose Route Start Last Admin Trade Name Freq PRN Reason Stop Dose Admin Lactated Ringer's 1,000 mls @ 15 mls/hr 11/23/24 10:30 IV .Q48H ISIS PFSH Medical History Wears glasses Loose, teeth Wears partial dentures Depression Anxiety Arthritis Urinary incontinence High cholesterol CPAP (continuous positive airway pressure) dependence Sleep apnea Former smoker Leg cramps History of edema Shortness of breath on exertion History of atrial fibrillation History of Holter monitoring History of echocardiogram History of stress test Cardiology follow-up encounter KEV (obstructive sleep apnea) Intermittent palpitations HTN (hypertension) Home Medications ?Medication ?Instructions ?Recorded ?Last Taken ?Type metoprolol tartrate 100 mg tablet 100 mg PO BID Unknown History oxybutynin chloride 10 mg 10 mg PO DAILY 02/11/23 Unkn own History tablet,extended release 24 hr apixaban 5 mg tablet (Eliquis) 5 mg PO BID #60 tabs Unknown Rx cholecalciferol (vitamin D3) 125 125 mcg PO QDAY 08/25 Unknown History mcg (5,000 unit) capsule terbinafine HCl 250 mg tablet 250 mg PO QDAY 08/25/24 Unknown History amlodipine 5 mg tablet 5 mg PO DAILY #90 tabs 10/06 Unknown Rx bupropion HCl 150 mg 24 hr tablet, 300 mg PO QDAY 09/09 12/03 Unknown History extended release evolocumab 140 mg/mL subcutaneous 140 mg subcut Q2W #2 mL 10/06/24 Unknown Rx pen injector (Randal Chavez) hydrochlorothiazide 25 mg tablet 50 mg (2 x 25 mg) PO QDAY #180 tabs 10/06/24 Unknown Rx losartan 100 mg tablet 100 mg PO QDAY #90 tabs 09/09 12/03 Unknown Rx Allergy/AdvReac Type Severity Reaction Status Date / Time rosuvastatin AdvReac Severe myalgias Verified 11/17/24 08:49 [id number] Reductase AdvReac Intermediate intolerant Verified 11/17/24 08:49 Inhibitor Family History Father Heart disease Surgical History History of dilatation and curettage Social History Smoking Status: Former smoker Tobacco: How many years used: 12 alcohol intake: never substance use type: does not use caffeine: Yes Review of Systems (Anesthesia) ROS Narrative System reviewed and no additional complaints, except as documented. 11/23/24 1022 <Electronically signed by Choco Cheung MD > Date _ Choco Cheung MD Cosigner Signature: Date CC: ~ Signed [facility] Work Phone: Consult note Author Marina Campos [facility] Note Date/Time November 23, 2024 11:19am [facility] Medical Records Department [address] [place] [id number] Anesthesia Postop Eval I 11/23/24 1118 MR#: [id number] Acct: [id number] Name: XIMENA PINO Rep #:[id number] : 1955 68 From: Marina sheehan CRNA PCP: SIERRA Sandoval, PROMOTIONS MANAGER-C Statu s:REG MACHELLE Y Race: C Location: [place] [address] Anesthesia: Postop Eval I Current Vital Signs Temperature: 97.2 F Pulse Rate: 68 Blood Pressure: 119/64 Respiratory Rate: 18 Pulse Ox: 100 Oxygen Delivery Method: Room Air Assessment Airway patent: Yes Spontaneous unlabored respirations: Yes Mental status: Awake and Calm nausea: No Vomiting: No Anesthesia Complication: No Fluid Hydration Crystalloid volume administer (ml): 200 Total IV fluid infused: 200 Progress Note Anesthesia document: Postop Eval 1 completed: Yes 11/23/24 1119 <Electronically signed by Marina quintanilla CRNA> Date _ Marina Campos CRNA Cosigner Signature: Date CC: ~ Signed [facility] Work Phone: Consult note Author Choco Cheung [facility] Note Date/Time November 23, 2024 12:13pm [facility] Medical Records Department [address] [place] [address] Anesthesia Postop Eval II 11/23/24 121 MR#: [id number] Acct: [id number] Name: XIMENA PINO Rep #:[id number] : 1955 68 From: Choco Cheung MD PCP: Brook Brennan Lou, PROMOTIONS MANAGER-C Statu s:DEP [facility] [place] Race: C [place] [facility] [place]esthesia Postop Eval I Sum Postop Eval Completion status Anesthesia document: Postop Eval 1 completed: Yes Anesthesia Postop Eval I Summary Anesthesia Postop Eval I Summary: Anesthesia Postop Eval I: Assessment Summary Airway patent Yes 11/23/24 11:19 [email or web address] Spontaneous unlabored Yes 11/23/24 11:19 [email or web address] respirations Mental status Awake,Calm 11/23/24 11:19 [email or web address] nausea No 11/23/24 11:19 [email or web address] Vomiting No 11/23/24 11:19 [email or web address] Anesthesia Postop Eval I: Fluid Summary Crystalloid volume administer 200 11/23/24 11:19 [email or web address] (ml) Colloids volume administered ( ml) Blood Product volume administered (ml) Total IV fluid infused 200 11/23/24 11:19 [email or web address] Anesthesia Postop Eval I: Summary Notes Anesthesia Complication No 11/23/24 11:19 [email or web address] Anesthesia Complication Comment: Post-operative progress note Anesthesia: Postop Eval II Evaluation Mental status: Awake Pain Level: 2 nausea: No Vomiting: No 11/23/241211 <Electronically signed by Choco Cheung MD > Date _ Choco Harper Signature: Date CC: ~ Signed [facility] Work Phone: Evaluation noteNo assessment information available [facility] Work Phone: Evaluation note* Diagnosis Bilateral shoulder pain, unspecified chronicity- Primary Trochanteric bursitis of left hip Enthesopathy of hip region Trochanteric bursitis of right hip Enthesopathy of hip region History of atrial fibrillation Personal history of other diseases of circulatory system Anticoagulated Long-term (current) use of anticoagulants Pain in joint, multiple sites Rash and nonspecific skin eruption Rash and other nonspecific skin eruption [facility] [place] [facility] Diagnosis Onset Date Resolution Status Atrial fibrillation acute HTN (hypertension) chronic [facility] Work Phone: Evaluation note* Diagnosis Pain in joint, multiple sites- Primary documented [facility] [place] [facility]* Diagnosis Bilateral shoulder pain, unspecified chronicity- Primary Trochanteric bursitis of left hip Enthesopathy of hip region Trochanteric bursitis of right hip Enthesopathy of hip region Pain in joint, multiple sites documented [facility] this [facility] [place] [facility]* Diagnosis Pain in joint, multiple sites- Primary Other chronic pain Malaise and fatigue Other malaise and fatigue documented in this encounter [facility] for referral (narrative)* Diagnostic Procedure Only (Routine) [...] COMPLETE MINIMUM 3 VIEWS Charlene Villalta MD [address] [place] [address] Xr Imaging [place] [address] Referral ID Status Reason Start Date Expiration Date V isits Requested Visits Authorized [id number] Closed Auto-Generate d Referral 03/14/2023 04/12/2024 1 1 * Diagnostic Procedure Only (Routine) - Closed Specialty Diagnoses / Procedures Referred By Jose Rafael silva Referred To Contact XR IMAGING Diagnoses Bilateral shoulder pain, unspecified chronicity Trochanteric bursitis of left hip Trochanteric bursitis of right hip History of atrial fibrillation Anticoagulated Pain in joint, multiple sites Rash and nonspecific skin eruption Procedures XR KNEE GENERAL 4V AP BOTH/PA BOTH/LAT/MERC BILATERAL RADIOLOGIC EXAM KNEE COMPLETE 4/MORE VIEWS Charlene Villalta MD [address] [place] [address] Xr Imaging [facility] Referral ID Status Reason Start Date Expiration Date V isits Requested Visits Authorized [id number] Closed Auto-Generate d Referral 03/14/2023 04/12/2024 1 1 * Physical Therapy (Routine) - Authorized Specialty Diagnoses / Procedures Referred By Jose Rafael silva Referred To Contact [facility] Diagnoses Bilateral shoulder pain, unspecified chronicity Trochanteric bursitis of left hip Trochanteric bursitis of right hip History of atrial fibrillation Anticoagulated Pain in joint, multiple sites Rash and nonspecific skin eruption Procedures CONSULT TO PHYSICAL THERAPY PHYSICAL THERAPY EVALUATION HIGH COMPLEX 45 MINS Charlene Villalta MD [address] [place] [phone] [facility] [place] [address] Referral ID Status Reason Start Date Expiration Date Visits Requested Visits Authorized [id number] Authorized Auto-Generat ed Referral 03/11/2023 03/10/2024 1 1 * Transition of Care (Routine) - Ref Not Required Specialty Diagnoses / Procedures Referred By Jose Rafael silva Referred To Contact Dermatology Diagnoses Bilateral shoulder pain, unspecified chronicity Trochanteric bursitis of left hip Trochanteric bursitis of right hip History of atrial fibrillation Anticoagulated Pain in joint, multiple sites Rash and nonspecific skin eruption Procedures CONSULT TO DERMATOLOGY Charlene Villalta MD [address] [place] [address] Referral ID Status Reason Start Date Expiration Date Visits Requested Visits Authorized [id number] Ref Not Required PCP Requested Referral 03/14/2023 [...] MINIMUM 3 VIEWS Charlene Villalta MD [address] [place] [phone] Xr Imaging [facility] Referral ID Status Reason Start Date Expiration Date V isits Requested Visits Authorized [id number] Closed Auto-Generate d Referral 03/14/2023 04/12/2024 1 1 * Diagnostic Procedure Only (Routine) - Closed Specialty Diagnoses / Procedures Referred By Contac t Referred To Contact XR IMAGING Diagnoses Bilateral shoulder pain, unspecified chronicity Trochanteric bursitis of left hip Trochanteric bursitis of right hip History of atrial fibrillation Anticoagulated Pain in joint, multiple sites Rash and nonspecific skin eruption Procedures XR SHOULDER [id number] AP/TRUE AP RIGHT RADEX SHOULDER COMPLETE MINIMUM 2 VIEWS Charlene Villalta MD [address] [place] [phone] Xr Imaging [facility] Referral ID Status Reason Start Date Expiration Date V isits Requested Visits Authorized [id number] Closed Auto-Generate d Referral 03/14/2023 04/12/2024 1 [...] COMPLETE MINIMUM 2 VIEWS Charlene Villalta MD [address] [place] [address] Xr Imaging [place] [address] Referral ID Status Reason Start Date Expiration Date V isits Requested Visits Authorized [id number] Closed Auto-Generate d Referral 03/14/2023 04/12/2024 1 1 * Diagnostic Procedure Only (Routine) - Closed Specialty Diagnoses / Procedures Referred By Liamac t Referred To Contact XR IMAGING Diagnoses Bilateral shoulder pain, unspecified chronicity Trochanteric bursitis of left hip Trochanteric bursitis of right hip History of atrial fibrillation Anticoagulated Pain in joint, multiple sites Rash and nonspecific skin eruption Procedures XR HIP GENERAL 3V PELV/AP/LAT RIGHT RADEX HIP UNILATERAL WITH PELVIS 2-3 VIEWS Charlene Villalta MD [address] [place] [address] Xr Imaging [place] [address] Referral ID Status Reason Start Date Expiration Date V isits Requested Visits Authorized [id number] Closed Auto-Generate d Referral 03/14/2023 04/12/2024 1 [...] WITH PELVIS 2-3 VIEWS Charlene Villalta MD [address] [place] [phone] [place] [address] Referral ID Status Reason Start Date Expiration Date V isits Requested Visits Authorized [id number] Closed Auto-Generate d Referral 03/14/2023 04/12/2024 1 1 [facility] for referral (narrative)No reason for referral information [facility] Work Phone: Summary Purpose Family History No Family History Records Found Relationship Condition Age at Onset Recorded Date/T mike father Cardiac disease Unknown Advance Directives No Advanced Directives Records Found Advance Directive Response Recorded Date/ Time Living Will No February 04 3:05pm Power of Security Professional No February 04, 2023 3:05pm Advance Directive Response Recorded Date/ Time Do you have a [facility] Power of Security Professional? Yes November 17, 2024 8:54am Chief Complaint and Reason for Visit Chief Complaint sob Palpitations Chief Complaint sob Palpitations DYSPNEA DYSPNEA Chief Complaint sob Palpitations DYSPNEA DYSPNEA SOB / MCCARTNEY / EST ([facility]) Reason for Visit Atrial fibrillation HTN (hypertension) Chief Complaint sob Palpitations DYSPNEA DYSPNEA SOB / MCCARTNEY / EST ([facility]) Palpitations Reason for Visit Atrial fibrillation HTN (hypertension) Chief Complaint Admit Date ORDER BEING FAXED February 18, 2024 2:42pm Chief Complaint Admit Date 18 M FU August 25, 2024 12:4 3pm Chief Complaint Admit Date 18 M FU August 25, 2024 12:4 3pm SHORTNESS OF BREATH August 28, 2024 9:39 am Reason for Visit Admit Date Shortness of breath August 25, 2024 12:4 3pm Atrial fibrillation August 25, 2024 12:4 3pm HTN (hypertension) August 25, 2024 12:4 3pm KEV (obstructive sleep apnea) August 25, 2024 12:43pm Chief Complaint Admit Date 18 M FU August 25, 2024 12:4 3pm SHORTNESS OF BREATH August 28, 2024 9:39 am 6 WK FU October 06, 2024 12:5 0pm Reason for Visit Admit Date Shortness of breath August 25, 2024 12:4 3pm Atrial fibrillation August 25, 2024 12:4 3pm HTN (hypertension) August 25, 2024 12:4 3pm KEV (obstructive sleep apnea) August 25, 2024 12:43pm Shortness of breath October 06, 2024 12:5 0pm Atrial fibrillation October 06, 2024 12:5 0pm HTN (hypertension) October 06, 2024 12:5 0pm KEV (obstructive sleep apnea) October 06, 2024 12:50pm Chief Complaint Admit Date 18 M FU August 25, 2024 12:4 3pm SHORTNESS OF BREATH August 28, 2024 9:39 am 6 WK FU October 06, 2024 12:5 0pm LT LEG PAIN, ELEVATED D-DIMER AND XRAY J deven 2024 10:06am Reason for Visit Admit Date Shortness of breath August 25, 2024 12:4 3pm Atrial fibrillation August 25, 2024 12:4 3pm HTN (hypertension) August 25, 2024 12:4 3pm KEV (obstructive sleep apnea) August 25, 2024 12:43pm Hyperlipidemia October 06, 2024 12:5 0pm Left leg pain October 06, 2024 12:5 0pm Shortness of breath October 06, 2024 12:5 0pm Atrial fibrillation October 06, 2024 12:5 0pm HTN (hypertension) October 06, 2024 12:5 0pm KEV (obstructive sleep apnea) October 06, 2024 12:50pm Chief Complaint Admit Date 18 M FU August 25, 2024 12:4 3pm SHORTNESS OF BREATH August 28, 2024 9:39 am 6 WK October 06, 2024 12:5 0pm LT LEG PAIN, ELEVATED D-DIMER AND XRAY J deven 2024 10:06am Blood pressure check October 21, 2024 1 1:01am Chief Complaint Admit Date 18 M FU August 25, 2024 12:4 3pm SHORTNESS OF BREATH August 28, 2024 9:39 am 6 WK FU October 06, 2024 12:5 0pm LT LEG PAIN, ELEVATED D-DIMER AND XRAY J deven 2024 10:06am Blood pressure check October 21, 2024 1 1:01am E ORDERS November 05, 2024 10 :27am Reason for Visit Admit Date Shortness of breath August 25, 2024 12:4 3pm Atrial fibrillation August 25, 2024 12:4 3pm HTN (hypertension) August 25, 2024 12:4 3pm KEV (obstructive sleep apnea) August 25, 2024 12:43pm Hyperlipidemia October 06, 2024 12:5 0pm Left leg pain October 06, 2024 12:5 0pm Shortness of breath October 06, 2024 12:5 0pm Atrial fibrillation October 06, 2024 12:5 0pm HTN (hypertension) October 06, 2024 12:5 0pm KEV (obstructive sleep apnea) October 06, 2024 12:50pm HTN (hypertension) October 21, 2024 11 :01am Chief Complaint Admit Date 18 M FU August 25, 2024 12:4 3pm SHORTNESS OF BREATH August 28, 2024 9:39 am 6 WK FU October 06, 2024 12:5 0pm LT LEG PAIN, ELEVATED D-DIMER AND XRAY J deven 2024 10:06am Blood pressure check October 21, 2024 1 1:01am E ORDERS November 05, 2024 10 :27am Injection,Shoulder November 23, 2024 10:09am Chief Complaint Admit Date 18 M FU August 25, 2024 12:4 3pm SHORTNESS OF BREATH August 28, 2024 9:39 am 6 WK FU October 06, 2024 12:5 0pm LT LEG PAIN, ELEVATED D-DIMER AND XRAY J deven 2024 10:06am Blood pressure check October 21, 2024 1 1:01am E ORDERS November 05, 2024 10 :27am Injection,Shoulder November 23, 2024 10:09am SOB December 08, 2024 4:40pm Reason for Referral Specialty Diagnoses / Procedures Referred By Contac t Referred To Contact [facility] [place] Diagnoses Pain in joint, multiple sites Other chronic pain Malaise and fatigue Procedures CONSULT TO [facility]IN) OFFICE/OUTPATIENT [facility] 60 MINUTES Charlene Villalta MD [address] [place] [address] Referral ID Status Reason Start Date Expiration Date Visits Requested Visits Authorized [id number] Pending Review PCP Requested Referral 05/01/2023 04/30/2024 1 1 Additional Source Comments INFORMATION SOURCE (unrecogn ized section and content) DATE CREATED AUTHOR 08/30/2017 [facility] DATE CREATED AUTHOR AUTHOR'S ORGANIZ ATION 09/20/2017 [facility] DATE CREATED AUTHOR AUTHOR'S ORGANIZ ATION 11/01/2017 [facility] DATE CREATED AUTHOR AUTHOR'S ORGANIZ ATION 04/25/[address] [facility] DATE CREATED AUTHOR AUTHOR'S ORGANIZ ATION 01/06/2025 [facility] DATE CREATED AUTHOR AUTHOR'S ORGANIZ ATION 01/15/2025 [facility] Care Teams (unrecognized sec tion and content) Team Status: Active Member Role Status Dates Dr. Antoni Anderson MD Family Provider Active [facility] Primary Care Provider A ctive Team Status: Inactive Member Role Status Dates [facility] Primary Care Provider A ctive JAYMIE BASHIR , PROMOTIONS MANAGER-C Attending Provider, Referring Provider Active Team Status: Inactive Member Role Status Dates [facility] Primary C are Provider, Attending Provider, Referring Provider Active Brook Brennan PROMOTIONS MANAGER, PROMOTIONS MANAGER-C Other Provider Active Team Status: Inactive Member Role Status Dates [facility] Primary Care Provider A ctive Dr. Stevenson Falcon , DO Attending Provider, Emergency Provide r Active Team Status: Inactive Member Role Status Dates [facility] Primary Care Provider A ctive Brook Brennan PROMOTIONS MANAGER, PROMOTIONS MANAGER-C Attending Provider, Referrin g Provider Active Team Status: Active Member Role Status Dates [facility] Primary Care Provider A ctive Brook Brennan PROMOTIONS MANAGER, PROMOTIONS MANAGER-C Referring Provider, Other Pr ovider Active Dr. Mitch Perez MD Attending Provider Active Ed Transporter Relationship Specialty Start Date End Date Brook Brennan NP [facility] [place] [phone] PCP - General Family Medicine 02/05/23 Team Status: Inactive Member Role Status Dates [facility] Primary Care Provider, Referring Provider Active Dr. Mitch Perez MD Attending Provider Active Ed Transporter Relationship Specialty Start Date End Date Brook Brennan NP [address] [place] [phone] PCP - General Family Medicine 02/05/23 Ed Transporter Relationship Specialty Start Date End Date Brook Brennan NP [address] [facility] [place] [phone] PCP - General Family Medicine 02/05/23 Ed Transporter Relationship Specialty Start Date End Date Brook Brennan PROMOTIONS MANAGER [address] [facility] [place] [phone] PCP - General Family Medicine 02/05/23 Team Status: Active Member Role Status Dates [facility] Primary Care Provider A ctive Dr. Mitch Perez MD Attending Provider Active Team Status: Inactive Member Role Status Dates [facility] Primary Care Provider A ctive Dr. Mitch Perez MD Attending Provider, Referring Pro vider Active Team Status: Active Member Role Status Dates Dr. Antoni Anderson MD Family Provider Active Brook Brennan VSC, PROMOTIONS MANAGER-C Primary Care Provider Activ e Team Status: Inactive Member Role Status Dates Brook ESQUIVEL, PROMOTIONS MANAGER-C Primary Care Provider Activ e Start: February 18, 2024 End: February 18, 2024 Dr. Shahzad Pagan DPM Attending Provider Active Start: February 18, 2024 End: February 18, 2024 Dr. Shahzad Pagan DPM Referring Provider Active Start: February 18, 2024 End: February 18, 2024 Team Status: Inactive Member Role Status Dates Brook Brennan VSC, PROMOTIONS MANAGER-C Primary Care Provider Activ e Start: June 09, 2024 End: June 09, 2024 Brook ESQUIVEL, PROMOTIONS MANAGER-C Attending Provider Active Start: June 09, 2024 End: June 09, 2024 Team Status: Active Member Role Status Dates Brook BABINC, PROMOTIONS MANAGER-C Primary Care Provider Activ e Team Status: Inactive Member Role Status Dates Brook Brennan VSC, PROMOTIONS MANAGER-C Primary Care Provider Activ e Start: August 06, 2024 End: August 06, 2024 Laurel Tannhof , PROMOTIONS MANAGER-C Attending Provider Active Start: August 06, 2024 End: August 06, 2024 Team Status: Inactive Member Role Status Dates Brook BABINC, PROMOTIONS MANAGER-C Primary Care Provider Activ e Start: August 25, 2024 End: August 25, 2024 Brook BABINC, PROMOTIONS MANAGER-C Referring Provider Active Start: August 25, 2024 End: August 25, 2024 STEPAN Hsu Attending Provider Active St art: August 25, 2024 End: August 25, 2024 Team Status: Active Member Role/Relationship Status Dates Brook Brennan VSC, PROMOTIONS MANAGER-C Primary Care Provider Activ e Team Status: Inactive Member Role/Relationship Status Dates Brook Brennan VSC, PROMOTIONS MANAGER-C Primary Care Provider Activ e Start: June 09, 2024 End: June 09, 2024 Brook BABINC, PROMOTIONS MANAGER-C Attending Provider Active Start: June 09, 2024 End: June 09, 2024 Team Status: Inactive Member Role/Relationship Status Dates Brook Brennan VSC, PROMOTIONS MANAGER-C Primary Care Provider Activ e Start: August 06, 2024 End: August 06, 2024 Laurel Newell PROMOTIONS MANAGER-C Attending Provider Active Start: August 06, 2024 End: August 06, 2024 Team Status: Inactive Member Role/Relationship Status Dates Brook BABINC, PROMOTIONS MANAGER-C Primary Care Provider Activ e Start: August 25, 2024 End: August 25, 2024 Brook BABINC, PROMOTIONS MANAGER-C Referring Provider Active Start: August 25, 2024 End: August 25, 2024 STEPAN Hsu Attending Provider Active St art: August 25, 2024 End: August 25, 2024 Team Status: Inactive Member Role/Relationship Status Dates Brook Brennan VSC, PROMOTIONS MANAGER-C Primary Care Provider Activ e Start: August 28, 2024 End: August 28, 2024 STEPAN Hsu Attending Provider Active St art: August 28, 2024 End: August 28, 2024 STEPAN Hsu Referring Provider Active St art: August 28, 2024 End: August 28, 2024 Team Status: Active Member Role/Relationship Status Dates Brook Mika VSC, PROMOTIONS MANAGER-C Primary Care Provider Activ e Start: August 28, 2024 Dr. Mitch Perez MD Attending Provider Active S tart: August 28, 2024 Team Status: Inactive Member Role/Relationship Status Dates Brook BABINC, PROMOTIONS MANAGER-C Primary Care Provider Activ e Start: October 06, 2024 End: October 06, 2024 Brook BABINC, PROMOTIONS MANAGER-C Referring Provider Active Start: October 06, 2024 End: October 06, 2024 STEPAN Hsu Attending Provider Active St art: October 06, 2024 End: October 06, 2024 Team Status: Inactive Member Role/Relationship Status Dates Brook BABINC, PROMOTIONS MANAGER-C Primary Care Provider Activ e Start: August 06, 2024 End: August 06, 2024 Laurel Newell PROMOTIONS MANAGER-C Attending Provider Active Start: August 06, 2024 End: August 06, 2024 Team Status: Inactive Member Role/Relationship Status Dates Brook BABINC, PROMOTIONS MANAGER-C Primary Care Provider Activ e Start: August 25, 2024 End: August 25, 2024 Brook BABINC, PROMOTIONS MANAGER-C Referring Provider Active Start: August 25, 2024 End: August 25, 2024 STEPAN Hsu Attending Provider Active St art: August 25, 2024 End: August 25, 2024 Team Status: Inactive Member Role/Relationship Status Dates Brook BABINC, PROMOTIONS MANAGER-C Primary Care Provider Activ e Start: August 28, 2024 End: August 28, 2024 STEPAN Hsu Attending Provider Active St art: August 28, 2024 End: August 28, 2024 STEPAN Hsu Referring Provider Active St art: August 28, 2024 End: August 28, 2024 Team Status: Active Member Role/Relationship Status Dates Brook BABINC, PROMOTIONS MANAGER-C Primary Care Provider Activ e Start: August 28, 2024 Dr. Mitch Perez MD Attending Provider Active S tart: August 28, 2024 Team Status: Inactive Member Role/Relationship Status Dates Brook Brennan VSC, PROMOTIONS MANAGER-C Primary Care Provider Activ e Start: October 06, 2024 End: October 06, 2024 Brokofarida BABINC, PROMOTIONS MANAGER-C Referring Provider Active Start: October 06, 2024 End: October 06, 2024 STEPAN Hsu Attending Provider Active St art: October 06, 2024 End: October 06, 2024 Team Status: Active Member Role/Relationship Status Dates Brook BABINC, PROMOTIONS MANAGER-C Primary Care Provider Activ e Start: October 06, 2024 STPEAN Hsu Attending Provider Active St art: October 06, 2024 STEPAN Hsu Referring Provider Active St art: October 06, 2024 Team Status: Inactive Member Role/Relationship Status Dates Brook Mika VSC, PROMOTIONS MANAGER-C Primary Care Provider Activ e Start: October 08, 2024 End: October 08, 2024 STEPAN Hsu Attending Provider Active St art: October 08, 2024 End: October 08, 2024 STEPAN Hsu Referring Provider Active St art: October 08, 2024 End: October 08, 2024 NP. Destinee Padilla Other Provider Active Start: Mildred carvalho 2024 End: October 08, 2024 Team Status: Active Member Role/Relationship Status Dates Brook Mika TALYAC, PROMOTIONS MANAGER-C Primary Care Provider Activ e Start: October 08, 2024 Dr. Cuauhtemoc Carbajal MD Attending Provider Active S tart: October 08, 2024 Team Status: Inactive Member Role/Relationship Status Dates Brook Mika VSC, PROMOTIONS MANAGER-C Primary Care Provider Activ e Start: October 21, 2024 End: October 21, 2024 Brook Mika TALYAC, PROMOTIONS MANAGER-C Referring Provider Active Start: October 21, 2024 End: October 21, 2024 Dr. Mitch Perez MD Attending Provider Active S tart: October 21, 2024 End: October 21, 2024 Team Status: Inactive Member Role/Relationship Status Dates Brook Mika VSC, PROMOTIONS MANAGER-C Primary Care Provider Activ e Start: October 06, 2024 End: October 06, 2024 STEPAN Hsu Attending Provider Active St art: October 06, 2024 End: October 06, 2024 STEPAN Hsu Referring Provider Active St art: October 06, 2024 End: October 06, 2024 Team Status: Active Member Role/Relationship Status Dates Brookfarida BABINC, PROMOTIONS MANAGER-C Primary Care Provider Activ e Start: October 08, 2024 Dr. Cuauhtemoc Carbajal MD Attending Provider Active S tart: October 08, 2024 STEPAN Hsu Referring Provider Active St art: October 08, 2024 Team Status: Inactive Member Role/Relationship Status Dates Brookpooja ESQUIVEL, PROMOTIONS MANAGER-C Primary Care Provider Activ e Start: November 05, 2024 End: November 05, 2024 STEPAN Hsu Attending Provider Active St art: November 05, 2024 End: November 05, 2024 STEPAN Hsu Referring Provider Active St art: November 05, 2024 End: November 05, 2024 Team Status: Inactive Member Role/Relationship Status Dates Brook Mika BABINC, PROMOTIONS MANAGER-C Primary Care Provider Activ e Start: November 23, 2024 End: November 23, 2024 Dr. Compa Bangura MD Attending Provider Active Start: November 23, 2024 End: November 23, 2024 Dr. Compa Bangura MD Referring Provider Active Start: November 23, 2024 End: November 23, 2024 Team Status: Active Member Role/Relationship Status Dates Brook ESQUIVEL, PROMOTIONS MANAGER-C Primary care physician Acti ve Team Status: Inactive Member Role/Relationship Status Dates Brookfarida ESQUIVEL, PROMOTIONS MANAGER-C Primary care physician Acti ve Start: August 25, 2024 End: August 25, 2024 Brookpooja ESQUIVEL, PROMOTIONS MANAGER-C Referring Provider Active Start: August 25, 2024 End: August 25, 2024 STEPAN Hsu Attending physician Active S tart: August 25, 2024 End: August 25, 2024 Team Status: Inactive Member Role/Relationship Status Dates Brook ESQUIVEL, PROMOTIONS MANAGER-C Primary care physician Acti ve Start: August 28, 2024 End: August 28, 2024 STEPAN Hsu Attending physician Active S tart: August 28, 2024 End: August 28, 2024 STEPAN Hsu Referring Provider Active St art: August 28, 2024 End: August 28, 2024 Team Status: Active Member Role/Relationship Status Dates Brook BABINC, PROMOTIONS MANAGER-C Primary care physician Acti ve Start: August 28, 2024 Dr. Mitch Perez MD Attending physician Active Start: August 28, 2024 Team Status: Inactive Member Role/Relationship Status Dates Brook ESQUIVEL, PROMOTIONS MANAGER-C Primary care physician Acti ve Start: October 06, 2024 End: October 06, 2024 Brook ESQUIVEL, PROMOTIONS MANAGER-C Referring Provider Active Start: October 06, 2024 End: October 06, 2024 STEPAN Hsu Attending physician Active S tart: October 06, 2024 End: October 06, 2024 Team Status: Inactive Member Role/Relationship Status Dates Brook ESQUIVEL, PROMOTIONS MANAGER-C Primary care physician Acti ve Start: October 06, 2024 End: October 06, 2024 STEPAN Hsu Attending physician Active S tart: October 06, 2024 End: October 06, 2024 STEPAN Hsu Referring Provider Active St art: October 06, 2024 End: October 06, 2024 Team Status: Inactive Member Role/Relationship Status Dates Brook ESQUIVEL, PROMOTIONS MANAGER-C Primary care physician Acti ve Start: October 08, 2024 End: October 08, 2024 STEPAN Hsu Attending physician Active S tart: October 08, 2024 End: October 08, 2024 STEPAN Hsu Referring Provider Active St art: October 08, 2024 End: October 08, 2024 NP. Destinee Padilla Nurse Practitioner Active Star t: October 08, 2024 End: October 08, 2024 Team Status: Active Member Role/Relationship Status Dates Brook ESQUIVEL, PROMOTIONS MANAGER-C Primary care physician Acti ve Start: October 08, 2024 Dr. Cuauhtemoc Carbajal MD Attending physician Active Start: October 08, 2024 STEPAN Hsu Referring Provider Active St art: October 08, 2024 Team Status: Inactive Member Role/Relationship Status Dates Brook ESQUIVEL, PROMOTIONS MANAGER-C Primary care physician Acti ve Start: October 21, 2024 End: October 21, 2024 Brook ESQUIVEL, PROMOTIONS MANAGER-C Referring Provider Active Start: October 21, 2024 End: October 21, 2024 Dr. Mitch Perez MD Attending physician Active Start: October 21, 2024 End: October 21, 2024 Team Status: Inactive Member Role/Relationship Status Dates Brook ESQUIVEL, PROMOTIONS MANAGER-C Primary care physician Acti ve Start: November 05, 2024 End: November 05, 2024 STEPAN Hsu Attending physician Active S tart: November 05, 2024 End: November 05, 2024 STEPAN Hsu Referring Provider Active St art: November 05, 2024 End: November 05, 2024 Team Status: Inactive Member Role/Relationship Status Dates Brook ESQUIVEL, PROMOTIONS MANAGER-C Primary care physician Acti ve Start: November 23, 2024 End: November 23, 2024 Dr. Compa Bangura MD Attending physician Active Start: November 23, 2024 End: November 23, 2024 Dr. Compa Bangura MD Referring Provider Active Start: November 23, 2024 End: November 23, 2024 Team Status: Inactive Member Role/Relationship Status Dates Brook ESQUIVEL, PROMOTIONS MANAGER-C Primary care physician Acti ve Start: December 08, 2024 End: December 08, 2024 PANCHITO Martinez Attending physician Active Start: December 08, 2024 End: December 08, 2024 PANCHITO Martinez Referring Provider Active Start: December 08, 2024 End: December 08, 2024 Goals (unrecognized section and content) Goals may be documented in a n alternate sectionGoals may be documented in an alternate sectionGoals may be documented in an alternate sectionGoals may be documented in an alternate sectionGoals may be documented in an alternate sectionGoals may be documented in an alternate sectionGoals may be documented in an alternate sectionGoals may be documented in an alternate sectionGoals may be documented in an alternate sectionGoals may be documented in an alternate sectionGoals may be documented in an alternate sectionGoals may be documented in an alternate sectionGoals may be documented in an alternate sectionGoals may be documented in an alternate section Source Comments (unrecognize d section and content) In the event this informatio n is protected by the Federal Confidentiality of Alcohol and Drug Abuse Patient Records regulations: The Federal rules restrict any use of the information to criminally investigate or prosecute any alcohol or drug abuse patient.[facility] the event this information is protected by the Federal Confidentiality of Alcohol and Drug Abuse Patient Records regulations: The Federal rules restrict any use of the information to criminally investigate or prosecute any alcohol or drug abuse patient.[facility] the event this information is protected by the Federal Confidentiality of Alcohol and Drug Abuse Patient Records regulations: The Federal rules restrict any use of the information to criminally investigate or prosecute any alcohol or drug abuse patient.[facility] the event this information is protected by the Federal Confidentiality of Alcohol and Drug Abuse Patient Records regulations: The Federal rules restrict any use of the information to criminally investigate or prosecute any alcohol or drug abuse patient.[facility] Reason for Visit (unrecogniz ed section and content) Reason Comments Rheumatoid Arthritis Reason Comments PT Discharge Specialty Diagnoses / Procedures Referred By Contac t Referred To Contact [facility] Diagnoses Bilateral shoulder pain, unspecified chronicity Trochanteric bursitis of left hip Trochanteric bursitis of right hip Pain in joint, multiple sites Procedures PT REHAB FOLLOW UP ORDER THERAPEUTIC EXERCISES RE, EA 15 MIN. THER PX 1/> AREAS EACH 15 MIN NEUROMUSC REEDUCA MANUAL THERAPY TQS 1/> REGIONS EACH 15 MINUTES THERAPEUT ACTVITY DIRECT PT CONTACT EACH 15 MIN SELF-CARE/HOME MGMT TRAINING EACH 15 MINUTES THER PX 1/> AREAS EA 15 MIN GAIT TRAING W/Charlene Hickman MD [address] [place] [address] [facility] [place] [address] [place] [id number] Referral ID Status Reason Start Date Expiration Date Visits Requested Visits Authorized [id number] Authorized PCP Requested Referral Auto-Generate d Referral 04/01/2023 07/09/2023 8 8 FOR RECORDS PERTAINING TO PATIENTS WHO ARE [...] BE BASED ON THE PRIMARY CLINICAL RECORDS. [employer] provides no warranty or guarantee of the accuracy or completeness of information in this document.
[2025-01-25 10:07] LABS: AST(SGOT) 18 U/L (<=31); Alanine Aminotransfer ALT/SGPT 13 U/L (<=34); Albumin, Serum 4.4 g/dL (3.4-4.8); Alkaline Phosphatase 82 U/L (35-104); Bilirubin, Direct 0.16 mg/dL (0.00-0.30); Cholesterol 152 mg/dL (<=200); Globulin 2.9 g/dL (2.2-4.2); Low Density Lipoprotein Calc. 58 mg/dL; Triglycerides 255 mg/dL; Very Low Density Lipoprotein 51 mg/dL (5-40); cholesterol:hdl ratio screen 2.80
== END | disposition home or self-care (01) ==
LOC: LAB 08:25
PROVIDERS: PCP Nurse Practitioner Family; Referring Provider Student in an Organized Health Care Education/Training Program; Visit Provider Student in an Organized Health Care Education/Training Program
DX: E78.5 Hyperlipidemia, unspecified (principal)
CPT/HCPCS: 36415; 80061; 80076